=== PATIENT | female | born 1945 | race Caucasian/White ===

== ENCOUNTER 2019-10-19 09:08 | Outpatient (CLI) | payer MEDICARE, OTHER, SELFPAY ==
--- NOTE | 2019-10-19 | XR_ITS ---
WS: [id number] CHEST 2 VIEWS HISTORY: COUGH, CHRONIC COMPARISON: 09/05/2019 Lungs: Clear with no abnormality. No pleural effusion or pneumothorax. Cardiac size: Mildly enlarged cardiac silhouette. Mediastinum/Aorta: Mild atherosclerosis aorta. Bones: Normal. XR/XR chest 2V* [id number] IMPRESSION: Partially calcified thoracic aorta. No acute cardiopulmonary disease.
== END 2019-10-19 09:09 | disposition home or self-care (01) ==
LOC: WPI 09:17
PROVIDERS: Family Provider Electrodiagnostic Medicine; PCP Electrodiagnostic Medicine; Referring Provider Electrodiagnostic Medicine; Visit Provider Electrodiagnostic Medicine
DX: I70.0 Atherosclerosis of aorta (principal); R05 Cough
CPT/HCPCS: 71046

== ENCOUNTER 2020-03-13 06:41 | Emergency (ER) | payer MEDICARE, OTHER, SELFPAY ==
[2020-03-13 06:47] VITALS: BP 207/107; PULSE 96; RESP 20; TEMP 37.2; O2SAT 97; BMI 27.0
--- NOTE | 2020-03-13 06:52 | USCV_ITS ---
Olena Carmella Age: 74 Gender: F : 1945 Exam Date: 03/13/2020 07:20 Ordering Phys: Osei Victoria DO Technologist: KARON GREENE Exam Location: [facility] [place] Indication: PAIN AND SWELLING PROCEDURES: Venous duplex imaging was performed in only the right lower extremity. The following venous structures were evaluated: common femoral vein, profunda vein, proximal portion of the greater saphenous vein, superficial femoral vein, and the popliteal vein. In addition, the posterior tibial and peroneal trunk were evaluated. Serial compression, augmentation maneuvers, and spectral Doppler flow evaluation were performed. FINDINGS: Normal 2-D Doppler and augmentation and compressibility throughout the lower extremity venous structures. Additional imaging through the proximal calf veins also reveals no thrombus. Limited evaluation of the greater saphenous vein is patent with no thrombus. CONCLUSIONS No DVT right lower extremity. Dr. Day Lobato DO (Electronically Signed) Final Date: 13 March 2020 11:47 S
--- NOTE | 2020-03-13 07:11 | W.ED.EXTPRO ---
HPI - Extremity Problem General: Chief complaint: Extremity Problem,Nontraumatic Stated complaint: POSS CLOT IN RIGHTS LEG Time Seen by Provider: 03/13/20 06:52 History of Present Illness: HPI Narrative: She complains of pain and swelling to the posterior aspect of the right leg. No known injury. MD Complaint: extremity pain and extremity swelling Onset (ago): day(s) Pain Consistency: intermittent Location: right and lower extremity Quality: stabbing Radiation: none Relieving factors: nothing Exacerbating factors: weight bearing, walking and palpation Associated symptoms: Reports no associated symptoms Review of Systems General: Reports: 10 or more systems reviewed and unremarkable except in HPI and below PFSH ED PFSH: Medical History CAD (coronary artery disease) Diabetes Dyslipidemia HTN (hypertension) Ischemic cardiomyopathy Surgical History S/P appendectomy S/P cholecystectomy S/P hysterectomy Family History Other CAD (coronary artery disease) Cancer Diabetes Social History Smoking and tobacco status: former smoker Alcohol intake: never Physical Exam Extremity: COMMON NORMALS: full ROM, no joint enlargement and no clubbing, cyanosis or edema; negative for no calf tenderness GENERAL: Yes calf tenderness Course Vital Signs: Vital signs: Vital Signs Temperature 99.0 F 03/13/20 06:47 Pulse Rate 86 03/13/20 07:52 Respiratory Rate 18 03/13/20 07:52 Blood Pressure 100/62 03/13/20 07:52 Pulse Oximetry 98 03/13/20 07:52 MDM - Extremity (Nontraumatic) Lab Data: Labs: Lab Results 03/13/20 03/13/20 Range/Units 07:09 07:09 WBC 6.3 (4.0-10.0) 10^3/ uL RBC 4.33 (4.1-5.3) 10^6/u L Hgb 13.0 (11.5-15.3) g/dL Hct 40.7 (37.0-47.0) % MCV 94.0 (81-99) fL MCH 30.0 (28.0-34.0) pg MCHC 31.9 (30.0-36.0) g/dL RDW 12.0 L (12.1-15.1) % Plt Count 218 (130-400) 10^3/c mm MPV 11.0 H (7.4-10.4) fL Neut % (Auto) 58.8 % Lymph % (Auto) 28.2 % [place] % (Auto) 9.9 % Eos % (Auto) 1.9 % Baso % (Auto) 1.0 % Neut # (Auto) 3.7 (1.8-7.7) 10^3/u L Lymph # (Auto) 1.8 (0.8-4.8) 10^3/u L [place] # (Auto) 0.6 (0.2-0.9) 10^3/u L Eos # (Auto) 0.1 (0.0-0.8) 10^3/u L Baso # (Auto) 0.1 (0.0-0.1) 10^3/u L Nucleated RBC % (a uto) 0 % Nucleated RBCs # 0.0 /100WBC Sodium 135 L (136-145) mmol/L Potassium 4.3 (3.5-5.1) mmol/L Chloride 99 (98-107) mmol/L Carbon Dioxide 25 (22-29) mmol/L Anion Gap 15.3 (5-19) BUN 16 (8-23) mg/dL Creatinine 0.7 (0.5-0.9) mg/dL Glucose 388 H (65-115) mg/dL Calculated Osmolal ity 292 (285-295) mOsm/k g Calcium 11.0 H (8.5-10.5) mg/dL Total Bilirubin 0.3 (0.15-1.2) mg/dL AST 18 (0-32) U/L ALT 23 (0-33) U/L Alkaline Phosphata se 85 (35-105) IU/L Total Protein 7.6 (6.6-8.7) g/dL Albumin 4.3 (3.5-5.2) g/dL Globulin 3.3 (1.3-4.6) g/dL Discharge Plan Discharge Patient Disposition: Home, Self-Care Clinical Impression: Calf pain Qualifiers: Laterality: right Qualified Code(s): M79.661 - Pain in right lower leg Strain of calf muscle Qualifiers: Encounter type: initial encounter Laterality: right Qualified Code(s): S86.811A - Strain of other muscle(s) and tendon(s) at lower leg level, right leg, initial encounter Condition: Stable Prescriptions: New Tylenol-Codeine #3 300-30 mg tablet 1 tab PO Q6H PRN (Reason: pain) Qty: 10 RF: 0 No Action lisinopril 20 mg tablet 30 mg PO DAILY RF: 0 furosemide 20 mg tablet 20 mg PO DAILY RF: 0 coenzyme Q10 PO RF: 0 insulin glargine SUBCUT RF: 0 albuterol sulfate [Ventolin HFA] 90 mcg/actuation HFA aerosol inhaler 2 puff INHALATION Q6H PRNRF: 0 lysine [L-Lysine] 500 mg tablet 500 mg PO DAILY RF: 0 turmeric PO RF: 0 carvedilol 6.25 mg tablet See Rx Instructions .ROUTE .COMPLEX Qty: 270 RF: 3 Discharge Orders: Discharge Order (Routine); Ordered 03/13/20 Ordered By: Osei Victoria Referrals: Charbel Glez DO [Primary Care Provider] - Coding Level of Care Code 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
[2020-03-13 07:28] LABS: Basophils # 0.1 10^3/uL (0.0-0.1); Eosinophils # 0.1 10^3/uL (0.0-0.8); Eosinophils % 1.9 %; Hematocrit 40.7 % (37.0-47.0); Lymphocytes # 1.8 10^3/uL (0.8-4.8); Lymphocytes % 28.2 %; Mean Corpuscular HGB Conc 31.9 g/dL (30.0-36.0); Monocytes # 0.6 10^3/uL (0.2-0.9); Monocytes % 9.9 %; Neutrophils # 3.7 10^3/uL (1.8-7.7); Neutrophils % 58.8 %; Nucleated Red Blood Cells % 0 %; Platelet Count 218 10^3/cmm (130-400); Red Blood Count 4.33 10^6/uL (4.1-5.3); White Blood Count 6.3 10^3/uL (4.0-10.0)
[2020-03-13 07:45] LABS: Alanine Aminotransferase 23 U/L (0-33); Albumin Level 4.3 g/dL (3.5-5.2); Alkaline Phosphatase 85 IU/L (35-105); Anion Gap 15.3 (5-19); Aspartate Amino Transferase 18 U/L (0-32); Blood Urea Nitrogen 16 mg/dL (8-23); Carbon Dioxide 25 mmol/L (22-29); Chloride 99 mmol/L (98-107); Creatinine Clr Calc Pharmacy 56.2538; Globulin 3.3 g/dL (1.3-4.6); Glucose 388 mg/dL (65-115); Osmolality Calculated 292 mOsm/kg (285-295); Potassium 4.3 mmol/L (3.5-5.1); Sodium 135 mmol/L (136-145); Total Bilirubin 0.3 mg/dL (0.15-1.2); Total Protein 7.6 g/dL (6.6-8.7)
[2020-03-13 07:52] VITALS: BP 100/62; PULSE 86; RESP 18; O2SAT 98
[2020-03-13] MEDS: carvedilol 12.5 mg Tablet PO (08:14)
[2020-03-13] MEDS: lisinopril 20 mg Tablet PO (08:14)
[2020-03-13 08:27] VITALS: BP 190/118; PULSE 80; RESP 20; O2SAT 98
== END 2020-03-13 08:29 | disposition home or self-care (01) ==
PROVIDERS: Emergency Provider Family Medicine; PCP Electrodiagnostic Medicine
DX: S86.811A Strain of other muscle(s) and tendon(s) at lower leg level, right leg, initial encounter (principal); X58.XXXA Exposure to other specified factors, initial encounter; I25.10 Atherosclerotic heart disease of native coronary artery without angina pectoris; E11.9 Type 2 diabetes mellitus without complications; E78.5 Hyperlipidemia, unspecified; I10 Essential (primary) hypertension; Z87.891 Personal history of nicotine dependence; M79.604 Pain in right leg
CPT/HCPCS: 12345; 36415; 80053; 85025; 93971; 99281; 99283

== ENCOUNTER 2020-03-20 09:59 | Outpatient (CLI) | payer MEDICARE, OTHER, SELFPAY ==
--- NOTE | 2020-03-20 10:22 | USCV_ITS ---
Carmella Hyatt Age: 74 Gender: F : 1945 Exam Date: 03/20/2020 10:12 Ordering Phys: Charbel Glez DO Technologist: Exam Location: [facility] [place] Indication: HYPERTENSION RIGHT LEFT Brachial 183.00 mmHg Brachial 179.00 mmHg Pressure (mmHg) Waveform Pressure (mmHg) Waveform 131.00 [employer] 205.00 152.00 DPA 199.00 0.83 Ankle/Brachial Index 1.12 119.00 Pre-Exercise Toe Pressure 126.00 0.65 Pre-Exercise Toe/Brachial Index 0.69 FINDINGS Normal resting MICHAEL on the left side. Slightly diminished resting MICHAEL on the right side. Mildly diminished resting TBIs bilaterally CONCLUSIONS Features of mild peripheral artery disease bilaterally Dr Dakota Gilmore MD FAC (Electronically Signed) Final Date: 20 March 2020 18:08 S
== END 2020-03-20 10:00 | disposition home or self-care (01) ==
LOC: RAD 10:03
PROVIDERS: PCP Electrodiagnostic Medicine; Visit Provider Electrodiagnostic Medicine
DX: E11.65 Type 2 diabetes mellitus with hyperglycemia (principal); M79.661 Pain in right lower leg; I10 Essential (primary) hypertension; I73.9 Peripheral vascular disease, unspecified
CPT/HCPCS: 93922

== ENCOUNTER 2020-06-08 06:46 | Outpatient (CLI) | payer MEDICARE, OTHER, SELFPAY ==
--- NOTE | 2020-06-08 06:53 | XR_ITS ---
WS: [id number] Right knee, 3 views, 06/08/2020 Clinical Data: fall, knee pain Comparison: Right knee, 04/30/2014. Findings: No fractures or dislocations are seen. Mild narrowing of the medial joint compartment is noted.. The patella is intact. The soft tissues are unremarkable. XR/XR knee RT 3V* [id number] Impression: Negative for right knee fracture.
== END 2020-06-08 06:47 | disposition home or self-care (01) ==
PROVIDERS: PCP Electrodiagnostic Medicine; Visit Provider Electrodiagnostic Medicine
DX: M25.561 Pain in right knee (principal); W19.XXXA Unspecified fall, initial encounter
CPT/HCPCS: 73562

== ENCOUNTER 2021-02-22 02:34 | Emergency (ER) | payer MEDICARE, OTHER, SELFPAY ==
[2021-02-22] VITALS (35 sets, daily range): BP systolic 99–209; BP diastolic 70–147; PULSE 0–105; RESP 13–31; TEMP 36.9; O2SAT 82–97; BMI 26.4
--- NOTE | 2021-02-22 02:41 | ECG_ITS ---
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 Measurements Intervals Guy Rate: 80 P: 38 MO: 209 QRS: 9 QRSD: 94 T: 40 QT: 395 QTc: 458 Interpretive Statements SINUS RHYTHM MINIMAL ST DEPRESSION [0.025+ mV ST DEPRESSION] Compared to ECG 09/05/2019 23:12:10 ST (T wave) deviation now present Left ventricular hypertrophy no longer present Myocardial infarct finding no longer present Electronically Signed On 02-22-2021 21:54:40 CDT by Milton Diaz M.D. [id number]
--- NOTE | 2021-02-22 02:41 | XRR_ITS ---
PROCEDURE INFORMATION: Exam: XR Chest Exam date and time: 02/22/2021 2:46 AM Age: 75 years old Clinical indication: Shortness of breath; Patient HX: SOB. Transient bradycardia. Artifacts removed as best as possible. TECHNIQUE: Imaging protocol: XR of the chest. Views: 1 view. COMPARISON: CR XR chest 2V* [id number] 10/19/2019 9:32 AM FINDINGS: Lungs: Mild interstitial opacities in the right lung can be secondary to viral infection or asymmetric pulmonary edema. Pleural spaces: Unremarkable. No pleural effusion. No pneumothorax. Heart/Mediastinum: Mild cardiomegaly. Bones/joints: No acute fracture. XR/XR chest 1V portable [id number] IMPRESSION: Mild interstitial opacities in the right lung can be secondary to viral infection or asymmetric pulmonary edema.
--- NOTE | 2021-02-22 02:44 | ED_ITS ---
HPI - SOB/Dyspnea General: Chief Complaint: Shortness of Breath/Dyspnea Stated Complaint: SOB Time Seen by Provider: 02/22/21 02:35 Source: patient Mode of arrival: ambulatory Limitations: no limitations History of Present Illness: HPI Narrative: 75-year-old female does have a history of COPD. She states she is at work tonight roughly 30 minutes ago and had sudden onset of severe shortness of breath. Patient here is quite hypertensive and is in distress. She is able to speak in roughly 2-4 word sentences. She does have wheezing and rales. She denies any cough or fever. States her dyspnea is worse with exertion and improves somewhat with rest. She denies any chest pain. Denies any nausea vomiting. Associated symptoms: Deny abdominal pain, chest pain, fever(s), nausea or vomiting Review of Systems Const: Denies: fever(s), chills, body aches or change in appetite Eyes: Denies: blurry vision or eye discomfort ENMT: Denies: throat pain or dental pain Card: Denies: chest pain Resp: Reports: dyspnea GI: Denies: abdominal pain, nausea, vomiting or diarrhea : Denies: dysuria Musc: Denies: neck pain or back pain Skin/Breast: Denies: rash Neuro: Denies: headache(s) Psych: Denies: depression Jose/Lymph: Denies: easy bruising All/Imm: Denies: urticaria PFSH ED PFSH: Medical History (Updated 02/22/21 @ 04:45 by Chen Quezada MD) CAD (coronary artery disease) Diabetes Dyslipidemia HTN (hypertension) Ischemic cardiomyopathy Surgical History S/P appendectomy S/P cholecystectomy S/P hysterectomy Family History Other CAD (coronary artery disease) Cancer Diabetes Social History Smoking and tobacco status: former smoker Alcohol intake: never Physical Exam Const: COMMON NORMALS: patient oriented x3 and healthy appearing GENERAL APPEARANCE: in distress HENMT: COMMON NORMALS: normocephalic and atraumatic HEAD & SCALP: normocephalic and atraumatic Eye: COMMON NORMALS: Equal, round and reactive pupils present and EOMs intact bilaterally PUPIL: Yes Equal, round and reactive pupils present Neck/C-Spine: COMMON NORMALS: full ROM and supple Chest: COMMONS NORMALS: normal inspection of the chest and normal palpation of entire chest wall Resp: COMMON NORMALS: clear to auscultation bilaterally EFFORT & INSPECTION: Yes tachypneic, Yes respiratory distress and Yes labored AUSCULTATION: clear to auscultation bilaterally, rales and wheezes Cardio: COMMON NORMALS: regular rate, regular rhythm and No murmurs present (C ardio) RATE: regular rate RHYTHM: regular rhythm GI: COMMON NORMALS: Normal to inspection, nondistended, normoactive bowel sounds present, Soft to palpation, non-tender and no masses PALPATION: Yes Soft to palpation Extremity: COMMON NORMALS: normal to inspection and full ROM Neuro: COMMON NORMALS: patient oriented x3, moves all extremities and no focal motor deficits Psych: COMMON NORMALS: mental status grossly normal, Normal thought process present and cooperative THOUGHT PROCESS: Normal thought process present Skin: COMMON NORMALS: no rashes or lesions noted and no wounds GENERAL SKIN EXAM: no rashes or lesions noted Course Reevaluation(s): Reevaluation #1: Patient was placed on BiPAP and given labetalol for her high blood pressure as is concerned she had flash pulmonary edema. Patient believes had a vagal episode along with the fact labetalol and became bradycardic. Her heart rate went down into the 30s but only lasted 1 to 2 minutes. It increased back into the 70s after that. Her blood pressure now is 110/80. Patient had improved on the BiPAP and will stop BiPAP and place her on oxygen as she states the BiPAP makes her feel too anxious and suffocating Time: 03:24 Reevaluation #2: Patient is much improved here and is no longer requiring any oxygen. Her pulse ox in the room is 96% on room air. She able to speak in full senses and states she feels back to her baseline. Patient likely had a sudden asthma attack. Her blood pressure here is improved as well and is now 150/80. We will check a 2-hour troponin at this time. Time: 04:43 Vital Signs: Vital signs: Vital Signs Temperature 98.4 F 02/22/21 02:39 Pulse Rate 93 02/22/21 05:35 Respiratory Rate 18 02/22/21 05:35 Blood Pressure 162/93 02/22/21 05:35 Pulse Oximetry 94 02/22/21 05:35 MDM - SOB/Dyspnea MDM Narrative: Medical decision making narrative: Patient presents here with a likely asthma exacerbation. She is much improved here and is not requiring any more oxygen. I feel she is stable for discharge. Her blood pressure is normalized as well. We will place her on doxycycline as her x-ray shows a possible pneumonia. Patient has had Covid in the Covid vaccine and I do not believe she has Covid. We will place her on steroids as well. And prescribe her albuterol nebs as she has a nebulizer at home as well. Lab Data: Labs: Lab Results 02/22/21 02/22/21 02/22/21 Range/Units 02:50 02:50 02:50 WBC 6.2 (4.0-10.0) 10^3/ uL RBC 4.60 (4.1-5.3) 10^6/u L Hgb 13.9 (11.5-15.3) g/dL Hct 42.9 (37.0-47.0) % MCV 93.3 (81-99) fL MCH 30.2 (28.0-34.0) pg MCHC 32.4 (30.0-36.0) g/dL RDW 12.3 (12.1-15.1) % Plt Count 234 (130-400) 10^3/c mm MPV 10.8 H (7.4-10.4) fL Neut % (Auto) 45.9 % Lymph % (Auto) 40.1 % [place] % (Auto) 10.7 % Eos % (Auto) 2.3 % Baso % (Auto) 0.8 % Neut # (Auto) 2.83 (1.8-7.7) 10^3/u L Lymph # (Auto) 2.5 (0.8-4.8) 10^3/u L [place] # (Auto) 0.7 (0.2-0.9) 10^3/u L Eos # (Auto) 0.1 (0.0-0.8) 10^3/u L Baso # (Auto) 0.1 (0.0-0.1) 10^3/u L Nucleated RBC % (a uto) 0 % Nucleated RBCs # 0.0 /100WBC Specimen Type Sample Site ABG pH (7.35-7.45) ABG pCO2 (35-45) mmHg ABG pO2 (80.0-100.0) mmH g ABG HCO3 (22-26) mmol/L ABG Base Excess (-2.0-2.0) mmol/ L Khris Test Hematocrit (37-47) % Hgb O2 Saturation (95-100) % Carboxyhemoglobin (0.4-20.1) %THgb Methemoglobin (0.4-1.5) % Total Hemoglobin (12-16) g/dL O2 Delivery Device FiO2 % Emergency Room Registered Nurse ID Sodium 143 (136-145) mmol/L Potassium 3.8 (3.5-5.1) mmol/L Chloride 106 (98-107) mmol/L Carbon Dioxide 29 (22-29) mmol/L Anion Gap 11.8 (5-19) BUN 23 (8-23) mg/dL Creatinine 0.8 (0.5-0.9) mg/dL GFR Calculation Not Reportable Glucose 208 H (65-115) mg/dL Calculated Osmolal ity 306 H (285-295) mOsm/k g Calcium 9.9 (8.5-10.5) mg/dL Total Bilirubin 0.3 (0.15-1.2) mg/dL AST 16 (0-32) U/L ALT 18 (0-33) U/L Alkaline Phosphata se 88 (35-105) IU/L Troponin T Baselin e 9 (0-10) ng/L Troponin T 120 Min [place] (0-10) ng/L Delta Troponin T (0-10) ABS# NT-Pro-B Natriuret Pep 255 (0-450) pg/mL Total Protein 7.5 (6.6-8.7) g/dL Albumin 4.5 (3.5-5.2) g/dL Globulin 3.0 (1.3-4.6) g/dL 02/22/21 02/22/21 Range/Units 02:55 04:42 WBC (4.0-10.0) 10^3/ uL RBC (4.1-5.3) 10^6/u L Hgb (11.5-15.3) g/dL Hct (37.0-47.0) % MCV (81-99) fL MCH (28.0-34.0) pg MCHC (30.0-36.0) g/dL RDW (12.1-15.1) % Plt Count (130-400) 10^3/c mm MPV (7.4-10.4) fL Neut % (Auto) % Lymph % (Auto) % [place] % (Auto) % Eos % (Auto) % Baso % (Auto) % Neut # (Auto) (1.8-7.7) 10^3/u L Lymph # (Auto) (0.8-4.8) 10^3/u L [place] # (Auto) (0.2-0.9) 10^3/u L Eos # (Auto) (0.0-0.8) 10^3/u L Baso # (Auto) (0.0-0.1) 10^3/u L Nucleated RBC % (a uto) % Nucleated RBCs # /100WBC Specimen Type Arterial Sample Site Brachial, right ABG pH 7.39 (7.35-7.45) ABG pCO2 43.3 (35-45) mmHg ABG pO2 72.7 L (80.0-100.0) mmH g ABG HCO3 26.2 H (22-26) mmol/L ABG Base Excess 0.9 (-2.0-2.0) mmol/ L Khris Test N/a Hematocrit 41.9 (37-47) % Hgb O2 Saturation 93.5 L (95-100) % Carboxyhemoglobin 0.8 (0.4-20.1) %THgb Methemoglobin 0.9 (0.4-1.5) % Total Hemoglobin 13.7 (12-16) g/dL O2 Delivery Device Bipap FiO2 35.0 % Emergency Room Registered Nurse ID Harkr Sodium (136-145) mmol/L Potassium (3.5-5.1) mmol/L Chloride (98-107) mmol/L Carbon Dioxide (22-29) mmol/L Anion Gap (5-19) BUN (8-23) mg/dL Creatinine (0.5-0.9) mg/dL GFR Calculation Glucose (65-115) mg/dL Calculated Osmolal ity (285-295) mOsm/k g Calcium (8.5-10.5) mg/dL Total Bilirubin (0.15-1.2) mg/dL AST (0-32) U/L ALT (0-33) U/L Alkaline Phosphata se (35-105) IU/L Troponin T Baselin e (0-10) ng/L Troponin T 120 Min [place] 12.23 H (0-10) ng/L Delta Troponin T 3.23 (0-10) ABS# NT-Pro-B Natriuret Pep (0-450) pg/mL Total Protein (6.6-8.7) g/dL Albumin (3.5-5.2) g/dL Globulin (1.3-4.6) g/dL Imaging Data^: CXR: Attestation: I personally reviewed and interpreted this imaging study as follows: Radiologist's impression: [address] [address] XRay Report Signed Patient: Carmlela Hyatt Unit #: [id number] : 1945 Age/Sex: 75 / F ADM Date: 02/22/21 Loc: ER Room/Bed: Attending Dr: Ordering Provider/Ordering MD: Chen Quezada MD Date of Service: 02/22/21 Procedure(s): XR chest 1V portable [id number] Accession Number(s): [id number] Report Number: [id number] PROCEDURE INFORMATION: Exam: XR Chest Exam date and time: 02/22/2021 2:46 AM Age: 75 years old Clinical indication: Shortness of breath; Patient HX: SOB. Transient bradycardia. Artifacts removed as best as possible. TECHNIQUE: Imaging protocol: XR of the chest. Views: 1 view. COMPARISON: CR XR chest 2V* [id number] 10/19/2019 9:32 AM FINDINGS: Lungs: Mild interstitial opacities in the right lung can be secondary to viral infection or asymmetric pulmonary edema. Pleural spaces: Unremarkable. No pleural effusion. No pneumothorax. Heart/Mediastinum: Mild cardiomegaly. Bones/joints: No acute fracture. XR/XR chest 1V portable [id number] IMPRESSION: Mild interstitial opacities in the right lung can be secondary to viral infection or asymmetric pulmonary edema. EKG Data^: EKG 1: Attestation: I personally reviewed and interpreted this EKG as follows: EKG Interpretation Date: 02/22/21 EKG interpretation time: 03:12 Interpretation: nsr hr [address] elevation qrs 94 qtc 431 EKG 2: Attestation: I personally reviewed and interpreted this EKG as follows: EKG Interpretation Date: 02/22/21 EKG interpretation time: 03:20 Interpretation: sinus tasha hr [address] elevation qrs 84 qtc 415 Discharge Plan Discharge Patient Disposition: Home Clinical Impression: Asthma with exacerbation Qualifiers: Asthma severity: unspecified severity Asthma persistence: unspecified Qualified Code(s): J45.901 - Unspecified asthma with (acute) exacerbation Condition: Stable Prescriptions: New albuterol sulfate 2.5 mg /3 mL (0.083 %) solution for nebulization 2.5 mg INHALATION Q4H PRN (Reason: shortness of breath or wheezing) Qty: 90 RF: 0 prednisone 50 mg tablet 50 mg PO DAILY Qty: 5 RF: 0 doxycycline hyclate 100 mg capsule 100 mg PO BID 7 Days Qty: 14 RF: 0 No Action vitamin B complex [B Complex-Vitamin B12] PO RF: 0 Cardio-plus PO RF: 0 amlodipine 5 mg tablet 5 mg PO DAILY Qty: 90 RF: 2 coenzyme Q10 PO RF: 0 albuterol sulfate [Ventolin HFA] 90 mcg/actuation HFA aerosol inhaler 2 puff INHALATION Q6H PRNRF: 0 lysine [L-Lysine] 500 mg tablet 500 mg PO DAILY RF: 0 turmeric PO RF: 0 Levemir FlexTouch U-100 Insuln 100 unit/mL (3 mL) insulin pen 28 unit SUBCUT DAILY RF: 0 carvedilol 6.25 mg tablet See Rx Instructions .ROUTE .COMPLEX Qty: 270 RF: 3 lisinopril 40 mg tablet 40 mg PO DAILY Qty: 90 RF: 2 Tylenol-Codeine #3 300-30 mg tablet 1 tab PO Q6H PRN (Reason: pain) Qty: 10 RF: 0 Discharge Orders: Discharge ED (Routine); Ordered 02/22/21 Ordered By: Chen Quezada Referrals: Charbel Glez, [Primary Care Provider] - 1-3 days Discharge Diet: Advance as tolerated Discharge Activity: Resume usual activity Patient Instructions: Asthma (ED) Coding Level of Care Code ED Production Consultant for Chg Fwd Exam Comprehensive
[2021-02-22] MEDS: ipratropium-albuterol 3 mL Neb INHALATION (03:00)
[2021-02-22 03:01] LABS: Basophils # 0.1 10^3/uL (0.0-0.1); Basophils % 0.8 %; Eosinophils # 0.1 10^3/uL (0.0-0.8); Eosinophils % 2.3 %; Hematocrit 42.9 % (37.0-47.0); Hemoglobin 13.9 g/dL (11.5-15.3); Lymphocytes # 2.5 10^3/uL (0.8-4.8); Lymphocytes % 40.1 %; Mean Corpuscular HGB Conc 32.4 g/dL (30.0-36.0); Mean Corpuscular Hemoglobin 30.2 pg (28.0-34.0); Mean Corpuscular Volume 93.3 fL (81-99); Mean Platelet Volume 10.8 fL (7.4-10.4); Monocytes # 0.7 10^3/uL (0.2-0.9); Monocytes % 10.7 %; Neutrophils # 2.83 10^3/uL (1.8-7.7); Neutrophils % 45.9 %; Nucleated Red Blood Cells % 0 %; Platelet Count 234 10^3/cmm (130-400); Red Cell Distribution Width 12.3 % (12.1-15.1); White Blood Count 6.2 10^3/uL (4.0-10.0)
[2021-02-22] MEDS: labetalol 5 mg/mL SDV 20mL 20 MG IVP (03:01)
[2021-02-22] MEDS: nitroglycerin 0.4 mg sublingual Tablet SUBLINGUAL (03:05)
[2021-02-22 03:06] LABS: ABG PCO2 43.3 mmHg (35-45); ABG PH Result 7.39 (7.35-7.45); Arterial Blood Gas Hematocrit 41.9 % (37-47); Base Excess ABG 0.9 mmol/L (-2.0-2.0); Blood Gas Operator Identificat HARKR; Blood Gas Sample Site Brachial, right; Blood Gas Sample Type Arterial; Carboxyhemoglobin 0.8 %THgb (0.4-20.1); HCO3 ABG 26.2 mmol/L (22-26); HGB O2 Sat 93.5 % (95-100); Methemoglobin 0.9 % (0.4-1.5); Oxygen Device BIPAP; PO2 ABG 72.7 mmHg (80.0-100.0); Total Hemoglobin 13.7 g/dL (12-16)
[2021-02-22 03:23] LABS: Troponin(5th) Baseline 9 ng/L (0-10)
[2021-02-22 03:32] LABS: Alanine Aminotransferase 18 U/L (0-33); Albumin Level 4.5 g/dL (3.5-5.2); Alkaline Phosphatase 88 IU/L (35-105); Anion Gap 11.8 (5-19); Aspartate Amino Transferase 16 U/L (0-32); Blood Urea Nitrogen 23 mg/dL (8-23); Calcium 9.9 mg/dL (8.5-10.5); Carbon Dioxide 29 mmol/L (22-29); Chloride 106 mmol/L (98-107); Creatinine Clr Calc Pharmacy 54.8687; Glucose 208 mg/dL (65-115); NT Pro B Type Natriuretic Pept 255 pg/mL (0-450); Osmolality Calculated 306 mOsm/kg (285-295); Potassium 3.8 mmol/L (3.5-5.1); Sodium 143 mmol/L (136-145); Total Bilirubin 0.3 mg/dL (0.15-1.2); Total Protein 7.5 g/dL (6.6-8.7)
--- NOTE | 2021-02-22 04:41 | ECG_ITS ---
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 Measurements Intervals [place] Rate: 49 P: 69 OR: 179 QRS: 40 QRSD: 84 T: 69 QT: 444 QTc: 404 Interpretive Statements SINUS BRADYCARDIA MODERATE ST DEPRESSION [0.05+ mV ST DEPRESSION] Compared to ECG 02/22/2021 03:12:46 Sinus rhythm no longer present ST (T wave) deviation still present Electronically Signed On 02-22-2021 22:01:07 CDT by Milton Diaz M.D. [id number] f
[2021-02-22 05:15] LABS: Troponin 5 2HR 12.23 ng/L (0-10); Troponin 5 2HR Delta 3.23 ABS# (0-10)
== END 2021-02-22 05:36 | disposition home or self-care (01) ==
PROVIDERS: Emergency Provider Emergency Medicine; PCP Electrodiagnostic Medicine
DX: J45.901 Unspecified asthma with (acute) exacerbation (principal); I25.10 Atherosclerotic heart disease of native coronary artery without angina pectoris; E11.9 Type 2 diabetes mellitus without complications; E78.5 Hyperlipidemia, unspecified; I10 Essential (primary) hypertension; Z87.891 Personal history of nicotine dependence; Z79.4 Long term (current) use of insulin
CPT/HCPCS: 36600; 71045; 80053; 82805; 83880; 84484; 85025; 93005; 94640; 94660; 96374; 96375; 99284; J2930; J3490; J7611

== ENCOUNTER 2021-02-23 09:58 | Emergency (ER) | payer MEDICARE, OTHER, SELFPAY ==
--- NOTE | 2021-02-23 10:01 | XRR_ITS ---
PROCEDURE INFORMATION: Exam: XR Chest Exam date and time: 02/23/2021 10:02 AM Age: 75 years old Clinical indication: Cough and dyspnea; Prior surgery; Surgery date: 6+ months; Surgery type: Stents x3; Additional info: Dyspnea/cough TECHNIQUE: Imaging protocol: XR of the chest. Views: 1 view. COMPARISON: CR (CHEST, ) 02/22/2021 3:02 AM FINDINGS: Lungs: Bilateral hilar to lower lobe atelectasis versus minimal infiltrate. Emphysematous changes suspected. Pleural spaces: Unremarkable. No pleural effusion. No pneumothorax. Heart/Mediastinum: Cardiomegaly. Bones/joints: Unremarkable. XR/XR chest 1V portable [id number] IMPRESSION: 1. Cardiomegaly. 2. Bilateral hilar to lower lobe atelectasis versus minimal infiltrate. 3. Emphysematous changes suspected.
--- NOTE | 2021-02-23 10:01 | ECG_ITS ---
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 Measurements Intervals [place] Rate: 79 P: 24 SD: 195 QRS: 3 QRSD: 85 T: 21 QT: 377 QTc: 435 Interpretive Statements SINUS RHYTHM MODERATE VOLTAGE CRITERIA FOR LVH, CONSIDER NORMAL VARIANT [MEETS CRITERIA IN ONE OF: R(aVL), S(V1), R(V5), R(V5/V6)+S(V1)] Compared to ECG 02/22/2021 03:20:32 Sinus bradycardia no longer present ST (T wave) deviation no longer present Electronically Signed On 02-23-2021 14:47:57 CDT by Dakota Gilmore M.D. [id number]
--- NOTE | 2021-02-23 10:02 | ED_ITS ---
HPI - SOB/Dyspnea General: Chief Complaint: Shortness of Breath/Dyspnea Stated Complaint: SOB Time Seen by Provider: 02/23/21 10:01 History of Present Illness: HPI Narrative: 75-year-old female complaining of shortness of breath. Mildly productive cough pain with deep breath on inspiration. Patient was seen yesterday and started on antibiotic and steroids. She noticed tachycardia with the albuterol nebulizer. She had a single episode of hemoptysis has not had any recurrence. She states she just felt funny when she used the albuterol and did not dare to use it anymore. She has a known history of coronary disease she was supposed to have a stress test but did not because she was concerned about having a stress test because of her previous cardiac stenting. MD elicited complaint: shortness of breath and cough Pertinent past history: asthma, diabetes and other (CAD) Onset (ago): day(s) Context: recent illness Timing: intermittent Severity: moderate Exacerbating factors: coughing and inspiration Relieving factors: rest and bronchodilators Known history of: asthma, diabetes and other (CAD) Associated symptoms: Reports chest congestion, chest pain and hemoptysis; Deny abdominal pain, cough, diaphoresis, dizziness, extremity pain, fever(s), lightheadedness, myalgias, nausea, orthopnea, palpitations, paresthesias, polydipsia, polyuria, rash, sense of impending doom, syncope or vomiting Treatment prior to arrival: bronchodilator Review of Systems Const: Denies: fever(s) or diaphoresis ENMT: Denies: throat pain, ear or mastoid pain, nasal discharge or nasal congestion Card: Reports: chest pain; Denies: palpitations, lightheadedness, syncope or orthopnea Resp: Reports: dyspnea, productive cough, pain on inspiration, hemoptysis and chest congestion GI: Denies: abdominal pain, nausea or vomiting : Denies: flank pain, difficulty voiding, dysuria, urinary frequency or urinary urgency Musc: Denies: extremity pain Skin/Breast: Denies: rash or pruritus Neuro: Denies: dizziness Endo: Denies: polyuria or polydipsia [facility] ED PFSH: Medical History (Updated 02/23/21 @ 13:24 by Kevin Paz DO) CAD (coronary artery disease) Diabetes Dyslipidemia HTN (hypertension) Ischemic cardiomyopathy Surgical History S/P appendectomy S/P cholecystectomy S/P hysterectomy Family History Other CAD (coronary artery disease) Cancer Diabetes Social History Smoking and tobacco status: former smoker Alcohol intake: never Physical Exam Const: COMMON NORMALS: no acute distress GENERAL APPEARANCE: cooperative and comfortable ORIENTATION/CONSCIOUSNESS: Yes awake, Yes oriented to person, Yes oriented to place and Yes oriented to time HENMT: COMMON NORMALS: normocephalic, atraumatic and hearing grossly normal bilaterally HEAD & SCALP: normocephalic and atraumatic Eye: COMMON NORMALS: Equal, round and reactive pupils present, EOMs intact bilaterally, conjunctivae normal and no scleral icterus CONJUNCTIVA: Yes conjunctivae normal PUPIL: Yes Equal, round and reactive pupils present Neck/C-Spine: COMMON NORMALS: full ROM, no lymphadenopathy, supple and no JVD Resp: COMMON NORMALS: normal respiratory effort, No retractions, No use of accessory muscles and clear to auscultation bilaterally AUSCULTATION: clear to auscultation bilaterally Cardio: COMMON NORMALS: no JVD, regular rate, regular rhythm and No murmurs present (Cardio) RATE: regular rate RHYTHM: regular rhythm GI: COMMON NORMALS: Soft to palpation and No hepatosplenomegaly present AUSCULTATION: Yes normoactive bowel sounds PALPATION: Yes Soft to palpation, No Tenderness to palpation present (GI), No Guarding due to palpation present (GI) and Yes No hepatosplenomegaly present Extremity: COMMON NORMALS: normal to inspection, capillary refill normal, no clubbing, cyanosis or edema, no calf tenderness and no pedal edema Neuro: SENSORIUM/ORIENTATION: Yes oriented to person, Yes oriented to place and Yes oriented to time Skin: COMMON NORMALS: no rashes or lesions noted GENERAL SKIN EXAM: no rashes or lesions noted Course Vital Signs: Vital signs: Vital Signs Temperature 97.8 F 02/23/21 10:05 Pulse Rate 80 02/23/21 13:41 Respiratory Rate 18 02/23/21 13:41 Blood Pressure 185/97 02/23/21 13:41 Pulse Oximetry 97 02/23/21 13:41 MDM - SOB/Dyspnea MDM Narrative: Medical decision making narrative: Reviewed findings with the patient. We will discharge her home her troponin is negative. Chest x-ray is shows questionable area of infiltrate but no clear infiltrates. EKG did not show anything acute we will discharge her home continue the antibiotics and steroids encourage her to follow-up with Dr. Talbot to get the cardiac stress test rescheduled. If has worsening or change symptoms return. Encourage her to watch her blood sugars closely while on the steroids. Lab Data: Labs: Lab Results 02/23/21 02/23/21 02/23/21 Range/Units 10:38 10:38 10:38 WBC 13.9 H (4.0-10.0) 10^3/ uL RBC 4.09 L (4.1-5.3) 10^6/u L Hgb 12.5 (11.5-15.3) g/dL Hct 38.0 (37.0-47.0) % MCV 92.9 (81-99) fL MCH 30.6 (28.0-34.0) pg MCHC 32.9 (30.0-36.0) g/dL RDW 12.2 (12.1-15.1) % Plt Count 228 (130-400) 10^3/c mm MPV 10.7 H (7.4-10.4) fL Neut % (Auto) 78.2 % Lymph % (Auto) 14.0 % [place] % (Auto) 7.4 % Eos % (Auto) 0.0 % Baso % (Auto) 0.1 % Neut # (Auto) 10.90 H (1.8-7.7) 10^3/u L Lymph # (Auto) 2.0 (0.8-4.8) 10^3/u L [place] # (Auto) 1.0 H (0.2-0.9) 10^3/u L Eos # (Auto) 0.0 (0.0-0.8) 10^3/u L Baso # (Auto) 0.0 (0.0-0.1) 10^3/u L Nucleated RBC % (a uto) 0 % Nucleated RBCs # 0.0 /100WBC Sodium 143 (136-145) mmol/L Potassium 4.3 (3.5-5.1) mmol/L Chloride 107 (98-107) mmol/L Carbon Dioxide 26 (22-29) mmol/L Anion Gap 14.3 (5-19) BUN 21 (8-23) mg/dL Creatinine 0.7 (0.5-0.9) mg/dL GFR Calculation Not Reportable Glucose 169 H (65-115) mg/dL Calculated Osmolal ity 303 H (285-295) mOsm/k g Calcium 9.9 (8.5-10.5) mg/dL Total Bilirubin 0.5 (0.15-1.2) mg/dL AST 18 (0-32) U/L ALT 16 (0-33) U/L Alkaline Phosphata se 75 (35-105) IU/L Troponin T Baselin e 20 H (0-10) ng/L Troponin T 120 Min [place] (0-10) ng/L Delta Troponin T (0-10) ABS# Total Protein 6.9 (6.6-8.7) g/dL Albumin 4.4 (3.5-5.2) g/dL Globulin 2.5 (1.3-4.6) g/dL 02/23/21 Range/Units 12:37 WBC (4.0-10.0) 10^3/ uL RBC (4.1-5.3) 10^6/u L Hgb (11.5-15.3) g/dL Hct (37.0-47.0) % MCV (81-99) fL MCH (28.0-34.0) pg MCHC (30.0-36.0) g/dL RDW (12.1-15.1) % Plt Count (130-400) 10^3/c mm MPV (7.4-10.4) fL Neut % (Auto) % Lymph % (Auto) % [place] % (Auto) % Eos % (Auto) % Baso % (Auto) % Neut # (Auto) (1.8-7.7) 10^3/u L Lymph # (Auto) (0.8-4.8) 10^3/u L [place] # (Auto) (0.2-0.9) 10^3/u L Eos # (Auto) (0.0-0.8) 10^3/u L Baso # (Auto) (0.0-0.1) 10^3/u L Nucleated RBC % (a uto) % Nucleated RBCs # /100WBC Sodium (136-145) mmol/L Potassium (3.5-5.1) mmol/L Chloride (98-107) mmol/L Carbon Dioxide (22-29) mmol/L Anion Gap (5-19) BUN (8-23) mg/dL Creatinine (0.5-0.9) mg/dL GFR Calculation Glucose (65-115) mg/dL Calculated Osmolal ity (285-295) mOsm/k g Calcium (8.5-10.5) mg/dL Total Bilirubin (0.15-1.2) mg/dL AST (0-32) U/L ALT (0-33) U/L Alkaline Phosphata se (35-105) IU/L Troponin T Baselin e (0-10) ng/L Troponin T 120 Min [place] 22.38 H (0-10) ng/L Delta Troponin T 2.38 (0-10) ABS# Total Protein (6.6-8.7) g/dL Albumin (3.5-5.2) g/dL Globulin (1.3-4.6) g/dL Discharge Plan Discharge Patient Disposition: Home Clinical Impression: Asthma with exacerbation, HTN (hypertension), Diabetes, Cough with hemoptysis Condition: Stable Prescriptions: No Action vitamin B complex [B Complex-Vitamin B12] 1 tab PO DAILY RF: 0 amlodipine 5 mg tablet 5 mg PO DAILY MDD see pharmacy comment Qty: 90 RF: 2 coenzyme Q10 1 tab PO DAILY RF: 0 albuterol sulfate [Ventolin HFA] 90 mcg/actuation HFA aerosol inhaler 2 puff INHALATION Q6H PRN (Reason: Shortness Of Breath) RF: 0 Levemir FlexTouch U-100 Insuln 100 unit/mL (3 mL) insulin pen 30 unit SUBCUT BID RF: 0 carvedilol 6.25 mg tablet See Rx Instructions .ROUTE .COMPLEX Qty: 270 RF: 3 lisinopril 40 mg tablet 40 mg PO DAILY Qty: 90 RF: 2 albuterol sulfate 2.5 mg /3 mL (0.083 %) solution for nebulization 2.5 mg INHALATION Q4H PRN (Reason: shortness of breath or wheezing) Qty: 90 RF: 0 prednisone 50 mg tablet 50 mg PO DAILY Qty: 5 RF: 0 doxycycline hyclate 100 mg capsule 100 mg PO BID 7 Days Qty: 14 RF: 0 turmeric 400 mg Capsule 400 mg PO DAILY RF: 0 Discharge Orders: Discharge ED (Routine); Ordered 02/23/21 Ordered By: Kevin Paz Referrals: Charbel Glez, [Primary Care Provider] - Discharge Diet: Usual diet Discharge Activity: Resume usual activity Patient Instructions: Opioid Safety Activity Restrictions/Additional Instructions: 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 Coding Level of Care Code ED Kit Planner for Filomena Nguyen
[2021-02-23 10:05] VITALS: BP 170/105; PULSE 80; RESP 18; TEMP 36.6; O2SAT 97; BMI 27.1
[2021-02-23 10:42] VITALS: BP 193/89; PULSE 75; RESP 18; O2SAT 97
[2021-02-23 10:49] LABS: Basophils % 0.1 %; Hemoglobin 12.5 g/dL (11.5-15.3); Mean Corpuscular HGB Conc 32.9 g/dL (30.0-36.0); Mean Corpuscular Hemoglobin 30.6 pg (28.0-34.0); Mean Corpuscular Volume 92.9 fL (81-99); Mean Platelet Volume 10.7 fL (7.4-10.4); Monocytes % 7.4 %; Neutrophils % 78.2 %; Nucleated Red Blood Cells % 0 %; Platelet Count 228 10^3/cmm (130-400); Red Blood Count 4.09 10^6/uL (4.1-5.3); Red Cell Distribution Width 12.2 % (12.1-15.1); White Blood Count 13.9 10^3/uL (4.0-10.0)
[2021-02-23 11:10] LABS: Alanine Aminotransferase 16 U/L (0-33); Albumin Level 4.4 g/dL (3.5-5.2); Alkaline Phosphatase 75 IU/L (35-105); Anion Gap 14.3 (5-19); Aspartate Amino Transferase 18 U/L (0-32); Blood Urea Nitrogen 21 mg/dL (8-23); Calcium 9.9 mg/dL (8.5-10.5); Carbon Dioxide 26 mmol/L (22-29); Chloride 107 mmol/L (98-107); Creatinine Clr Calc Pharmacy 55.0375; Globulin 2.5 g/dL (1.3-4.6); Glucose 169 mg/dL (65-115); Osmolality Calculated 303 mOsm/kg (285-295); Potassium 4.3 mmol/L (3.5-5.1); Sodium 143 mmol/L (136-145); Total Bilirubin 0.5 mg/dL (0.15-1.2); Total Protein 6.9 g/dL (6.6-8.7)
[2021-02-23 11:13] LABS: Troponin(5th) Baseline 20 ng/L (0-10)
[2021-02-23 11:18] VITALS: BP 186/102; PULSE 61; RESP 18; O2SAT 96
--- NOTE | 2021-02-23 12:01 | ECG_ITS ---
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 Measurements Intervals [place] Rate: 67 P: 82 AL: 182 QRS: 5 QRSD: 89 T: 31 QT: 409 QTc: 434 Interpretive Statements SINUS RHYTHM WITH SINUS ARRHYTHMIA LOW QRS VOLTAGE IN PRECORDIAL LEADS [QRS DEFLECTION < 1.0 mV IN CHEST LEADS] Compared to ECG 02/23/2021 10:24:18 Low QRS voltage now present Electronically Signed On 02-23-2021 15:20:02 CDT by Dakota Gilmore M.D. [email or web address]
[2021-02-23] MEDS: amlodipine 5 mg Tablet PO (13:03)
[2021-02-23 13:04] LABS: Troponin 5 2HR 22.38 ng/L (0-10); Troponin 5 2HR Delta 2.38 ABS# (0-10)
[2021-02-23 13:24] VITALS: BP 182/90; PULSE 82; RESP 21; O2SAT 98
--- NOTE | 2021-02-23 13:25 | PC.NURSE ---
Pt sts she feels like her problem is in her R-lung. Pt appears to have quite a bit of anxiety. Pt updated on plan of care, comfort measures offered, daughter at bedside, no other immediate needs identified, will continue to monitor.
[2021-02-23 13:41] VITALS: BP 185/97; PULSE 80; RESP 18; O2SAT 97
--- NOTE | 2021-02-25 10:32 | DCPLANNER ---
betting agency manager had message to schedule a follow up appointment for patient with pulmonology for hemoptysis. betting agency manager called the [facility], spoke with Tiffany, gave clinic patients information. A followup appointment was scheduled for Saturday, February 27, 2021 at 3:[address] Suazo. betting agency manager called patient and informed patient of the scheduled appointment.
--- NOTE | 2021-03-28 17:05 | DCPLANNER ---
Patient had a follow up appointment scheduled for 02.25.21 with heart care - patient did attend appointment.
== END 2021-02-23 13:41 | disposition home or self-care (01) ==
PROVIDERS: Emergency Provider Family Medicine; PCP Electrodiagnostic Medicine
DX: J45.901 Unspecified asthma with (acute) exacerbation (principal); I10 Essential (primary) hypertension; E11.9 Type 2 diabetes mellitus without complications; R04.2 Hemoptysis; Z79.4 Long term (current) use of insulin; I25.10 Atherosclerotic heart disease of native coronary artery without angina pectoris; E78.5 Hyperlipidemia, unspecified; Z87.891 Personal history of nicotine dependence
CPT/HCPCS: 71045; 80053; 84484; 85025; 93005; 99283

== ENCOUNTER 2021-02-28 06:32 | Outpatient (CLI) | payer MEDICARE, OTHER, SELFPAY ==
[2021-02-28 07:37] LABS: Basophils % 0.5 %; Eosinophils # 0.2 10^3/uL (0.0-0.8); Eosinophils % 2.8 %; Hematocrit 36.2 % (37.0-47.0); Hemoglobin 11.8 g/dL (11.5-15.3); Lymphocytes # 1.9 10^3/uL (0.8-4.8); Lymphocytes % 30.5 %; Mean Corpuscular HGB Conc 32.6 g/dL (30.0-36.0); Mean Corpuscular Hemoglobin 30.5 pg (28.0-34.0); Mean Corpuscular Volume 93.5 fL (81-99); Mean Platelet Volume 10.9 fL (7.4-10.4); Monocytes # 0.6 10^3/uL (0.2-0.9); Monocytes % 9.7 %; Neutrophils # 3.57 10^3/uL (1.8-7.7); Neutrophils % 56.2 %; Nucleated Red Blood Cells % 0 %; Platelet Count 212 10^3/cmm (130-400); Red Blood Count 3.87 10^6/uL (4.1-5.3); Red Cell Distribution Width 12.1 % (12.1-15.1); White Blood Count 6.4 10^3/uL (4.0-10.0)
[2021-02-28 08:05] LABS: C Reactive Protein 6.8 mg/L (0.0-4.9)
[2021-02-28 08:35] LABS: Erythrocyte Sedimentation Rate 13 mm/hr (0-15)
[2021-03-01 11:22] LABS: Cyclic Citrullinated Peptide <16 UNITS
[2021-03-01 12:33] LABS: Anti-Double Strand DNA AB <1 IU/mL; Centromere B Antibody <1.0 NEG AI (<1.0 NEG); JO-1 Antibody <1.0 NEG AI (<1.0 NEG); SCL 70 <1.0 NEG AI (<1.0 NEG); SS A Ro Sjogrens Antibody <1.0 NEG AI (<1.0 NEG); SS-B/LA IGG <1.0 NEG AI (<1.0 NEG); Sm/RNP Antibody <1.0 NEG AI (<1.0 NEG)
[2021-03-01 16:28] LABS: Immunoglobulin E 11 kU/L (<OR=114)
[2021-03-04 22:58] LABS: Aspergillus Fumigatus, Igg Ab, 22.1 mg/L (<=102)
[2021-03-05 16:39] LABS: Alternaria Alternata (M6) Ige <0.10 kU/L; Alternaria Class 0; Bermuda Class 0; Bermuda Grass (G2) Ige <0.10 kU/L; Cat Dander (E1) Ige <0.10 kU/L; Cat Dander Class 0; Common Ragweed (Short) (W1) Ig <0.10 kU/L; D. Farinae Class 0; Dermatophagoides Class 0; Dermatophagoides Farinae (D2) <0.10 kU/L; Dermatophagoides Pteronyssinus <0.10 kU/L; Dog Dander (E5) Ige <0.10 kU/L; Dog Dander Class 0; Elm (T8) Ige <0.10 kU/L; Elm Class 0; English Plantain (W9) Ige <0.10 kU/L; English Plantain Class 0; House Dust (Greer) (H1) Ige <0.10 kU/L; House Dust (Hollister- Stier) <0.10 kU/L; House Dust Class 0; Immunoglobulin E 12 kU/L (<OR=114); Johnson Grass (G10) Ige <0.10 kU/L; Johnson Grass Cl 0; June Grass Class 0; June Grass(Kentucky Blue) (G8) <0.10 kU/L; Lamb'S Quarters (Goose Foot) <0.10 kU/L; Lamb'S Quarters Class 0; Maple (Box Elder) (T1) Ige <0.10 kU/L; Maple Class 0; Meadow Fescue (G4) Ige <0.10 kU/L; Meadow Fescue Class 0; Mucor Racemosus Class 0; Oak (T7) Ige <0.10 kU/L; Oak Class 0; Orchard Grass (Cocksfoot) (G3) <0.10 kU/L; Penicillium Class 0; Penicillium Notatum (M1) Ige <0.10 kU/L; Perennial Rye Grass (G5) Ige <0.10 kU/L; Perennial Rye Grass Class 0; Ragweeed Class 0; Rough Marsh Elder (W16) Ige <0.10 kU/L; Rough Marsh Elder Class 0; Sweet Vernal Class 0; Sweet Vernal Grass (G1) Ige <0.10 kU/L; Timothy Grass (G6) Ige <0.10 kU/L; Timothy Grass Class 0
== END 2021-02-28 06:33 | disposition home or self-care (01) ==
PROVIDERS: PCP Electrodiagnostic Medicine; Visit Provider Internal Medicine Pulmonary Disease
DX: J45.901 Unspecified asthma with (acute) exacerbation (principal); M06.9 Rheumatoid arthritis, unspecified; R06.02 Shortness of breath
CPT/HCPCS: 36415; 82785; 85025; 85651; 86003; 86140; 86225; 86235; 86431

== ENCOUNTER → 2021-03-13 08:15 | Outpatient (BNVA) | payer MEDICARE, OTHER, SELFPAY | PROVIDERS: PCP Electrodiagnostic Medicine; Visit Provider Internal Medicine Pulmonary Disease | DX: J45.21 Mild intermittent asthma with (acute) exacerbation (principal); Z20.822 Contact with and (suspected) exposure to COVID-19 | CPT/HCPCS: 87635 ==

== ENCOUNTER 2021-03-18 14:00 | Outpatient (CLI) | payer MEDICARE, OTHER, SELFPAY ==
--- NOTE | 2021-03-18 14:23 | PFTS_ITS ---
Date of Study:03/18/21 Date of Dictation: 03/22/2021 MECHANICS: Prebronchodilator forced vital capacity (FVC) is reduced Prebronchodilator forced expiratory volume in one second (FEV1) is moderately reduced 66% - 1.29 L FEV1/FVC is normal. No postbronchodilator study performed.. FLOW VOLUME LOOP: Normal.. LUNG VOLUMES: Total lung capacity (TLC) is low normal 82% . Residual volume (RV) is normal.. DIFFUSING CAPACITY FOR CARBON MONOXIDE: Mildly reduced 67% . INTERPRETATION: The pulmonary function tests are consistent with restrictive lung disease. There is moderate restriction on spirometry and mild restriction on lung volumes. Please mild gas transfer defect. Clinical correlation recommended. MTDD
== END 2021-03-18 14:01 | disposition home or self-care (01) ==
LOC: RT 14:06
PROVIDERS: PCP Electrodiagnostic Medicine; Visit Provider Internal Medicine Pulmonary Disease
DX: J45.901 Unspecified asthma with (acute) exacerbation (principal); M06.9 Rheumatoid arthritis, unspecified
CPT/HCPCS: 94010; 94726; 94729

== ENCOUNTER 2021-03-28 08:05 | Outpatient (CLI) | payer MEDICARE, OTHER, SELFPAY ==
--- NOTE | 2021-03-28 08:00 | CT_ITS ---
WS: [id number] CT CHEST CT-HIGH RESOLUTION, NONCONTRAST. HISTORY: Restrictive lung disease Technique: High-resolution chest CT is performed in inspiration, expiration, supine and prone positio nico. All CT scans at [facility] use at least one of these dose optimization techniques: automa doug exposure control; mA and/or kV adjustment per patient size (includes targeted exams where dose is matched to clinical indication); or iterative reconstruction. DLP: 893.44 mGycm COMPARISON: 05/27/2019 Findings: Mild pulmonary hyperinflation. Micronodule measuring 2.2 mm in the RIGHT middle lobe, was also present on 05/27/2019. There is mild thickening along the LEFT major fissure. No discrete mass or nodule. No honeycombing or bronchiectasis. There is volume loss with expiratory scan. There is no ev idence for significant air trapping or mosaic attenuation. No endobronchial lesions. No areas of atel ectasis along the dependent portions of the lungs. Bilateral enlarged substernal thyroid consistent with a goiter. No discrete nodules. Thyroid lobes ar e mildly heterogeneous. Scattered calcified plaque within the aorta with no aneurysm. There is significant coronary artery at herosclerosis involving the circumflex and LAD. Mild pericardial thickening. No mediastinal or hilar adenopathy. Small hiatal hernia. Prior cholecystectomy. Splenic artery calcifications. No adrenal mass. No osteoblastic or osteolytic bone disease. CT/CT chest wo con [id number] Impression: 1. Mild chronic emphysema. 2. No pneumonia, bronchiectasis or honeycombing. 3. No significant air trapping identified. 4. Significant multivessel coronary artery atherosclerosis. Consider follow-up with cardiology. 5. Prior cholecystectomy.
== END 2021-03-28 08:06 | disposition home or self-care (01) ==
PROVIDERS: PCP Electrodiagnostic Medicine; Visit Provider Internal Medicine Pulmonary Disease
DX: R06.02 Shortness of breath (principal); J43.9 Emphysema, unspecified; I25.10 Atherosclerotic heart disease of native coronary artery without angina pectoris
CPT/HCPCS: 71250

== ENCOUNTER 2021-05-06 06:58 | Emergency (ER) | payer OTHER, MEDICARE, SELFPAY ==
[2021-05-06 07:03] VITALS: BP 176/79; PULSE 83; RESP 16; TEMP 37; O2SAT 99; BMI 26.9
--- NOTE | 2021-05-06 07:18 | ED_ITS ---
HPI - Fall General: Chief Complaint: Fall Stated Complaint: Fall, Knee pain, Pain in ABD Time Seen by Provider: 05/06/21 07:13 History of Present Illness: HPI Narrative: Mrs. Hyatt tripped on a bed last night striking her right knee and also her left upper chest area and has pain both of the areas now she has pain with weightbearing and pain with deep inspiration. Did strike the anterior aspect of her skull. She does not presently taking blood thinners. Had no loss of consciousness no nausea or vomiting. complaint: fall Onset (ago): hour(s) Fall from: standing Fall witnessed: no Place fall occurred: home Loss of consciousness: None Prolonged down time: no Symptoms prior to fall: none Context: tripped/slipped Location of injury: chest Location of injury - extremities: Right: knee Severity: severe Severity scale (1-10): 9 Quality: aching Associated symptoms-after fall: Reports difficulty walking; Denies abdominal pain or chest pain Review of Systems Const: Denies: fever(s), chills or body aches Eyes: Denies: change in vision or blurry vision ENMT: Denies: throat pain or nasal congestion Card: Denies: chest pain or dyspnea on exertion Resp: Denies: dyspnea, productive cough or non-productive cough GI: Denies: abdominal pain, nausea or vomiting Musc: Reports: joint pain and other (Upper chest wall/rib pain); Denies: extremity pain Skin/Breast: Denies: rash Neuro: Reports: difficulty walking Psych: Denies: anxiety or depression Jose/Lymph: Denies: easy bruising PFSH ED PFSH: Medical History (Updated 05/06/21 @ 07:53 by MANAN Reveles) CAD (coronary artery disease) Diabetes Dyslipidemia HTN (hypertension) Ischemic cardiomyopathy Surgical History S/P appendectomy S/P cholecystectomy S/P hysterectomy Family History Other CAD (coronary artery disease) Cancer Diabetes Social History Smoking and tobacco status: never smoked Second hand smoke exposure: Yes Smoking risk assessment/counseling performed?: Yes Alcohol intake: never Lives independently: Yes Household members: none Marital status: Single Current occupational status: employed Pets and animals: No History of recent travel: No Current gender identity: Female Physical Exam Const: COMMON NORMALS: no acute distress, average body habitus and patient oriented x3 HENMT: COMMON NORMALS: normocephalic HEAD & SCALP: normal to inspection and normocephalic FACE & SINUS: normal facial exam Eye: COMMON NORMALS: conjunctivae normal GENERAL EYE: appearance normal, both eyes and all related structures CONJUNCTIVA: Yes conjunctivae normal Neck/C-Spine: COMMON NORMALS: no JVD Chest: CHEST: Yes localized rib tenderness with anteroposterior compression Location: 3rd rib (Left side upper part) Resp: COMMON NORMALS: normal respiratory effort and clear to auscultation bilaterally AUSCULTATION: clear to auscultation bilaterally Cardio: COMMON NORMALS: no JVD, regular rate and regular rhythm RATE: regular rate RHYTHM: regular rhythm GI: COMMON NORMALS: Normal to inspection, nondistended, normoactive bowel sounds present Extremity: RIGHT LOWER EXTREMITY: Yes knee joint (Tender with range of motion, abrasion lateral aspect, no swelling noted) Right knee: Yes neurovascular exam (Intact) Neuro: COMMON NORMALS: patient oriented x3 Skin: NARRATIVE SKIN EXAM: Abrasion lateral aspect right knee no swelling Course Vital Signs: Vital signs: Vital Signs Temperature 98.6 F 05/06/21 07:03 Pulse Rate 83 05/06/21 07:03 Respiratory Rate 16 05/06/21 07:03 Blood Pressure 176/79 05/06/21 07:03 Pulse Oximetry 99 05/06/21 07:03 MDM - Fall MDM Narrative: Medical decision making narrative: Radiology studies negative. Work comp form filled out. Patient follow-up work comp doctor. Ice crutches if needed medication prescribed. Discharge Plan Discharge Patient Disposition: Home Clinical Impression: Right knee sprain Qualifiers: Encounter type: initial encounter Involved ligament of knee: unspecified cruciate ligament Qualified Code(s): S83.501A - Sprain of unspecified cruciate ligament of right knee, initial encounter Contusion of rib on left side Qualifiers: Encounter type: initial encounter Qualified Code(s): S20.212A - Contusion of left front wall of thorax, initial encounter Fall Qualifiers: Encounter type: initial encounter Qualified Code(s): W19.XXXA - Unspecified fall, initial encounter Condition: Stable Prescriptions: New Celebrex 100 mg capsule 200 mg PO BID Qty: 20 RF: 0 No Action vitamin B complex [B Complex-Vitamin B12] 1 tab PO DAILY RF: 0 biotic silver aerosol inhalation RF: 0 coenzyme Q10 1 tab PO DAILY RF: 0 Levemir FlexTouch U-100 Insuln 100 unit/mL (3 mL) insulin pen 30 unit SUBCUT BID RF: 0 lisinopril 40 mg tablet 40 mg PO DAILY Qty: 90 RF: 2 carvedilol 12.5 mg tablet 12.5 mg PO BID Qty: 180 RF: 3 turmeric 400 mg Capsule 400 mg PO DAILY RF: 0 Discharge Orders: Discharge ED (Routine); Ordered 05/06/21 Ordered By: Jeffrey Weston Referrals: Charbel Glez DO [Primary Care Provider] - Discharge Diet: Usual diet Discharge Activity: Increase activity as tolerated Patient Instructions: Knee Sprain (ED), Contusion in Adults (ED) Activity Restrictions/Additional Instructions: Follow-up work comp doc as scheduled by your workplace. Can use crutches and/or knee brace if desired. No lifting over 15 pounds for the next week or 2 until seen by company doctor. Take medication as directed. Apply ice to areas as needed. Coding Level of Care Code ED Rubber Mill Tender for Filomena Fwkusum Exam Comprehensive
--- NOTE | 2021-05-06 07:18 | XR_ITS ---
WS: [id number] XR knee RT 3V* [id number] REASON FOR EXAM: fall, pain FINDINGS: No diffuse or focal bony abnormality. Moderate narrowing of the lateral knee joint space and mild narrowing of the medial knee joint space. No soft tissue abnormality. XR/XR knee RT 3V* [id number] IMPRESSION: No acute abnormality.
--- NOTE | 2021-05-06 07:18 | XR_ITS ---
WS: [id number] XR ribs LT mn 3V w CXR1V [id number] REASON FOR EXAM: pain from fall, left upper chest anterior FINDINGS: No focal bone lesion of the left ribs. No left rib fracture identified. Calcified granulomatous disease in both hemithoraces. No active pulmonary parenchymal pleural disease. Calcified coronary artery stent. Normal heart size XR/XR ribs LT mn 3V w CXR1V [id number] IMPRESSION: No acute abnormality.
[2021-05-06] MEDS: ketorolac 60 mg/2 mL INJ IM (08:09)
[2021-05-06 08:56] VITALS: BP 174/92; PULSE 76; RESP 16; O2SAT 98
== END 2021-05-06 08:22 | disposition home or self-care (01) ==
PROVIDERS: Emergency Provider Nurse Practitioner Family; PCP Electrodiagnostic Medicine
DX: S83.501A Sprain of unspecified cruciate ligament of right knee, initial encounter (principal); S20.212A Contusion of left front wall of thorax, initial encounter; I25.10 Atherosclerotic heart disease of native coronary artery without angina pectoris; E11.9 Type 2 diabetes mellitus without complications; E78.5 Hyperlipidemia, unspecified; I10 Essential (primary) hypertension; I25.5 Ischemic cardiomyopathy; W01.0XXA Fall on same level from slipping, tripping and stumbling without subsequent striking against object, initial encounter; Y92.009 Unspecified place in unspecified non-institutional (private) residence as the place of occurrence of the external cause
CPT/HCPCS: 71101; 73562; 96372; 99283; J1885

== ENCOUNTER 2021-12-09 11:29 | Emergency (ER) | payer MEDICARE, OTHER, SELFPAY ==
[2021-12-09 11:57] VITALS: BMI 26.2
[2021-12-09 12:05] VITALS: BP 214/119; PULSE 86; RESP 16; TEMP 36.6; O2SAT 97
--- NOTE | 2021-12-09 12:46 | PC.NURSE ---
SPOKE WITH PATIENT- 'LEFT LEG NERVE PAIN, HUGE BOOGER IN NOSE AND DR TOLD ME TO GO TO THE ER FOR AND XRAY' STATES BY PATIENT
--- NOTE | 2021-12-09 12:58 | W.ED.FALL ---
HPI - Fall General: Chief Complaint: Fall Stated Complaint: Fell a couple days ago coughing up blood Time Seen by Provider: 12/09/21 12:57 Source: patient Mode of arrival: ambulatory Limitations: no limitations History of Present Illness: 68-year-old female presents emergency room complaining of back and neck pain. 2 days ago she slipped as she was getting out of a truck landed on her back. She hit the back of her head as well. She has been having some epistaxis and has been spitting up some blood. She is not on any anticoagulants. She had COVID about 3 to 4 weeks ago is still having some nonpurulent sputum. She had nosebleeds prior to falling as well. She there is no loss conscious or not any vomiting. MD complaint: fall Onset (ago): day(s) (2) Fall from: standing Fall witnessed: yes, by family Place fall occurred: home Loss of consciousness: None Prolonged down time: no Symptoms prior to fall: none Context: tripped/slipped Location of injury: head, neck and back Associated symptoms-after fall: Reports headache(s), lightheadedness, neck pain and weakness; Denies abdominal pain, chest pain, confusion, difficulty walking, hematuria, numbness, short of breath or vertigo Review of Systems Const: Denies: fever(s), chills, body aches, change in appetite, fatigue or malaise ENMT: Denies: throat pain, ear or mastoid pain, nasal discharge or nasal congestion Card: Reports: lightheadedness; Denies: chest pain Resp: Denies: dyspnea, productive cough or non-productive cough GI: Denies: abdominal pain : Denies: hematuria Musc: Reports: neck pain Skin/Breast: Denies: rash or pruritus Neuro: Reports: headache(s); Denies: difficulty walking, vertigo or confusion PFSH ED PFSH: Medical History CAD (coronary artery disease) Diabetes Dyslipidemia HTN (hypertension) Ischemic cardiomyopathy Surgical History S/P appendectomy S/P cholecystectomy S/P hysterectomy Family History Other CAD (coronary artery disease) Cancer Diabetes Social History Smoking and tobacco status: former smoker Second hand smoke exposure: Yes Smoking risk assessment/counseling performed?: Yes Alcohol intake: never Lives independently: Yes Household members: none Marital status: Single Current occupational status: employed Pets and animals: No History of recent travel: No Current gender identity: Female Physical Exam Const: COMMON NORMALS: no acute distress GENERAL APPEARANCE: cooperative and comfortable ORIENTATION/CONSCIOUSNESS: Yes awake, Yes oriented to person, Yes oriented to place and Yes oriented to time HENMT: COMMON NORMALS: normocephalic, atraumatic and hearing grossly normal bilaterally HEAD & SCALP: normocephalic and atraumatic Neck/C-Spine: COMMON NORMALS: no JVD Resp: COMMON NORMALS: normal respiratory effort, No retractions, No use of accessory muscles and clear to auscultation bilaterally AUSCULTATION: clear to auscultation bilaterally Cardio: COMMON NORMALS: no JVD, regular rate, regular rhythm and No murmurs present (Cardio) RATE: regular rate RHYTHM: regular rhythm GI: COMMON NORMALS: Soft to palpation and No hepatosplenomegaly present AUSCULTATION: Yes normoactive bowel sounds PALPATION: Yes Soft to palpation, No Tenderness to palpation present (GI), No Guarding due to palpation present (GI) and Yes No hepatosplenomegaly present Extremity: COMMON NORMALS: normal to inspection, capillary refill normal, no clubbing, cyanosis or edema, no calf tenderness and no pedal edema Neuro: SENSORIUM/ORIENTATION: Yes oriented to person, Yes oriented to place and Yes oriented to time Skin: COMMON NORMALS: no rashes or lesions noted GENERAL SKIN EXAM: no rashes or lesions noted Course Vital Signs: Vital signs: Vital Signs Temperature 97.9 F 12/09/21 12:05 Pulse Rate 86 12/09/21 12:05 Respiratory Rate 16 12/09/21 12:05 Blood Pressure 214/119 12/09/21 12:05 Pulse Oximetry 95 12/09/21 15:05 MDM - Fall Medical Decision Making Labs and imaging reviewed. Admittedly patient prior has a concussion reviewed concussion with her as well as expected recovery imaging is unremarkable discharge patient home. At the time of signing off of the note,noted last blood pressure documented was markedly elevated we will have staff call patient and have her recheck her blood pressure primary care doctor. Medical Records I reviewed the patient's medical records. Lab Data I reviewed the patient's lab results. : 12/09/21 14:25 12/09/21 14:25 Radiology Impressions Cervical Spine X-Ray 12/09/21 13:07 IMPRESSION: No acute findings. Head CT 12/09/21 13:07 IMPRESSION: 1. No evidence of intracranial hemorrhage or mass effect. 2. Mild small vessel changes with moderate parenchymal volume loss. 3. No acute intracranial findings. Hip/Pelvis X-Ray 12/09/21 13:07 IMPRESSION: No acute findings. Chest X-Ray 12/09/21 13:08 IMPRESSION: No acute findings. Laboratory Results WBC 7.6 10^3/uL (4.0-10.0) 12/09/21 14:25 RBC 4.82 10^6/uL (4.1-5.3) 12/09/21 14:25 Hgb 14.2 g/dL (11.5-15.3) 12/09/21 14:25 Hct 43.3 % (37.0-47.0) 12/09/21 14:25 MCV 89.8 fl (81-99) 12/09/21 14:25 MCH 29.5 pg (28.0-34.0) 12/09/21 14:25 MCHC 32.8 g/dL (30.0-36.0) 12/09/21 14:25 RDW 11.9 % (12.1-15.1) L 12/09/21 14:25 Plt Count 200 10^3/cmm (130-400) 12/09/21 14:25 MPV 11.7 fL (7.4-10.4) H 12/09/21 14:25 Neut % (Auto) 62.4 % 12/09/21 14:25 Lymph % (Auto) 25.7 % 12/09/21 14:25 [place] % (Auto) 8.9 % 12/09/21 14:25 Eos % (Auto) 2.2 % 12/09/21 14:25 Baso % (Auto) 0.7 % 12/09/21 14:25 Neut # (Auto) 4.77 10^3/uL (1.8-7.7) 12/09/21 14:25 Lymph # (Auto) 2.0 10^3/uL (0.8-4.8) 12/09/21 14:25 [place] # (Auto) 0.7 10^3/uL (0.2-0.9) 12/09/21 14:25 Eos # (Auto) 0.2 10^3/uL (0.0-0.8) 12/09/21 14:25 Baso # (Auto) 0.1 10^3/uL (0.0-0.1) 12/09/21 14:25 Nucleated RBC % (auto) 0 % 12/09/21 14:25 Nucleated RBCs # 0.0 /100WBC 12/09/21 14:25 Sodium 137 mmol/L (136-145) 12/09/21 14:25 Potassium 3.7 mmol/L (3.5-5.1) 12/09/21 14:25 Chloride 98 mmol/L (98-107) 12/09/21 14:25 Carbon Dioxide 25 mmol/L (22-29) 12/09/21 14:25 Anion Gap 17.7 (5-19) 12/09/21 14:25 BUN 11 mg/dL (8-23) 12/09/21 14:25 Creatinine 0.7 mg/dL (0.5-0.9) 12/09/21 14:25 GFR Calculation Not Reportable 12/09/21 14:25 Glucose 377 mg/dL (65-115) H 12/09/21 14:25 Calculated Osmolality 299 mOsm/kg (285-295) H 12/09/21 14:25 Calcium 10.6 mg/dL (8.5-10.5) H 12/09/21 14:25 Total Bilirubin 0.4 mg/dL (0.15-1.2) 12/09/21 14:25 AST 20 U/L (0-32) 12/09/21 14:25 ALT 25 U/L (0-33) 12/09/21 14:25 Alkaline Phosphatase 121 IU/L (35-105) H 12/09/21 14:25 Total Protein 7.9 g/dL (6.6-8.7) 12/09/21 14:25 Albumin 4.6 g/dL (3.5-5.2) 12/09/21 14:25 Globulin 3.3 g/dL (1.3-4.6) 12/09/21 14:25 Discharge Plan Discharge Patient Disposition: Home Clinical Impression: Fall from stationary vehicle Condition: Stable Prescriptions: New diclofenac sodium 75 mg tablet,delayed release (DR/EC) 75 mg PO Q12H PRN (Reason: pain) Qty: 20 0RF No Action vitamin B complex [B Complex-Vitamin B12] 1 tab PO DAILY 0RF biotic silver aerosol inhalation 0RF coenzyme Q10 1 tab PO DAILY 0RF Levemir FlexTouch U-100 Insuln 100 unit/mL (3 mL) insulin pen 30 unit SUBCUT BID 0RF carvedilol 12.5 mg tablet 12.5 mg PO BID Qty: 180 3RF lisinopril 40 mg tablet 40 mg PO DAILY Qty: 90 2RF turmeric 400 mg Capsule 400 mg PO DAILY 0RF Discharge Orders: Discharge ED (Routine); Ordered 12/09/21 Ordered By: Kevin Paz Referrals: Charbel Glez DO [Primary Care Provider] - Discharge Diet: Usual diet Discharge Activity: Limit activity as instructed Patient Instructions: Opioid Safety Activity Restrictions/Additional Instructions: Follow-up with your primary care doctor as needed. Recommend swabbing nares with [id number] antibiotic ointment twice daily. 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
--- NOTE | 2021-12-09 13:07 | XRR_ITS ---
PROCEDURE INFORMATION: Exam: XR Left Hip Exam date and time: 12/09/2021 1:07 PM Age: 76 years old Clinical indication: Injury or trauma; Fall; Blunt trauma (contusions or hematomas); Left; Hip; Injury date: 12/07/21; Additional info: Pain after fall TECHNIQUE: Imaging protocol: XR Left hip. Views: 2 or 3 views hip with pelvis when performed. COMPARISON: CT abdomen pelvis w con* [id number] 05/17/2019 10:26 AM FINDINGS: Bones/joints: Unremarkable. No acute fracture. Soft tissues: Unremarkable. XR/XR hip LT 2-3V wo/w pel* [id number] IMPRESSION: No acute findings.
--- NOTE | 2021-12-09 13:07 | XRR_ITS ---
PROCEDURE INFORMATION: Exam: XR Cervical Spine Exam date and time: 12/09/2021 1:07 PM Age: 76 years old Clinical indication: Neck pain TECHNIQUE: Imaging protocol: XR of the cervical spine. Views: 2 or 3 views. COMPARISON: CR XR chest 1V portable [id number] 12/09/2021 1:18 PM FINDINGS: Bones/joints: Normal. No acute fracture. Normal alignment. Soft tissues: Unremarkable. XR/XR cervical spine 3V* [id number] IMPRESSION: No acute findings.
--- NOTE | 2021-12-09 13:07 | ECG_ITS ---
[facility] Test Date: 2021-12-09 Pat Name: Carmella Hyatt Department: Room: Gender: Female Photograph Enlarger: : 1945 Requested By: Kevin Hale Order Number: [id number] Aleisha MD: Dakota Gilmore M.D. Measurements Intervals [place] Rate: 81 P: 25 TX: 191 QRS: -4 QRSD: 83 T: 28 QT: 392 QTc: 457 Interpretive Statements SINUS RHYTHM VOLTAGE CRITERIA FOR LVH [MEETS CRITERIA IN ONE OF: R(aVL), S(V1), R(V5), R(V5/V6)+S(V1)] POSSIBLE SEPTAL MYOCARDIAL INFARCTION , PROBABLY OLD [30 ms Q WAVE IN V1/V2] Compared to ECG 02/23/2021 12:24:16 Left ventricular hypertrophy now present Myocardial infarct finding now present Sinus arrhythmia no longer present Electronically Signed On 12-09-2021 17:06:12 TECH WRITER by Dakota Gilmore M.D. [id number]
--- NOTE | 2021-12-09 13:07 | CT_ITS ---
WS: [id number] CT HEAD TECHNIQUE: Noncontrast CT of the head obtained from the skullbase to the vertex. CLINICAL INFORMATION: fall COMPARISON: CT 2017 DLP: 813.[address] scans at [facility] use at least one of these dose optimization techniques: automated e xposure control; mA and/or kV adjustment per patient size (includes targeted exams where dose is matc hed to clinical indication); or iterative reconstruction. FINDINGS: No evidence of intracranial hemorrhage or mass effect. Ventricular system and basal cisterns are chaves nt. Mild small vessel changes with moderate parenchymal volume loss. Chronic lacunar infarct RIGHT th alamus. No extra-axial fluid collections. No evidence of mass or mass effect. Paranasal sinuses and mastoid air cells are well aerated. .Normal visualized soft tissues. CT/CT head wo con* [id number] IMPRESSION: 1. No evidence of intracranial hemorrhage or mass effect. 2. Mild small vessel changes with moderate parenchymal volume loss. 3. No acute intracranial findings.
--- NOTE | 2021-12-09 13:08 | XRR_ITS ---
PROCEDURE INFORMATION: Exam: XR Chest Exam date and time: 12/09/2021 1:08 PM Age: 76 years old Clinical indication: Cough and dyspnea; Additional info: Dyspnea/cough TECHNIQUE: Imaging protocol: XR of the chest. Views: 1 view. COMPARISON: CR XR ribs LT mn 3V w CXR1V [id number] 05/06/2021 7:28 AM FINDINGS: Lungs: Unremarkable. No consolidation. Pleural spaces: Unremarkable. No pleural effusion. No pneumothorax. Heart/Mediastinum: Unremarkable. No cardiomegaly. Bones/joints: Unremarkable. XR/XR chest 1V portable [id number] IMPRESSION: No acute findings.
[2021-12-09 14:45] LABS: Basophils # 0.1 10^3/uL (0.0-0.1); Basophils % 0.7 %; Eosinophils # 0.2 10^3/uL (0.0-0.8); Eosinophils % 2.2 %; Hematocrit 43.3 % (37.0-47.0); Hemoglobin 14.2 g/dL (11.5-15.3); Lymphocytes % 25.7 %; Mean Corpuscular HGB Conc 32.8 g/dL (30.0-36.0); Mean Corpuscular Hemoglobin 29.5 pg (28.0-34.0); Mean Corpuscular Volume 89.8 fl (81-99); Mean Platelet Volume 11.7 fL (7.4-10.4); Monocytes # 0.7 10^3/uL (0.2-0.9); Monocytes % 8.9 %; Neutrophils # 4.77 10^3/uL (1.8-7.7); Neutrophils % 62.4 %; Nucleated Red Blood Cells % 0 %; Platelet Count 200 10^3/cmm (130-400); Red Blood Count 4.82 10^6/uL (4.1-5.3); Red Cell Distribution Width 11.9 % (12.1-15.1); White Blood Count 7.6 10^3/uL (4.0-10.0)
[2021-12-09 15:04] LABS: Alanine Aminotransferase 25 U/L (0-33); Albumin Level 4.6 g/dL (3.5-5.2); Alkaline Phosphatase 121 IU/L (35-105); Anion Gap 17.7 (5-19); Aspartate Amino Transferase 20 U/L (0-32); Blood Urea Nitrogen 11 mg/dL (8-23); Calcium 10.6 mg/dL (8.5-10.5); Carbon Dioxide 25 mmol/L (22-29); Chloride 98 mmol/L (98-107); Creatinine Clr Calc Pharmacy 53.3339; Globulin 3.3 g/dL (1.3-4.6); Glucose 377 mg/dL (65-115); Osmolality Calculated 299 mOsm/kg (285-295); Potassium 3.7 mmol/L (3.5-5.1); Sodium 137 mmol/L (136-145); Total Bilirubin 0.4 mg/dL (0.15-1.2); Total Protein 7.9 g/dL (6.6-8.7)
[2021-12-09 15:05] VITALS: O2SAT 95
--- NOTE | 2021-12-12 16:11 | PC.NURSE ---
notified to follow up with pcp for blood pressure
== END 2021-12-09 15:19 | disposition home or self-care (01) ==
PROVIDERS: Emergency Provider Family Medicine; PCP Electrodiagnostic Medicine
DX: M54.9 Dorsalgia, unspecified (principal); M54.2 Cervicalgia; W17.89XA Other fall from one level to another, initial encounter; I25.10 Atherosclerotic heart disease of native coronary artery without angina pectoris; E11.9 Type 2 diabetes mellitus without complications; E78.5 Hyperlipidemia, unspecified; I10 Essential (primary) hypertension; Z87.891 Personal history of nicotine dependence
CPT/HCPCS: 70450; 71045; 72040; 73502; 80053; 85025; 93005; 99283

== ENCOUNTER → 2022-03-27 08:24 | Outpatient (BNVA) | payer MEDICARE, OTHER, SELFPAY | PROVIDERS: PCP Electrodiagnostic Medicine; Visit Provider Family Medicine | DX: N39.0 Urinary tract infection, site not specified (principal) | CPT/HCPCS: 81003; 87077; 87086; 87184 ==

== ENCOUNTER → 2023-05-02 13:46 | Outpatient (BNVA) | payer MEDICARE, OTHER, SELFPAY | PROVIDERS: Visit Provider Nurse Practitioner Family | DX: R30.0 Dysuria (principal) | CPT/HCPCS: 81000 ==

== ENCOUNTER → 2023-05-12 14:54 | Outpatient (BNVA) | payer MEDICARE, OTHER, SELFPAY | PROVIDERS: Visit Provider Internal Medicine Cardiovascular Disease | DX: R06.09 Other forms of dyspnea (principal); I25.5 Ischemic cardiomyopathy; I25.10 Atherosclerotic heart disease of native coronary artery without angina pectoris; I10 Essential (primary) hypertension; E78.5 Hyperlipidemia, unspecified; R07.9 Chest pain, unspecified; E11.9 Type 2 diabetes mellitus without complications; Z79.4 Long term (current) use of insulin | CPT/HCPCS: 93005; 99214 ==

== ENCOUNTER → 2023-05-12 15:03 | Outpatient (BNVA) | payer MEDICARE, OTHER, SELFPAY | PROVIDERS: Visit Provider Internal Medicine Cardiovascular Disease | DX: R07.9 Chest pain, unspecified (principal) | CPT/HCPCS: 93005 ==

== ENCOUNTER 2023-05-15 19:50 | Emergency (ER) | payer MEDICARE, OTHER, SELFPAY ==
[2023-05-15 20:13] VITALS: BP 214/122; PULSE 81; RESP 18; TEMP 36.9; O2SAT 95; BMI 23.0
--- NOTE | 2023-05-15 20:14 | XRR_ITS ---
PROCEDURE INFORMATION: Exam: XR Chest Exam date and time: 05/15/2023 8:31 PM Age: 77 years old Clinical indication: Pain; Chest pressure; Additional info: Elevated BP, chf TECHNIQUE: Imaging protocol: Radiologic exam of the chest. Views: 1 view. COMPARISON: CR XR chest 2V* [id number] 03/31/2022 8:03 AM FINDINGS: Lungs: Visualized portions of the lungs are clear. Pleural spaces: Unremarkable. No pleural effusion. No pneumothorax. Heart/Mediastinum: Heart is mildly enlarged. Vasculature: There is atherosclerotic calcification of the aortic arch. Bones/joints: Unremarkable. XR/XR chest 1V portable [id number] IMPRESSION: Mild cardiomegaly. No acute infiltrate.
--- NOTE | 2023-05-15 20:35 | ED_ITS ---
HPI - Recheck/Abnormal Lab/Rx General: Chief Complaint: Recheck/Abnormal Lab/Rx Stated Complaint: high bp Time Seen by Provider: 05/15/23 20:14 History of Present Illness: 77-year-old female comes in today for complaints of elevated blood pressure. Patient been without her blood pressure medication for about 1 week while taking Bactrim DS. Patient came in tonight due to her blood pressure being high and concerns that she is having kidney dysfunction from the medication she was put on and also being without her blood pressure medicine. Patient appears nontoxic. Patient reports no chest pain or difficulty breathing. Patient does have a history of coronary artery disease and diabetes mellitus type 2. Review of Systems Const: Denies: fever(s) Card: Denies: chest pain Resp: Denies: dyspnea GI: Denies: nausea or vomiting : Reports: urinary frequency Musc: Denies: neck pain or back pain PFS ED PFSH: Medical History (Updated 05/15/23 @ 21:40 by MANAN Randall) CAD (coronary artery disease) Diabetes Dyslipidemia HTN (hypertension) Ischemic cardiomyopathy Surgical History S/P appendectomy S/P cholecystectomy S/P hysterectomy Family History Other CAD (coronary artery disease) Cancer Diabetes Social History Smoking and tobacco status: never smoked Second hand smoke exposure: Yes Smoking risk assessment/counseling performed?: Yes Alcohol intake: never Substance/Drug Use: never Lives independently: Yes Household members: none Marital status: Single Current occupational status: employed Pets and animals: No Do you think of yourself as: Straight/Heterosexual Current gender identity: Female Physical Exam Const: COMMON NORMALS: alert HENMT: COMMON NORMALS: normocephalic HEAD & SCALP: normocephalic MOUTH: Normal oral and palatal mucosa present Neck/C-Spine: COMMON NORMALS: full ROM Resp: COMMON NORMALS: normal respiratory effort and clear to auscultation bilaterally AUSCULTATION: clear to auscultation bilaterally Cardio: COMMON NORMALS: regular rate and regular rhythm RATE: regular rate RHYTHM: regular rhythm GI: COMMON NORMALS: Soft to palpation and non-tender PALPATION: Yes Soft to palpation Back/Pelvis: COMMON NORMALS: thoracic and lumbar spine normal to inspection Extremity: COMMON NORMALS: full ROM Neuro: SENSORIUM/ORIENTATION: Yes alert Skin: COMMON NORMALS: turgor normal GENERAL SKIN EXAM: turgor normal Course Vital Signs: Vital signs: Vital Signs Temperature 98.4 F 05/15/23 20:13 Pulse Rate 81 05/15/23 20:13 Respiratory Rate 18 05/15/23 20:44 Blood Pressure 214/122 05/15/23 20:13 Pulse Oximetry 95 05/15/23 20:13 Oxygen Delivery Me thod Room Air 05/15/23 20:13 MDM - Recheck/Abnormal Lab/Rx Medical Decision Making 77-year-old female comes in today for complaints of elevated blood pressure. On exam lungs were clear to auscultation. Heart rate was regular in the 80s. No focal neural deficits were noted. Abdomen soft nontender. Mild pedal edema was noted. Differential diagnosis includes but not limited to out of medication, renal dysfunction, CHF, ACS. CBC CMP was unremarkable. Patient did have some increased white blood cells and red blood cells in the urine with positive leukocytes esterase. We will go ahead and start patient on doxycycline 100 mg twice a day for 7 days for urinary tract infection. No cardiac stress was noted on labs. Chest x-ray was normal. Reviewed exam with patient with recommendations for treatment and follow-up. Patient reported understanding. Patient knows to return to the ER for worsening symptoms. Lab Data 05/15/23 20:30 05/15/23 20:30 Radiology Impressions Chest X-Ray 05/15/23 20:14 IMPRESSION: Mild cardiomegaly. No acute infiltrate. Laboratory Results WBC 6.9 10^3/uL (4.0-10.0) 05/15/23 20:30 RBC 4.61 10^6/uL (4.1-5.3) 05/15/23 20:30 Hgb 13.9 g/dL (11.5-15.3) 05/15/23 20:30 Hct 41.7 % (37.0-47.0) 05/15/23 20:30 MCV 90.5 fl (81-99) 05/15/23 20:30 MCH 30.2 pg (28.0-34.0) 05/15/23 20:30 MCHC 33.3 g/dL (30.0-36.0) 05/15/23 20: RDW 12.4 % (12.1-15.1) 05/15/23 20: Plt Count 258 10^3/cmm (130-400) 05/15/23 20:30 MPV 10.4 fL (7.4-10.4) 05/15/23 20: Neut % (Auto) 56.7 % 05/15/23 20: Lymph % (Auto) 31.8 % 05/15/23 20:30 [place] % (Auto) 6.8 % 05/15/23 20: Eos % (Auto) 3.7 % 05/15/23 20: Baso % (Auto) 0.9 % 05/15/23 20: Neut # (Auto) 3.93 10^3/uL (1.8-7.7) 05/15/23 20: Lymph # (Auto) 2.2 10^3/uL (0.8-4.8) 05/15/23 20: [place] # (Auto) 0.5 10^3/uL (0.2-0.9) 05/15/23 20: Eos # (Auto) 0.3 10^3/uL (0.0-0.8) 05/15/23 20: Baso # (Auto) 0.1 10^3/uL (0.0-0.1) 05/15/23 20: Nucleated RBC % (auto) 0 % 05/15/23 20: Nucleated RBCs # 0.0 /100WBC 05/15/23 20: Sodium 141 mmol/L (136-145) 05/15/23 20:30 Potassium 4.0 mmol/L (3.5-5.1) 05/15/23 20: Chloride 104 mmol/L (98-107) 05/15/23 20: Carbon Dioxide 28 mmol/L (22-29) 05/15/23 20:30 Anion Gap 13.0 (5-19) 05/15/23 20:30 BUN 17 mg/dL (8-23) 05/15/23 20:30 Creatinine 0.8 mg/dL (0.5-0.9) 05/15/23 20:30 GFR Calculation Not Reportable 05/15/23 20:30 Glucose 298 mg/dL (65-115) H 05/15/23 20:30 Calculated Osmolality 305 mOsm/kg (285-295) H 05/15/23 20:30 Calcium 10.1 mg/dL (8.5-10.5) 05/15/23 20:30 Total Bilirubin 0.4 mg/dL (0.15-1.2) 05/15/23 20:30 AST 19 U/L (0-32) 05/15/23 20:30 ALT 16 U/L (0-33) 05/15/23 20:30 Alkaline Phosphatase 78 U/L (35-105) 05/15/23 20:30 NT-Pro-B Natriuret Pep 393 pg/mL (0-450) 05/15/23 20:30 Total Protein 7.3 g/dL (6.6-8.7) 05/15/23 20:30 Albumin 4.4 g/dL (3.5-5.2) 05/15/23 20:30 Globulin 2.9 g/dL (1.3-4.6) 05/15/23 20:30 Urine Color Yellow (Yellow) 05/15/23 20:42 Urine Appearance Clear (CLEAR) 05/15/23 20:42 Urine pH 6.5 (5-7) 05/15/23 20:42 Ur Specific [place] 1.010 (1.005-1.030) 05/15/23 20:42 Urine Protein Neg (Negative) 05/15/23 20:42 Urine Glucose (UA) 4+ (Normal) H 05/15/23 20:42 Urine Ketones Negative (Negative) 05/15/23 20:42 Urine Blood 2+ (Negative) H 05/15/23 20:42 Urine Nitrate Negative (Negative) 05/15/23 20:42 Urine Bilirubin Neg (Negative) 05/15/23 20:42 Urine Urobilinogen Norm mg/dL (Negative) 05/15/23 20:42 Ur Leukocyte Esterase 2+ (Negative) H 05/15/23 20:42 Urine RBC 10-15 /hpf (0-2) H 05/15/23 20:42 Urine WBC 10-15 /hpf (0-5) H 05/15/23 20:42 Ur Squamous Epith Cells 0-4 /hpf (0-5) H 05/15/23 20:42 Amorphous Sediment Not Reportable 05/15/23 20:42 Urine Bacteria Trace /hpf (NONE) 05/15/23 20:42 Hyaline Casts 0-4 /lpf H 05/15/23 20:42 Urine Mucus Trace /hpf 05/15/23 20:42 Discharge Plan Discharge Patient Disposition: Home Clinical Impression: Urinary tract infection with hematuria Qualifiers: Urinary tract infection type: acute cystitis Qualified Code(s): N30.01 - Acute cystitis with hematuria HTN (hypertension) Qualifiers: Hypertension type: unspecified Qualified Code(s): I10 - Essential (primary) hypertension Condition: Stable Prescriptions: New doxycycline monohydrate 100 mg capsule 100 mg PO BID 7 Days Qty: 14 0RF No Action vitamin B complex [B Complex-Vitamin B12] 1 tab PO DAILY biotic silver aerosol inhalation PRN coenzyme Q10 1 tab PO DAILY Levemir FlexTouch U-100 Insuln 100 unit/mL (3 mL) insulin pen 40 unit SUBCUT BID lisinopril 40 mg tablet 40 mg PO DAILY Qty: 90 0RF turmeric 400 mg Capsule 400 mg PO DAILY Discharge Orders: Discharge ED (Routine); Ordered 05/15/23 Ordered By: Jose Romano Referrals: Charbel Glez DO [Primary Care Provider] - Discharge Diet: Usual diet Discharge Activity: Increase activity as tolerated Patient Instructions: Urinary Tract Infection in Women (ED) Activity Restrictions/Additional Instructions: Home and rest. Continue with routine medications as directed. Take doxycycline 100 mg twice a day for 7 days for urinary tract infection. Monitor blood pressure. Follow-up with primary care for continued complaints of elevated blood pressures or new concerns. Coding Level of Care Code ED County Director for Filomena Nguyen
[2023-05-15 20:44] VITALS: RESP 18
[2023-05-15 20:49] LABS: Basophils # 0.1 10^3/uL (0.0-0.1); Basophils % 0.9 %; Eosinophils # 0.3 10^3/uL (0.0-0.8); Eosinophils % 3.7 %; Hematocrit 41.7 % (37.0-47.0); Hemoglobin 13.9 g/dL (11.5-15.3); Lymphocytes # 2.2 10^3/uL (0.8-4.8); Lymphocytes % 31.8 %; Mean Corpuscular HGB Conc 33.3 g/dL (30.0-36.0); Mean Corpuscular Hemoglobin 30.2 pg (28.0-34.0); Mean Corpuscular Volume 90.5 fl (81-99); Mean Platelet Volume 10.4 fL (7.4-10.4); Monocytes # 0.5 10^3/uL (0.2-0.9); Monocytes % 6.8 %; Neutrophils # 3.93 10^3/uL (1.8-7.7); Neutrophils % 56.7 %; Nucleated Red Blood Cells % 0 %; Platelet Count 258 10^3/cmm (130-400); Red Blood Count 4.61 10^6/uL (4.1-5.3); Red Cell Distribution Width 12.4 % (12.1-15.1); White Blood Count 6.9 10^3/uL (4.0-10.0)
[2023-05-15 21:18] LABS: Protein Urine Neg (Negative); Urine Appearance Clear (CLEAR); Urine Color Yellow (Yellow); pH Urine 6.5 (5-7)
[2023-05-15 21:19] LABS: Add Urine Microscopic? YES; Bilirubin Urine Neg (Negative); Blood Urine 2+ (Negative); Glucose Urine UA 4+ (Normal); Ketones Urine Negative (Negative); Leukocyte Esterase Urine 2+ (Negative); Nitrate Urine Negative (Negative); Urobilinogen Urine Norm (Negative)
[2023-05-15 21:19] LABS: Alanine Aminotransferase 16 U/L (0-33); Albumin Level 4.4 g/dL (3.5-5.2); Alkaline Phosphatase 78 U/L (35-105); Aspartate Amino Transferase 19 U/L (0-32); Blood Urea Nitrogen 17 mg/dL (8-23); Calcium 10.1 mg/dL (8.5-10.5); Carbon Dioxide 28 mmol/L (22-29); Chloride 104 mmol/L (98-107); Creatinine Clr Calc Pharmacy 49.5337; Globulin 2.9 g/dL (1.3-4.6); Glucose 298 mg/dL (65-115); NT Pro B Type Natriuretic Pept 393 pg/mL (0-450); Osmolality Calculated 305 mOsm/kg (285-295); Sodium 141 mmol/L (136-145); Total Bilirubin 0.4 mg/dL (0.15-1.2); Total Protein 7.3 g/dL (6.6-8.7)
[2023-05-15 21:20] LABS: Bacteria Urine TRACE /hpf; Hyaline Casts Urine 0-4 /lpf; Mucus Urine TRACE /hpf; Squamous Epithelial Cell Urine 0-4 /hpf (0-5)
[2023-05-15 21:21] LABS: Add Urine Culture? Yes
[2023-05-15 21:40] LABS: Troponin(5th) Baseline 17 ng/L (0-10)
[2023-05-15] MEDS: doxycycline 100 mg Tablet PO (21:54)
[2023-05-15 21:57] VITALS: PULSE 81; RESP 16; O2SAT 98
== END 2023-05-15 21:56 | disposition home or self-care (01) ==
PROVIDERS: Emergency Provider Nurse Practitioner Family; PCP Electrodiagnostic Medicine
DX: I10 Essential (primary) hypertension (principal); N30.01 Acute cystitis with hematuria; Z79.4 Long term (current) use of insulin; Z77.22 Contact with and (suspected) exposure to environmental tobacco smoke (acute) (chronic); I25.10 Atherosclerotic heart disease of native coronary artery without angina pectoris; E11.9 Type 2 diabetes mellitus without complications; E78.5 Hyperlipidemia, unspecified
CPT/HCPCS: 36415; 71045; 80053; 81001; 83880; 84484; 85025; 87086; 99285

== ENCOUNTER 2023-05-20 05:41 | Outpatient (CLI) | payer MEDICARE, OTHER, SELFPAY ==
--- NOTE | 2023-05-20 06:15 | USCV_ITS ---
Olena Carmella Age: 77 Gender: F : 1945 Exam Date: 05/20/2023 06:02 Ordering Phys: Maite Stein MD ([email or web address]) Technologist: LEONELA Exam Location: [facility] [place] Indication: EVAL FOR CAROTID STENOSIS Risk Factors: Previous Vascular Surgery: Right Brachial BP: / Left Brachial BP: / Right Left Velocity (cm/s) Spectral Plaque Velocity (cm/s) Spectral Plaque Syst/Diast Broadening Syst/Diast Broadening 67.30/ 15.40 Prox CCA 83.30 / 17.00 73.90/ 18.70 Mid CCA 59.00 / 11.70 57.50/ 15.50 Distal CCA 55.90 / 16.30 55.20/ 21.00 Prox ICA 52.80 / 14.00 56.70/ 17.90 Mid ICA 59.00 / 19.40 66.70/ 23.80 Distal ICA 60.60 / 21.00 65.30 ECA 81.60 0.90 ICA/CCA 0.73 Antegrade Vertebral Antegrade 44.30/ 14.80 cm/s 33.40/ 10.10 cm/s Tri Subclavian Tri 101.4 84.90 0 CONCLUSIONS Right ICA stenosis <50%. Mild calcified atheromatous plaque right carotid bulb/ICA. Left ICA stenosis <50%. Mild calcified atheromatous plaque left carotid bulb/ICA. Intimal thickening in the common carotid arteries and internal carotid arteries bilaterally. Normal antegrade Doppler flow noted in the right vertebral artery. Normal antegrade Doppler flow noted in the left vertebral artery. Taj Henderson MD (Electronically Signed) Final Date: 20 May 2023 12:56 S
--- NOTE | 2023-05-20 06:45 | USCV_ITS ---
Carmella Hyatt Age: 77 Gender: F : 1945 Exam Date: 05/20/2023 06:18 Ordering Phys: Maite Stein MD ([email or web address]) Technologist: LEONELA Exam Location: [facility] [place] Indication: MAYES BP: 160 / 88 HR: 82 Rhythm: Sinus Technical Quality: Adequate MEASUREMENTS (Male / Female) Normal Values 2D ECHO LVOT Diameter 2.0 cm LV Ejection Fraction MOD 2C 56.3 % LV Ejection Fraction 2C AL 57.3 % LA Diameter 3.5 cm LA Width 3.5 cm LA Height 5.1 cm RA Width 2.5 cm RA Height 4.5 cm Aorta at Sinotubular Diameter 1.9 cm M-MODE Aortic Annulus Diameter 2.8 cm LA Ao Ratio MM 1.2 MV E Point Septal Separation 0.8 cm DOPPLER AV Peak Velocity 149.0 cm/s LVOT Peak Velocity 81.0 cm/s AV Area Cont Eq vti 1.8 cm squared AV Area Cont Eq pk 1.7 cm squared MV Peak Velocity 117.0 cm/s MV Area PHT 4.8 cm squared Mitral E to A Ratio 1.2 MV E' Velocity 65.0 cm/s Mitral E to MV E' Ratio 17.4 Mitral E to LV E' Lateral Ratio 14.5 Mitral E to LV E' Septal Ratio 21.7 TR Peak Velocity 167.1 cm/s TR Peak Gradient 11.2 mmHg TR Mean Velocity 135.9 cm/s TR Mean Gradient 7.8 mmHg TR Velocity Time Integral 51.0 cm TV Peak E Velocity 36.0 cm/s Right Atrial Pressure 8.0 mmHg Pulmonary Artery Systolic Pressu 19.2 mmHg PV Peak Velocity 78.0 cm/s RV Acceleration Time 0.2 s RV Ejection Time 0.3 s RV AcT/ET 0.5 FINDINGS Left Ventricle Normal left ventricular size, systolic function and wall thickness, with no regional wall motion abnormalities. Left ventricular ejection fraction is estimated at 60-65 %. Grade II diastolic dysfunction, moderately elevated filling pressures. Right Ventricle Normal right ventricular size and systolic function. Right ventricular systolic pressure 19.2 mmHg. Right Atrium Normal right atrial size. Left Atrium Moderately increased left atrial size. Mitral Valve Moderate mitral annular calcification. Thickened mitral valve. No mitral valve stenosis. Moderate mitral valve regurgitation. Aortic Valve Probably trileaflet aortic valve. No aortic valve stenosis. No aortic valve regurgitation. Tricuspid Valve Structurally normal tricuspid valve. No tricuspid valve stenosis. Mild tricuspid valve regurgitation. Pulmonic Valve Pulmonic valve not well visualized. No pulmonary valve stenosis. Trace pulmonary valve regurgitation. Pericardium Trivial pericardial effusion. Aorta Normal size aortic root and proximal ascending aorta. IVC Normal IVC dimension with >50% respiratory change of the inferior vena cava. CONCLUSIONS 1. Normal left ventricular size, systolic function and wall thickness, with no regional wall motion abnormalities. Left ventricular ejection fraction is estimated at 60-65 %. Grade II diastolic dysfunction, moderately elevated filling pressures. 2. Moderate mitral valve regurgitation. 3. Compared to study dated 12/12/2015, left ventricular systolic function has improved and mitral regurgitation is moderate now. Maite Stein MD (Electronically Signed) Final Date: 25 May 2023 12:47 S
== END 2023-05-20 05:42 | disposition home or self-care (01) ==
PROVIDERS: PCP Electrodiagnostic Medicine; Visit Provider Internal Medicine Cardiovascular Disease
DX: I65.23 Occlusion and stenosis of bilateral carotid arteries (principal); I25.5 Ischemic cardiomyopathy; R01.1 Cardiac murmur, unspecified; R06.09 Other forms of dyspnea; I34.0 Nonrheumatic mitral (valve) insufficiency; I51.89 Other ill-defined heart diseases
CPT/HCPCS: 93306; 93880

== ENCOUNTER → 2023-06-09 12:36 | Outpatient (BNVA) | payer MEDICARE, OTHER, SELFPAY | PROVIDERS: PCP Electrodiagnostic Medicine; Visit Provider Nurse Practitioner Family | DX: I25.10 Atherosclerotic heart disease of native coronary artery without angina pectoris (principal); I10 Essential (primary) hypertension | CPT/HCPCS: 99214 ==

== ENCOUNTER → 2023-12-28 09:35 | Outpatient (BNVA) | payer MEDICARE, OTHER, SELFPAY | PROVIDERS: PCP Electrodiagnostic Medicine; Visit Provider Nurse Practitioner Family | DX: I10 Essential (primary) hypertension (principal); I25.10 Atherosclerotic heart disease of native coronary artery without angina pectoris; I25.5 Ischemic cardiomyopathy | CPT/HCPCS: 99214 ==

== ENCOUNTER 2024-01-16 11:07 | Emergency (ER) | payer MEDICARE, OTHER, SELFPAY ==
[2024-01-16 11:19] VITALS: BP 201/112; PULSE 86; RESP 16; TEMP 36.3; O2SAT 100; BMI 25.0
--- NOTE | 2024-01-16 11:20 | XRR_ITS ---
PROCEDURE INFORMATION: Exam: XR Chest Exam date and time: 01/16/2024 11:31 AM Age: 78 years old Clinical indication: Cough and dyspnea; Additional info: Dyspnea/cough TECHNIQUE: Imaging protocol: Radiologic exam of the chest. Views: 1 view. COMPARISON: CR XR chest 1V portable [id number] 05/15/2023 8:31 PM FINDINGS: Lungs: Unremarkable. No consolidation or mass. Pleural spaces: Unremarkable. No pleural effusion. No pneumothorax. Heart/Mediastinum: Unremarkable. No cardiomegaly. Bones/joints: Unremarkable. XR/XR chest 1V portable [id number] IMPRESSION: No acute findings.
--- NOTE | 2024-01-16 11:42 | ECG_ITS ---
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 Measurements Intervals [place] Rate: 77 P: 69 MD: 203 QRS: -2 QRSD: 94 T: 43 QT: 388 QTc: 440 Interpretive Statements SINUS RHYTHM MODERATE VOLTAGE CRITERIA FOR LVH, CONSIDER NORMAL VARIANT [MEETS CRITERIA IN ONE OF: R(aVL), S(V1), R(V5), R(V5/V6)+S(V1)] POSSIBLE ANTERIOR MYOCARDIAL INFARCTION , PROBABLY OLD [30 ms Q WAVE IN V3/V4, OR R < 0.2 mV IN V4] Compared to ECG 05/12/2023 15:06:54 Myocardial infarct finding now present Sinus arrhythmia no longer present Electronically Signed On 01-17-2024 11:10:24 CDT by Milton Diaz M.D. [email or web address]
--- NOTE | 2024-01-16 11:50 | ED_ITS ---
HPI - General Adult 2 General: Chief complaint: General Medical Stated complaint: high bp, leg pains, headache Time Seen by Provider: 01/16/24 11:18 History of Present Illness: 78-year-old female presents emergency de partment complaints of elevated blood pressure. She states she was recently been seen by her primary care provider on 12/28/2023. Patient is a diabetic and has a history of hypertension, hypercholesterolemia and peripheral neuropathy. She presents today with complaints of a mild 4 out of 10 throbbing headache and elevated uncontrolled blood pressure over 200. She has been keeping a blood pressure log and her systolic blood pressure on average since 12/28/23 has been in the low to mid 170s. She denies chest pain dizziness lightheaded feeling. She states she does have intermittent muscle cramps to her bilateral lower extremities. She states that she feels that she is able to ambulate without much difficulty but after an extended period of time ambulating she feels that her muscles cramp. She states she also has taken herself off of her prescribed lisinopril because she received a pamphlet in the mail from Sami Coello listing the potential side effects. Associated symptoms: Reports headache(s) Review of Systems 2 General: Reports: 10 or more systems reviewed and unremarkable except in HPI and below Musc: Reports: muscle cramps Neuro: Reports: headache(s) PFSH ED 2 PFSH: Medical History Ischemic cardiomyopathy 05/20/2023: LVEF 60 to 65%, grade 2 diastolic dysfunction CAD (coronary artery disease) Diabetes Dyslipidemia HTN (hypertension) Surgical History S/P cholecystectomy S/P appendectomy S/P hysterectomy Family History Other CAD (coronary artery disease) Cancer Diabetes Social History Smoking and tobacco/nicotine status: never used tobacco/nicotine Second hand smoke exposure: Yes Alcohol intake: never Substance/Drug Use: never Lives independently: Yes Household members: none Marital status: Single Current occupational status: employed Pets and animals: No Do you think of yourself as: Straight/Heterosexual Current gender identity: Female Physical Exam 2 Narrative: EXAM NARRATIVE: Constitutional: the patient appears well nourished and with normal development. Vital signs reviewed as documented. No acute distress, HENMT: Normocephalic, atraumatic. External ears normal appearance without drainage. Nose without drainage, normal appearance. Mucus membranes moist. Neck is supple, No jugular venous distension, trachea is midline, no appreciable carotid bruits. No lymphadenopathy. No meningeal signs. Flexion, extension and lateral rotation is without pain. Eyes: Pupils are equal, round, reactive to light and accommodation. No scleral icterus. Extra-ocular movement are intact. Thorax is symmetrical and with equal rise and fall with respirations. Resp: Lungs are clear to auscultation. No wheezes, rales, crackles or ronchi at present. Cardio: Regular rate and rhythm. Positive S1, S2. No appreciable murmurs, rubs or gallops. GI: Abdominal exam reveals normal bowel sounds to all quadrants. No organomegaly. No obvious palpable masses noted. No hepatomegally appreciated. Soft, non-tender to palpation. Extremity: Extremities are non-edematous and both femoral and pedal pulses are 2+ and equal bilaterally. Moves all extremities well, sensation in all extremities. Neuro: Alert and oriented x4, person, place, time and situation. Cranial nerves II through XII are grossly intact, there is no focal neurological deficits that I can appreciate at present. Sensation intact to all extremities. 2-point discrimination intact. Light touch intact to all extremities. Motor strength in the upper and lower extremities are equal and bilateral 5/5. Psych: Cooperative, calm, normal thought process, appropriate judgment. Skin: No lesions, rashes. No gross abnormalities noted. Back: Symmetrical, no obvious deformity, No CVA tenderness Course 2 Vital Signs: Vital signs: Vital Signs Temperature 97.4 F L 01/16/24 11:19 Pulse Rate 90 01/16/24 13:12 Respiratory Rate 16 01/16/24 13:12 Blood Pressure 162/76 01/16/24 13:12 Pulse Oximetry 100 01/16/24 13:12 Oxygen Delivery Me thod Room Air 01/16/24 13:12 MDM - General Adult Medical Decision Making Physical exam completed and documented I did obtain a CBC and a CMP as well as a proBNP and urinalysis as well as a chest x-ray and EKG which were essentially normal. I did have an extensive discussion with the patient and her family member at the patient's request and answered multiple questions regarding the patient's medication and the importance of continuing to take her lisinopril and maintain her blood glucose control. Patient also had several questions about gross hematuria and microscopic hematuria as she states she has had multiple urinary tract infections in the past and she also has several family members with bladder cancer and states that she did smoke cigarettes in the past but does not currently and is concerned that she may be at increased risk for bladder cancer given her recurrent hematuria. I did provide the patient the contact information for both [facility] as well as [facility] so she could follow-up with them and discuss that with her primary care provider. Patient also received hydralazine intravenously and had significant improvement of control her blood pressure to 162/76. I also advised the patient regarding taking supplemental magnesium to help her muscle cramps as well as the importance of follow-up and discussion with her primary care provider and potential referral for cardiology for intermittent claudication given the patient's intermittent cramping. Differential Diagnosis Medication noncompliance, polypharmacy, acute renal insufficiency, uncontrolled hypertension, tension/stress headache, hypomagnesemia, intermittent claudication, transitional cell carcinoma of the bladder, urinary tract infection Medical Records I reviewed the patient's medical records. Lab Data I reviewed the patient's lab results. 01/16/24 12:08 01/16/24 12:08 Radiology Impressions Chest X-Ray 01/16/24 11:20 IMPRESSION: No acute findings. Laboratory Results WBC 5.19 10^3/uL (3.29-11.43) 01/16/24 12:08 RBC 4.69 10^6/uL (3.85-5.65) 01/16/24 12:08 Hgb 14.10 g/dL (11.27-16.99) 01/16/24 12:08 Hct 42.9 % (36-47) 01/16/24 12:08 MCV 91.5 fl (85-98) 01/16/24 12:08 MCH 30.1 pg (27-33) 01/16/24 12:08 MCHC 32.9 g/dL (30-55) 01/16/24 12:08 RDW 12.1 % (12.1-15.1) 01/16/24 12:08 Plt Count 240 10^3/cmm (157-399) 01/16/24 12:08 MPV 10.6 fL (7.4-10.4) H 01/16/24 12:08 Neut % (Auto) 53.8 % 01/16/24 12:08 Lymph % (Auto) 36.2 % 01/16/24 12:08 Stone % (Auto) 7.5 % 01/16/24 12:08 Eos % (Auto) 1.5 % 01/16/24 12:08 Baso % (Auto) 0.8 % 01/16/24 12:08 Neut # (Auto) 2.79 10^3/uL (1.8-7.7) 01/16/24 12:08 Lymph # (Auto) 1.9 10^3/uL (0.8-4.8) 01/16/24 12:08 Stone # (Auto) 0.4 10^3/uL (0.2-0.9) 01/16/24 12:08 Eos # (Auto) 0.1 10^3/uL (0.0-0.8) 01/16/24 12:08 Baso # (Auto) 0.0 10^3/uL (0.0-0.1) 01/16/24 12:08 Nucleated RBC % (auto) 0 % 01/16/24 12:08 Nucleated RBCs # 0.0 /100WBC 01/16/24 12:08 Sodium 139 mmol/L (136-145) 01/16/24 12:08 Potassium 3.9 mmol/L (3.5-5.1) 01/16/24 12:08 Chloride 103 mmol/L (98-107) 01/16/24 12:08 Carbon Dioxide 26 mmol/L (22-29) 01/16/24 12:08 Anion Gap 13.9 (5-19) 01/16/24 12:08 BUN 12 mg/dL (8-23) 01/16/24 12:08 Creatinine 0.7 mg/dL (0.5-0.9) 01/16/24 12:08 GFR Calculation Not Reportable 01/16/24 12:08 Glucose 135 mg/dL (65-115) H 01/16/24 12:08 Calculated Osmolality 290 mOsm/kg (285-295) 01/16/24 12:08 Calcium 10.5 mg/dL (8.5-10.5) 01/16/24 12:08 Magnesium 2.0 mg/dL (1.7-2.3) 01/16/24 12:08 Total Bilirubin 0.6 mg/dL (0.15-1.2) 01/16/24 12:08 AST 20 U/L (0-32) 01/16/24 12:08 ALT 22 U/L (0-33) 01/16/24 12:08 Alkaline Phosphatase 86 U/L (35-105) 01/16/24 12:08 NT-Pro-B Natriuret Pep 268 pg/mL (0-450) 01/16/24 12:08 Total Protein 7.9 g/dL (6.6-8.7) 01/16/24 12:08 Albumin 4.4 g/dL (3.5-5.2) 01/16/24 12:08 Globulin 3.5 g/dL (1.3-4.6) 01/16/24 12:08 Urine Color Straw (Yellow) 01/16/24 11:49 Urine Appearance Clear (CLEAR) 01/16/24 11:49 Urine pH 5 (5-7) 01/16/24 11:49 Ur Specific [place] 1.015 (1.005-1.030) 01/16/24 11:49 Urine Protein Neg (Negative) 01/16/24 11:49 Urine Glucose (UA) 4+ (Normal) H 01/16/24 11:49 Urine Ketones Negative (Negative) 01/16/24 11:49 Urine Blood Neg (Negative) 01/16/24 11:49 Urine Nitrate Negative (Negative) 01/16/24 11:49 Urine Bilirubin Neg (Negative) 01/16/24 11:49 Urine Urobilinogen Norm mg/dL (Negative) 01/16/24 11:49 Ur Leukocyte Esterase Negative (Negative) 01/16/24 11:49 All radiology interpretation(s) finalized by discharge EKG Data EKG 1: Interpretation: 12-lead EKG obtained at 1142 and reviewed at 1145 demonstrates underlying sinus rhythm with a first-degree AV block, ventricular rate of 77 bpm, CO interval 203, QRS duration 94, QT 388, QTc [address] elevation or depression at present to demonstrate acute ischemia or infarction. Computer generated interpretation: Chest X-Ray 01/16/24 11:20 IMPRESSION: No acute findings. Discharge Plan Discharge Patient Disposition: Home Clinical Impression: Hypertension, uncontrolled, Noncompliance with medication regimen Condition: Stable Prescriptions: No Action biotic silver aerosol See Rx Instructions .ROUTE .COMPLEX PRN (Reason: Shortness Of Breath Or Wheezing) Rx Instructions: as directed inhaled as needed Levemir FlexTouch U100 Insulin 100 unit/mL (3 mL) insulin pen 40 unit SUBCUT BID carvedilol [Coreg] 12.5 mg tablet 12.5 mg PO BID Rx Instructions: must administer with a meal/food lisinopril 40 mg tablet 40 mg PO DAILY Qty: 90 3RF turmeric 400 mg Capsule 400 mg PO DAILY vitamin B complex Tablet 1 tab PO DAILY CoQ-10 100 mg Capsule 100 mg PO DAILY Discharge Orders: Discharge ED (Routine); Ordered 01/16/24 Ordered By: Andrea Pedroza Referrals: Charbel Glez DO [Primary Care Provider] - Discharge Diet: Diabetic and Low Salt Discharge Activity: Resume usual activity Patient Instructions: Opioid Safety, Pain Management Activity Restrictions/Additional Instructions: Activity Restrictions/Additional Instructions: Thank you for choosing [facility] for your healthcare needs today. Please realize that you were seen in the Emergency Department and that we are providing you with an emergency medical screening exam and this may not be a complete and all inclusive of all the testing and or medical work-up that you may need to determine your ailment or severity of your illness. It is very important that you follow-up as instructed with your Primary care provider or Specialist for additional evaluation and to discuss your medical treatment plan. You may return to the Emergency Department should you have concerns or if your condition changes or worsens in any way. Call to make a Follow-up appointment: 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
[2024-01-16 12:15] LABS: Basophils % 0.8 %; Eosinophils # 0.1 10^3/uL (0.0-0.8); Eosinophils % 1.5 %; Hematocrit 42.9 % (36-47); Lymphocytes # 1.9 10^3/uL (0.8-4.8); Lymphocytes % 36.2 %; Mean Corpuscular HGB Conc 32.9 g/dL (30-55); Mean Corpuscular Hemoglobin 30.1 pg (27-33); Mean Corpuscular Volume 91.5 fl (85-98); Mean Platelet Volume 10.6 fL (7.4-10.4); Monocytes # 0.4 10^3/uL (0.2-0.9); Monocytes % 7.5 %; Neutrophils # 2.79 10^3/uL (1.8-7.7); Neutrophils % 53.8 %; Nucleated Red Blood Cells % 0 %; Platelet Count 240 10^3/cmm (157-399); Red Blood Count 4.69 10^6/uL (3.85-5.65); Red Cell Distribution Width 12.1 % (12.1-15.1); White Blood Count 5.19 10^3/uL (3.29-11.43)
[2024-01-16 12:33] VITALS: BP 194/92
[2024-01-16] MEDS: hyDRALAzine 20 mg/mL INJ 1 mL IVP (12:33)
[2024-01-16 12:42] LABS: Alanine Aminotransferase 22 U/L (0-33); Albumin Level 4.4 g/dL (3.5-5.2); Alkaline Phosphatase 86 U/L (35-105); Anion Gap 13.9 (5-19); Aspartate Amino Transferase 20 U/L (0-32); Blood Urea Nitrogen 12 mg/dL (8-23); Calcium 10.5 mg/dL (8.5-10.5); Carbon Dioxide 26 mmol/L (22-29); Chloride 103 mmol/L (98-107); Creatinine Clr Calc Pharmacy 50.4889; Globulin 3.5 g/dL (1.3-4.6); Glucose 135 mg/dL (65-115); NT Pro B Type Natriuretic Pept 268 pg/mL (0-450); Osmolality Calculated 290 mOsm/kg (285-295); Potassium 3.9 mmol/L (3.5-5.1); Sodium 139 mmol/L (136-145); Total Bilirubin 0.6 mg/dL (0.15-1.2); Total Protein 7.9 g/dL (6.6-8.7)
[2024-01-16 13:00] LABS: Add Urine Microscopic? NO; Charge for UA Resulting for Rev
[2024-01-16 13:12] VITALS: BP 162/76; PULSE 90; RESP 16; O2SAT 100
[2024-01-16 13:28] LABS: Glucose Urine UA 4+ (Normal); Protein Urine Neg (Negative); Specific Gravity, Urine 1.015 (1.005-1.030); Urine Appearance Clear (CLEAR); Urine Color Straw (Yellow); pH Urine 5 (5-7)
[2024-01-16 13:29] LABS: Bilirubin Urine Neg (Negative); Blood Urine Neg (Negative); Ketones Urine Negative (Negative); Leukocyte Esterase Urine Negative (Negative); Nitrate Urine Negative (Negative); Urobilinogen Urine Norm (Negative)
[2024-01-16 14:05] VITALS: BP 175/77; PULSE 86; RESP 18; TEMP 36.3; O2SAT 99
== END 2024-01-16 14:06 | disposition home or self-care (01) ==
PROVIDERS: Family Medicine; Emergency Provider Internal Medicine; PCP Electrodiagnostic Medicine
DX: I10 Essential (primary) hypertension (principal); I25.5 Ischemic cardiomyopathy; Z91.148 Patient's other noncompliance with medication regimen for other reason; Z79.4 Long term (current) use of insulin; Z77.22 Contact with and (suspected) exposure to environmental tobacco smoke (acute) (chronic); I25.10 Atherosclerotic heart disease of native coronary artery without angina pectoris; E11.9 Type 2 diabetes mellitus without complications; E78.5 Hyperlipidemia, unspecified
CPT/HCPCS: 71045; 80053; 81003; 83735; 83880; 85025; 93005; 96374; 99285; J0360

== ENCOUNTER 2024-03-02 09:11 | Outpatient (CLI) | payer MEDICARE, OTHER, SELFPAY ==
--- NOTE | 2024-03-02 09:15 | USCV_ITS ---
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 Normal resting ABIs bilaterally, suggesting no significant arterial obstruction in the major vessels of the lower extremities 2. 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 Abnormal resting TBIs bilaterally, suggesting mild disease in these vessels. Compared to the study from 03/20/2020, the occlusion of the posterior tibial arteries appear to be new Dr Dakota Gilmore MD [facility] (Electronically Signed) Final Date: 02 Mar 2024 23:58 S
== END 2024-03-02 09:12 | disposition home or self-care (01) ==
LOC: RAD 09:11
PROVIDERS: PCP Electrodiagnostic Medicine; Visit Provider Electrodiagnostic Medicine
DX: I73.9 Peripheral vascular disease, unspecified (principal)
CPT/HCPCS: 93922

== ENCOUNTER → 2024-03-04 08:29 | Outpatient (BNVA) | payer MEDICARE, OTHER, SELFPAY | PROVIDERS: PCP Electrodiagnostic Medicine; Visit Provider Nurse Practitioner Family | DX: I10 Essential (primary) hypertension (principal); I25.10 Atherosclerotic heart disease of native coronary artery without angina pectoris; I25.5 Ischemic cardiomyopathy; E11.51 Type 2 diabetes mellitus with diabetic peripheral angiopathy without gangrene | CPT/HCPCS: 99214 ==

== ENCOUNTER → 2024-04-06 11:15 | Outpatient (BNVA) | payer MEDICARE, OTHER, SELFPAY | PROVIDERS: PCP Electrodiagnostic Medicine; Visit Provider Nurse Practitioner Family | DX: I10 Essential (primary) hypertension (principal); I25.10 Atherosclerotic heart disease of native coronary artery without angina pectoris | CPT/HCPCS: 99214 ==

== ENCOUNTER 2024-06-30 07:53 | Emergency (ER) | payer MEDICARE, OTHER, SELFPAY ==
[2024-06-30] VITALS (39 sets, daily range): BP systolic 144–190; BP diastolic 72–112; PULSE 58–85; RESP 15–31; TEMP 36.7; O2SAT 90–99; BMI 26.9
--- NOTE | 2024-06-30 08:36 | CT_ITS ---
WS: [id number] CT ABDOMEN AND PELVIS NONCONTRAST HISTORY: flank pain TECHNIQUE: Imaging performed through the abdomen and pelvis. Coronal and sagittal reformats are submi tted. All CT scans at [facility] use at least one of these dose optimization techniques: auto mated exposure control; mA and/or kV adjustment per patient size (includes targeted exams where dose is matched to clinical indication); or iterative reconstruction. DLP: 512.03 mGy.cm COMPARISON: 05/17/2019 Lower thorax: Small hiatal hernia. Otherwise negative. Liver: Normal size liver. No mass or bile duct dilatation. Gallbladder: Prior cholecystectomy. Pancreatic atrophy and fatty replacement. Pancreas: Normal size and attenuation. Normal pancreatic duct. No pancreatitis or mass. Spleen: Normal. Adrenal glands: Normal. No mass. Right kidney: Normal size RIGHT kidney. No significant perinephric stranding. The RIGHT ureter is not dilated. There is a 2 mm calcification in the very distal RIGHT ureter. Left kidney: Lobulated cystic mass upper pole RIGHT renal pelvis measuring 1.9 x 2.5 cm. Parapelvic c yst has been previously described in this location and it has slightly increased in size. Normal LEFT ureter. Aorta: Mild atherosclerosis abdominal aorta with no aneurysm. No free fluid, intraperitoneal air or significant lymphadenopathy. GI tract: Nondistended stomach. No small bowel obstruction. Moderate fecal retention and constipation . Moderate diverticular burden without acute diverticulitis. No appendicitis. Abdominal wall: Negative. No hernia. Pelvis: Prior hysterectomy. Negative urinary bladder. Osseous structures: Unremarkable. CT/CT abdomen pelvis wo con [id number] IMPRESSION: 1. Distal RIGHT ureteral 2 mm calcification without obstruction. 2. Stable parapelvic cyst LEFT kidney. 3. No ascites or adenopathy. 4. Prior cholecystectomy and hysterectomy. 5. Moderate diffuse constipation. 6. Distal colonic diverticulosis.
--- NOTE | 2024-06-30 08:38 | ECG_ITS ---
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 Measurements Intervals [place] Rate: 56 P: 84 DC: 189 QRS: 6 QRSD: 81 T: 44 QT: 441 QTc: 427 Interpretive Statements SINUS BRADYCARDIA WITH OCCASIONAL SUPRAVENTRICULAR PREMATURE COMPLEXES LOW QRS VOLTAGE IN PRECORDIAL LEADS [QRS DEFLECTION < 1.0 mV IN CHEST LEADS] POSSIBLE ANTERIOR MYOCARDIAL INFARCTION , PROBABLY OLD [30 ms Q WAVE IN V3/V4, OR R < 0.2 mV IN V4] Compared to ECG 01/16/2024 11:42:52 Low QRS voltage now present Sinus rhythm no longer present Myocardial infarct finding still present Electronically Signed On 06-30-2024 14:00:19 CDT by Dakota Gilmore M.D. [id number]
--- NOTE | 2024-06-30 09:06 | ED_ITS ---
HPI - Back Pain/Injury 2 General: Chief Complaint: Back Pain/Injury Stated Complaint: Back pain, stomach pain, low blood pressure Time Seen by Provider: 06/30/24 08:29 History of Present Illness: 78-year-old female with a history of per ipheral vascular disease ischemic cardiomyopathy, coronary artery disease and hypertension who presents to the emergency room with left flank pain and occasional abdominal pain.She has had some bladder symptoms. Some incontinence. Some nausea but no vomiting. No fevers. No altered mental status. No chest pain. No shortness of breath. Related Data Home Medications Medication Instructions Recorded Confirmed turmeric 400 mg capsule 400 mg PO DAILY 02/23/21 06/30/24 biotic silver See Rx Instructions .Route 05/12/23 06/30/24 .COMPLEX PRN Shortness Of Breath Or Wheezing coenzyme Q10 100 mg capsule 100 mg PO DAILY 01/16/24 06/30/24 (CoQ-10) vitamin B complex 1 tab PO DAILY 01/16/24 06/30/24 cilostazol 100 mg tablet See Rx Instructions .Route .COMPLEX 06/30/24 06/30/24 insulin glargine 100 unit/mL (3 45 unit SUBCUT BEDTIME 06/30/24 06/30/24 mL) subcutaneous pen (Lantus Solostar U-100 Insulin) Previous Rx's Medication Instructions Recorded lisinopril 40 mg tablet 40 mg PO DAILY #90 tabs 09/28/23 carvedilol 25 mg tablet 25 mg PO BID #180 tabs 03/04/24 hydrocodone 5 mg-acetaminophen 325 1 tab PO Q6H PRN pain #20 tabs 06/30/24 mg tablet ondansetron 8 mg disintegrating 8 mg PO Q6H #14 tabs 06/30/24 tablet polyethylene glycol 3350 17 17 g PO DAILY #510 grams 06/30/24 gram/dose oral powder (Miralax) tamsulosin 0.4 mg capsule (Flomax) 0.4 mg PO DAILY #30 caps 06/30/24 Allergies Allergy/AdvReac Type Severity Reaction Status Date / Time ciprofloxacin [From Cipro] Allergy Unknown Verified 04/06/24 11:29 nitrofurantoin Allergy Unknown Verified 04/06/24 11:29 [From Macrobid] Penicillins Allergy Unknown Verified 04/06/24 11:29 Review of Systems 2 Narrative: Constitutional symptoms: Negative except as documented in HPI. Skin symptoms: Negative except as documented in HPI. Eye symptoms: Negative except as documented in HPI. ENMT symptoms: Negative except as documented in HPI. Respiratory symptoms: Negative except as documented in HPI. Cardiovascular symptoms: Negative except as documented in HPI. Gastrointestinal symptoms: Negative except as documented in HPI. Genitourinary symptoms: Negative except as documented in HPI. Musculoskeletal symptoms: Negative except as documented in HPI. Neurologic symptoms: Negative except as documented in HPI. Psychiatric symptoms: Negative except as documented in HPI. Endocrine symptoms: Negative except as documented in HPI. PFSH ED 2 PFSH: Medical History PAD (peripheral artery disease) Ischemic cardiomyopathy 05/20/2023: LVEF 60 to 65%, grade 2 diastolic dysfunction CAD (coronary artery disease) Diabetes Dyslipidemia HTN (hypertension) Surgical History S/P cholecystectomy S/P appendectomy S/P hysterectomy Family History Other CAD (coronary artery disease) Cancer Diabetes Social History Smoking and tobacco/nicotine status: never used tobacco/nicotine Second hand smoke exposure: Yes Alcohol intake: never Substance/Drug Use: never Lives independently: Yes Household members: none Marital status: Single Current occupational status: employed Pets and animals: No Do you think of yourself as: Straight/Heterosexual Current gender identity: Female Physical Exam 2 Narrative: EXAM NARRATIVE: General: Alert, no acute distress. Skin: Warm, dry. Head: Normocephalic, atraumatic. Neck: Supple, trachea midline. Eye: Extraocular movements are intact. Ears, nose, mouth and throat: mucosa moist. Cardiovascular: Regular, Normal peripheral perfusion. Respiratory: Lungs are clear to auscultation, respirations are non-labored, breath sounds are equal, Symmetrical chest wall expansion. Gastrointestinal: Soft, Nontender, Non distended Musculoskeletal: Normal ROM, no deformity. Neurological: Alert and oriented, No focal neurological deficit observed. Psychiatric: Cooperative, appropriate mood & affect. Course 2 Vital Signs: Vital signs: Vital Signs Temperature 98.1 F 06/30/24 08:19 Pulse Rate 85 06/30/24 11:20 Respiratory Rate 25 H 06/30/24 11:20 Blood Pressure 184/87 06/30/24 11:20 Pulse Oximetry 97 06/30/24 11:15 Oxygen Delivery Me thod Room Air 06/30/24 08:19 MDM - Back Pain/Injury Medical Decision Making Medical decision making: Differential diagnosis including but not limited to and based on the above HPI, review of systems and physical exam: Ureterolithiasis. Urinary tract infection. Appendicitis. Cholecystis. Musculoskeletal / back pain. Pyelonephritis Orders placed to evaluate differential diagnosis based on the above differential, HPI and physical exam EKG: Time 838. Rate 56. PVCs. Sinus bradycardia, No ST-T changes, normal [place] & QRS intervals, This was reviewed and interpreted by myself the ER physician at 842. Lab Review: Laboratory results were reviewed and interpreted by myself the emergency room physician. CT of the abdomen pelvis: Distal right ureteral 2 mm calcification with no obstruction. Kidney cyst. No ascites. Prior cholecystectomy and hysterectomy. Diffuse constipation. This was reviewed and interpreted by myself the emergency room physician. I also reviewed the radiology report. I reviewed the patient's medical record. Reexamination: Patient remained stable. No increased work of breathing. No altered mental status. No focal motor deficits. Assessment and plan: Ureterolithiasis Constipation ?Normal saline bolus, morphine, Zofran and a bottle of mag citrate. - Discharged home - Discussed findings and plan with patient. Answered any questions. - All laboratory values were reviewed and interpreted personally by myself, the ER physician - All imaging was reviewed and interpreted personally by myself, the ER physician. - Evaluation and treatment of this problem were appropriate in the emergency setting Labs 06/30/24 10:04 06/30/24 10:04 Radiology Impressions Abdomen/Pelvis CT 06/30/24 08:36 IMPRESSION: 1. Distal RIGHT ureteral 2 mm calcification without obstruction. 2. Stable parapelvic cyst LEFT kidney. 3. No ascites or adenopathy. 4. Prior cholecystectomy and hysterectomy. 5. Moderate diffuse constipation. 6. Distal colonic diverticulosis. Laboratory Results WBC 5.35 10^3/uL (3.29-11.43) 06/30/24 10:04 RBC 4.02 10^6/uL (3.85-5.65) 06/30/24 10:04 Hgb 12.20 g/dL (11.27-16.99) 06/30/24 10:04 Hct 37.3 % (36-47) 06/30/24 10:04 MCV 92.8 fl (85-98) 06/30/24 10:04 MCH 30.3 pg (27-33) 06/30/24 10:04 MCHC 32.7 g/dL (30-55) 06/30/24 10:04 RDW 12.5 % (12.1-15.1) 06/30/24 10:04 Plt Count 246 10^3/cmm (157-399) 06/30/24 10:04 MPV 10.0 fL (7.4-10.4) 06/30/24 10:04 Neut % (Auto) 57.0 % 06/30/24 10:04 Lymph % (Auto) 31.0 % 06/30/24 10:04 [place] % (Auto) 8.4 % 06/30/24 10:04 Eos % (Auto) 2.6 % 06/30/24 10:04 Baso % (Auto) 0.6 % 06/30/24 10:04 Neut # (Auto) 3.05 10^3/uL (1.8-7.7) 06/30/24 10:04 Lymph # (Auto) 1.7 10^3/uL (0.8-4.8) 06/30/24 10:04 [place] # (Auto) 0.5 10^3/uL (0.2-0.9) 06/30/24 10:04 Eos # (Auto) 0.1 10^3/uL (0.0-0.8) 06/30/24 10:04 Baso # (Auto) 0.0 10^3/uL (0.0-0.1) 06/30/24 10:04 Nucleated RBC % (auto) 0 % 06/30/24 10:04 Nucleated RBCs # 0.0 /100WBC 06/30/24 10:04 Sodium 141 mmol/L (136-145) 06/30/24 10:04 Potassium 4.2 mmol/L (3.5-5.1) 06/30/24 10:04 Chloride 106 mmol/L (98-107) 06/30/24 10:04 Carbon Dioxide 26 mmol/L (22-29) 06/30/24 10:04 Anion Gap 13.2 (5-19) 06/30/24 10:04 BUN 13 mg/dL (8-23) 06/30/24 10:04 Creatinine 0.7 mg/dL (0.5-0.9) 06/30/24 10:04 GFR Calculation Not Reportable 06/30/24 10:04 Glucose 124 mg/dL (65-115) H 06/30/24 10:04 Calculated Osmolality 294 mOsm/kg (285-295) 06/30/24 10:04 Lactic Acid 0.8 mmol/L (0.5-2.2) 06/30/24 10:04 Calcium 9.9 mg/dL (8.5-10.5) 06/30/24 10:04 Total Bilirubin 0.4 mg/dL (0.15-1.2) 06/30/24 10:04 AST 17 U/L (0-32) 06/30/24 10:04 ALT 16 U/L (0-33) 06/30/24 10:04 Alkaline Phosphatase 77 U/L (35-105) 06/30/24 10:04 C-Reactive Protein 6.7 mg/L (0.0-4.9) H 06/30/24 10:04 Total Protein 7.1 g/dL (6.6-8.7) 06/30/24 10:04 Albumin 4.1 g/dL (3.5-5.2) 06/30/24 10:04 Globulin 3.0 g/dL (1.3-4.6) 06/30/24 10:04 Procalcitonin 0.06 ng/mL (0-0.5) 06/30/24 10:04 Coronavirus (PCR) Negative (Negative) 06/30/24 08:42 Influenza A (PCR) Negative (Negative) 06/30/24 08:42 Influenza Type B (PCR) Negative (Negative) 06/30/24 08:42 RSV (PCR) Negative (Negative) 06/30/24 08:42 All radiology interpretation(s) finalized by discharge Discharge Plan Discharge Patient Disposition: Home Clinical Impression: Ureterolithiasis Condition: Stable Prescriptions: New hydrocodone-acetaminophen 5-325 mg tablet 1 tab PO Q6H PRN (Reason: pain) Qty: 20 0RF Flomax 0.4 mg capsule 0.4 mg PO DAILY Qty: 30 0RF Miralax 17 gram/dose powder 17 g PO DAILY Qty: 510 0RF Rx Instructions: Take 1 scoop daily while taking pain medications. ondansetron 8 mg tablet,disintegrating 8 mg PO Q6H Qty: 14 0RF Rx Instructions: Take 1/2-1 tab every 6 hours as needed for nausea and vomiting No Action biotic silver aerosol See Rx Instructions .ROUTE .COMPLEX PRN (Reason: Shortness Of Breath Or Wheezing) Rx Instructions: Use as directed inhaled intranasal as needed. carvedilol 25 mg tablet 25 mg PO BID Qty: 180 1RF Rx Instructions: must administer with a meal/food lisinopril 40 mg tablet 40 mg PO DAILY Qty: 90 3RF turmeric 400 mg Capsule 400 mg PO DAILY cilostazol 100 mg tablet See Rx Instructions .ROUTE .COMPLEX Rx Instructions: TAKE 1 TABLET BY MOUTH 30 MINUTES BEFORE OR TWO HOURS AFTER BREAKFAST AND DINNER TWICE DAILY. Lantus Solostar U-100 Insulin 100 unit/mL (3 mL) insulin pen 45 unit SUBCUT BEDTIME vitamin B complex Tablet 1 tab PO DAILY coenzyme Q10 [CoQ-10] 100 mg Capsule 100 mg PO DAILY Discharge Orders: Discharge ED (Routine); Ordered 06/30/24 Ordered By: Letty Schmid Referrals: Flo Zamora [Referring] - (Please call for an appoint with Dr. Zamora or with the urologist of your choosing.) Charbel Glez DO [Primary Care Provider] - Discharge Diet: Usual diet Discharge Activity: Increase activity as tolerated Patient Instructions: Kidney Stones (ED), Opioid Safety Activity Restrictions/Additional Instructions: Call for appointment with urology. If fever (temp >100.4) develops return to the emergency room immediately, as this is an emergency. Take nausea medication prior to taking pain medications. Thank you for choosing [facility] for your healthcare needs today. Please realize this is an emergency room and that we are providing you with a medical screening exam and this may not be complete and all inclusive of all the testing and or work up that you may need to determine your ailment or severity of your illness. You have been screened and evaluated and felt safe for discharge. Health conditions do change or evolve sometimes and as such it is important that you follow up with your Primary Doctor to be re checked, 3-5 days is a general good time frame for follow up. You are always welcome to return to the ED for re assessment if your symptoms are worsening or you have new concerns Coding Level of Care Code ED Teacher Of The Emotionally Disturbed for Filomena Nguyen
[2024-06-30 09:31] LABS: Covid PCR NEGATIVE (Negative); Influenza A NEGATIVE (Negative); Influenza B NEGATIVE (Negative); Respiratory Syncytial Virus Ce NEGATIVE (Negative)
[2024-06-30 10:20] LABS: Basophils % 0.6 %; Eosinophils # 0.1 10^3/uL (0.0-0.8); Eosinophils % 2.6 %; Hematocrit 37.3 % (36-47); Lymphocytes # 1.7 10^3/uL (0.8-4.8); Mean Corpuscular HGB Conc 32.7 g/dL (30-55); Mean Corpuscular Hemoglobin 30.3 pg (27-33); Mean Corpuscular Volume 92.8 fl (85-98); Monocytes # 0.5 10^3/uL (0.2-0.9); Monocytes % 8.4 %; Neutrophils # 3.05 10^3/uL (1.8-7.7); Nucleated Red Blood Cells % 0 %; Platelet Count 246 10^3/cmm (157-399); Red Blood Count 4.02 10^6/uL (3.85-5.65); Red Cell Distribution Width 12.5 % (12.1-15.1); White Blood Count 5.35 10^3/uL (3.29-11.43)
[2024-06-30 10:40] LABS: Alanine Aminotransferase 16 U/L (0-33); Albumin Level 4.1 g/dL (3.5-5.2); Alkaline Phosphatase 77 U/L (35-105); Anion Gap 13.2 (5-19); Aspartate Amino Transferase 17 U/L (0-32); Blood Urea Nitrogen 13 mg/dL (8-23); C Reactive Protein 6.7 mg/L (0.0-4.9); Calcium 9.9 mg/dL (8.5-10.5); Carbon Dioxide 26 mmol/L (22-29); Chloride 106 mmol/L (98-107); Creatinine Clr Calc Pharmacy 52.2559; Glucose 124 mg/dL (65-115); Osmolality Calculated 294 mOsm/kg (285-295); Potassium 4.2 mmol/L (3.5-5.1); Sodium 141 mmol/L (136-145); Total Bilirubin 0.4 mg/dL (0.15-1.2); Total Protein 7.1 g/dL (6.6-8.7)
[2024-06-30 10:41] LABS: Lactic Sepsis W/Reflex 0.8 mmol/L (0.5-2.2)
[2024-06-30 10:45] LABS: Procalcitonin 0.06 ng/mL (0-0.5)
[2024-06-30] MEDS: sodium chloride 0.9% 1,000 ML 999 ML IV (10:48)
== END 2024-06-30 12:04 | disposition home or self-care (01) ==
PROVIDERS: Emergency Provider Emergency Medicine; PCP Electrodiagnostic Medicine
DX: N20.1 Calculus of ureter (principal); Z79.4 Long term (current) use of insulin; R00.1 Bradycardia, unspecified; Z77.22 Contact with and (suspected) exposure to environmental tobacco smoke (acute) (chronic); I25.5 Ischemic cardiomyopathy; I10 Essential (primary) hypertension; I25.10 Atherosclerotic heart disease of native coronary artery without angina pectoris; E78.5 Hyperlipidemia, unspecified
CPT/HCPCS: 0241U; 36415; 74176; 80053; 83605; 84145; 85025; 86140; 87040; 93005; 99284; J7030

== ENCOUNTER → 2024-07-05 14:39 | Outpatient (BNVA) | payer MEDICARE, OTHER, SELFPAY | PROVIDERS: PCP Electrodiagnostic Medicine; Visit Provider Internal Medicine | DX: R06.09 Other forms of dyspnea (principal); I25.5 Ischemic cardiomyopathy; I25.10 Atherosclerotic heart disease of native coronary artery without angina pectoris; I10 Essential (primary) hypertension; E78.5 Hyperlipidemia, unspecified; E11.9 Type 2 diabetes mellitus without complications | CPT/HCPCS: 99214 ==

== ENCOUNTER → 2024-07-05 15:41 | Outpatient (BNVA) | payer MEDICARE, OTHER, SELFPAY | PROVIDERS: PCP Electrodiagnostic Medicine; Visit Provider Internal Medicine | DX: R00.2 Palpitations (principal); I49.3 Ventricular premature depolarization; I47.20 Ventricular tachycardia, unspecified; I49.1 Atrial premature depolarization | CPT/HCPCS: 93244 ==

== ENCOUNTER 2024-08-09 17:00 | Observation (INO) | payer MEDICARE, OTHER, SELFPAY ==
[2024-08-09 17:02] VITALS: BP 183/98; PULSE 71; RESP 16; TEMP 36.8; O2SAT 95
--- NOTE | 2024-08-09 17:06 | ECG_ITS ---
[facility] Test Date: 2024-08-09 Pat Name: Carmella Hyatt Department: Room: Gender: Female Criminal Analyst: : 1945 Requested By: Chen Quezada Order Number: [id number] Aleisha MD: Yadira Mack M.D. Measurements Intervals [place] Rate: 80 P: 77 ME: 198 QRS: 12 QRSD: 83 T: 52 QT: 376 QTc: 435 Interpretive Statements SINUS RHYTHM MINIMAL ST DEPRESSION [0.025+ mV ST DEPRESSION] Compared to ECG 06/30/2024 08:38:05 ST (T wave) deviation now present Sinus bradycardia no longer present Myocardial infarct finding no longer present Electronically Signed On 08-10-2024 16:57:00 CDT by Yadira Mack M.D. [id number]
--- NOTE | 2024-08-09 17:06 | XRR_ITS ---
PROCEDURE INFORMATION: Exam: XR Chest Exam date and time: 08/09/2024 5:18 PM Age: 78 years old Clinical indication: Shortness of breath; Additional info: Cp TECHNIQUE: Imaging protocol: Radiologic exam of the chest. Views: 1 view. COMPARISON: CR XR chest 1V portable [id number] 01/16/2024 11:31 AM FINDINGS: Lungs: Unremarkable. No consolidation or mass. Pleural spaces: Unremarkable. No pleural effusion. No pneumothorax. Heart/Mediastinum: Unremarkable. No cardiomegaly. Bones/joints: Unremarkable. XR/XR chest 1V portable [id number] IMPRESSION: No acute findings.
[2024-08-09 17:27] LABS: Basophils # 0.1 10^3/uL (0.0-0.1); Basophils % 0.8 %; Eosinophils # 0.2 10^3/uL (0.0-0.8); Eosinophils % 3.8 %; Lymphocytes # 2.7 10^3/uL (0.8-4.8); Lymphocytes % 43.2 %; Mean Corpuscular HGB Conc 33.4 g/dL (30-55); Mean Corpuscular Volume 92.7 fl (85-98); Mean Platelet Volume 10.4 fL (7.4-10.4); Monocytes # 0.6 10^3/uL (0.2-0.9); Monocytes % 9.4 %; Neutrophils # 2.67 10^3/uL (1.8-7.7); Neutrophils % 42.6 %; Nucleated Red Blood Cells % 0 %; Platelet Count 205 10^3/cmm (157-399); Red Cell Distribution Width 12.7 % (12.1-15.1); White Blood Count 6.27 10^3/uL (3.29-11.43)
[2024-08-09 17:43] LABS: INR 0.96 (0.8-1.2)
[2024-08-09 18:09] LABS: Troponin(5th) Baseline 13 ng/L (0-10)
[2024-08-09 18:13] LABS: Alanine Aminotransferase 18 U/L (0-33); Albumin Level 4.3 g/dL (3.5-5.2); Alkaline Phosphatase 74 U/L (35-105); Anion Gap 15.6 (5-19); Aspartate Amino Transferase 18 U/L (0-32); Blood Urea Nitrogen 16 mg/dL (8-23); Calcium 9.3 mg/dL (8.5-10.5); Carbon Dioxide 24 mmol/L (22-29); Chloride 106 mmol/L (98-107); Creatinine Clr Calc Pharmacy 52.5771; Globulin 2.4 g/dL (1.3-4.6); Glucose 199 mg/dL (65-115); Lipase 16 U/L (13-60); Osmolality Calculated 301 mOsm/kg (285-295); Potassium 3.6 mmol/L (3.5-5.1); Sodium 142 mmol/L (136-145); Total Bilirubin 0.3 mg/dL (0.15-1.2); Total Protein 6.7 g/dL (6.6-8.7)
--- NOTE | 2024-08-09 19:06 | ECG_ITS ---
[facility] Date: 2024-08-09 Pat Name: Carmella Hyatt Department: Room: Gender: Female Family Specialist: : 1945 Requested By: Chen Quezada Order Number: [id number] Moraes MD: Yadira Mack M.D. Measurements Intervals [place] Rate: 76 P: 0 [place]: 0 QRS: 20 QRSD: 84 T: 47 QT: 380 QTc: 429 Interpretive Statements ATRIAL FIBRILLATION MINIMAL ST DEPRESSION [0.025+ mV ST DEPRESSION] ABNORMAL RHYTHM ECG Compared to ECG 08/09/2024 17:03:27 Sinus rhythm no longer present ST (T wave) deviation still present Electronically Signed On 08-10-2024 18:05:36 CDT by Yadira Mack M.D. [email or web address]
[2024-08-09 19:52] LABS: Troponin 5 2HR 11.52 ng/L (0-10)
[2024-08-09 19:54] LABS: Troponin 5 2HR Delta -1.48 ABS# (0-10)
--- NOTE | 2024-08-09 20:43 | ED_ITS ---
HPI - SOB/Dyspnea 2 General: Chief Complaint: Shortness of Breath/Dyspnea Stated Complaint: pain in back, sob, (heart attack in past) Time Seen by Provider: 08/09/24 20:41 History of Present Illness: HPI Narrative: This is an 78-year-old female with history of coronary artery disease and hypertension. She had stents couple of years ago. Recently she has been having some trouble with her blood pressure being elevated. Over the last day or so she has been having some pain in her upper back. She then developed some pain into her left arm. Her family said she needs to come in to get this checked out. No cough. No altered mental status. No abdominal pain. No nausea or vomiting. Related Data Home Medications Medication Instructions Recorded Confirmed turmeric 400 mg capsule 400 mg PO DAILY 02/23/21 07/05/24 biotic silver See Rx Instructions .Route 05/12/23 06/30/24 .COMPLEX PRN Shortness Of Breath Or Wheezing coenzyme Q10 100 mg capsule 100 mg PO DAILY 01/16/24 07/05/24 (CoQ-10) vitamin B complex 1 tab PO DAILY 01/16/24 07/05/24 cilostazol 100 mg tablet See Rx Instructions .Route .COMPLEX 06/30/24 07/05/24 insulin glargine 100 unit/mL (3 45 unit SUBCUT BEDTIME 06/30/24 07/05/24 mL) subcutaneous pen (Lantus Solostar U-100 Insulin) Previous Rx's Medication Instructions Recorded lisinopril 40 mg tablet 40 mg PO DAILY #90 tabs 09/28/23 carvedilol 25 mg tablet 25 mg PO BID #180 tabs 03/04/24 hydrocodone 5 mg-acetaminophen 325 1 tab PO Q6H PRN pain #20 tabs 06/30/24 mg tablet ondansetron 8 mg disintegrating 8 mg PO Q6H #14 tabs 06/30/24 tablet polyethylene glycol 3350 17 17 g PO DAILY #510 grams 06/30/24 gram/dose oral powder (Miralax) tamsulosin 0.4 mg capsule (Flomax) 0.4 mg PO DAILY #30 caps 06/30/24 amlodipine 10 mg tablet 10 mg PO DAILY #90 tabs 07/18/24 Allergies Allergy/AdvReac Type Severity Reaction Status Date / Time ciprofloxacin [From Cipro] Allergy Unknown Verified 07/05/24 14:54 nitrofurantoin Allergy Unknown Verified 07/05/24 14:54 [From Macrobid] Penicillins Allergy Unknown Verified 07/05/24 14:54 Review of Systems 2 Narrative: Constitutional symptoms: Negative except as documented in HPI. Skin symptoms: Negative except as documented in HPI. Eye symptoms: Negative except as documented in HPI. ENMT symptoms: Negative except as documented in HPI. Respiratory symptoms: Negative except as documented in HPI. Cardiovascular symptoms: Negative except as documented in HPI. Gastrointestinal symptoms: Negative except as documented in HPI. Genitourinary symptoms: Negative except as documented in HPI. Musculoskeletal symptoms: Negative except as documented in HPI. Neurologic symptoms: Negative except as documented in HPI. Psychiatric symptoms: Negative except as documented in HPI. Endocrine symptoms: Negative except as documented in HPI. PFSH ED 2 PFSH: Medical History PAD (peripheral artery disease) Ischemic cardiomyopathy 05/20/2023: LVEF 60 to 65%, grade 2 diastolic dysfunction CAD (coronary artery disease) Diabetes Dyslipidemia HTN (hypertension) Surgical History S/P cholecystectomy S/P appendectomy S/P hysterectomy Family History Other CAD (coronary artery disease) Cancer Diabetes Social History Smoking and tobacco/nicotine status: never used tobacco/nicotine Second hand smoke exposure: Yes Alcohol intake: never Substance/Drug Use: never Lives independently: Yes Household members: none Marital status: Single Current occupational status: employed Pets and animals: No Do you think of yourself as: Straight/Heterosexual Current gender identity: Female Physical Exam 2 Narrative: EXAM NARRATIVE: General: Alert, no acute distress. Skin: Warm, dry. Head: Normocephalic, atraumatic. Neck: Supple, trachea midline. Eye: Extraocular movements are intact. Ears, nose, mouth and throat: mucosa moist. Cardiovascular: Regular, Normal peripheral perfusion. Respiratory: Lungs are clear to auscultation, respirations are non-labored, breath sounds are equal, Symmetrical chest wall expansion. Gastrointestinal: Soft, Nontender, Non distended Musculoskeletal: Normal ROM, no deformity. Neurological: Alert and oriented, No focal neurological deficit observed. Psychiatric: Cooperative, appropriate mood & affect. Course 2 Vital Signs: Vital signs: Vital Signs Temperature 98.2 F 08/09/24 17:02 Pulse Rate 68 08/09/24 21:05 Respiratory Rate 18 08/09/24 21:05 Blood Pressure 216/119 08/09/24 21:05 Pulse Oximetry 97 08/09/24 21:05 Oxygen Delivery Me thod Room Air 08/09/24 21:05 Clincial Decision Support The following clinical decision support tools were used to aid in care of the patient HEART Score -> History: Moderately Suspicious, EKG: Normal, Age: 65 or more yrs, Risk Factors: >/=3 Risk Factors, Troponin: Baseline Trop <16 ng/L. Resulting HEART Score: 5. MDM - SOB/Dyspnea Medical Decision Making Differential diagnosis for patient with chest pain includes but is not limited to and based on the above HPI, review of systems and physical exam: Pneumonia. unstable angina. angina. Acute coronary syndrome / [place]. Pulmonary embolism. Costochondritis / musculoskeletal. Pleurisy. Pericarditis. Esophageal spasm. Pancreatis. Cholecystitis. Orders placed to evaluate differential diagnosis based on the above differential, HPI and physical exam EKG: Time 1702. Rate 80. Normal sinus rhythm, possible minimal ST depression., no ectopy, normal [place] & QRS intervals, This was reviewed and interpreted by myself the ER physician Repeat EKG: Time 2037. Rate 76. Normal sinus rhythm, similar ST depression as previous, no ectopy, normal [place] & QRS intervals, This was reviewed and interpreted by myself the ER physician at 2041. Chest x-ray: No acute process. No infiltrate. No pneumothorax. This was reviewed and interpreted by myself the ER physician. Lab Review: Laboratory results were reviewed and interpreted by myself the emergency room physician. Lab work is unremarkable. No leukocytosis. No anemia. No renal failure. Serial cardiac markers are negative. I reviewed the patient's medical record. Heart score is 5. Patient is not okay for discharge. She warrants observation. Reexamination: Patient remained stable. No increased work of breathing. No altered mental status. No focal motor deficits. Consultation: I spoke with Dr. Encinas who is on-call for the hospitalist service and agrees to observation. Assessment and plan: Accelerated hypertension Chest pain Coronary artery disease -I discussed the patient with the hospitalist on-call who is admitting the patient. - Discussed findings and plan with patient. Answered any questions. - All laboratory values were reviewed and interpreted personally by myself, the ER physician - All imaging was reviewed and interpreted personally by myself, the ER physician. - Evaluation and treatment of this problem were appropriate in the emergency setting Lab Data 08/09/24 17:19 08/09/24 17:19 Labs/Radiology: Radiology Impressions Chest X-Ray 08/09/24 17:06 IMPRESSION: No acute findings. Laboratory Results WBC 6.27 10^3/uL (3.29-11.43) 08/09/24 17:19 RBC 4.10 10^6/uL (3.85-5.65) 08/09/24 17:19 Hgb 12.70 g/dL (11.27-16.99) 08/09/24 17:19 Hct 38.0 % (36-47) 08/09/24 17:19 MCV 92.7 fl (85-98) 08/09/24 17:19 MCH 31.0 pg (27-33) 08/09/24 17:19 MCHC 33.4 g/dL (30-55) 08/09/24 17:19 RDW 12.7 % (12.1-15.1) 08/09/24 17:19 Plt Count 205 10^3/cmm (157-399) 08/09/24 17:19 MPV 10.4 fL (7.4-10.4) 08/09/24 17:19 Neut % (Auto) 42.6 % 08/09/24 17:19 Lymph % (Auto) 43.2 % 08/09/24 17:19 [place] % (Auto) 9.4 % 08/09/24 17:19 Eos % (Auto) 3.8 % 08/09/24 17:19 Baso % (Auto) 0.8 % 08/09/24 17:19 Neut # (Auto) 2.67 10^3/uL (1.8-7.7) 08/09/24 17:19 Lymph # (Auto) 2.7 10^3/uL (0.8-4.8) 08/09/24 17:19 [place] # (Auto) 0.6 10^3/uL (0.2-0.9) 08/09/24 17:19 Eos # (Auto) 0.2 10^3/uL (0.0-0.8) 08/09/24 17:19 Baso # (Auto) 0.1 10^3/uL (0.0-0.1) 08/09/24 17:19 Nucleated RBC % (auto) 0 % 08/09/24 17:19 Nucleated RBCs # 0.0 /100WBC 08/09/24 17:19 PT 13.10 SECONDS (12.1-14.9) 08/09/24 17:19 INR 0.96 (0.8-1.2) 08/09/24 17:19 Sodium 142 mmol/L (136-145) 08/09/24 17:19 Potassium 3.6 mmol/L (3.5-5.1) 08/09/24 17:19 Chloride 106 mmol/L (98-107) 08/09/24 17:19 Carbon Dioxide 24 mmol/L (22-29) 08/09/24 17:19 Anion Gap 15.6 (5-19) 08/09/24 17:19 BUN 16 mg/dL (8-23) 08/09/24 17:19 Creatinine 0.8 mg/dL (0.5-0.9) 08/09/24 17:19 GFR Calculation Not Reportable 08/09/24 17:19 Glucose 199 mg/dL (65-115) H 08/09/24 17:19 Calculated Osmolality 301 mOsm/kg (285-295) H 08/09/24 17:19 Calcium 9.3 mg/dL (8.5-10.5) 08/09/24 17:19 Total Bilirubin 0.3 mg/dL (0.15-1.2) 08/09/24 17:19 AST 18 U/L (0-32) 08/09/24 17:19 ALT 18 U/L (0-33) 08/09/24 17:19 Alkaline Phosphatase 74 U/L (35-105) 08/09/24 17:19 Troponin T Baseline 13 ng/L (0-10) H 08/09/24 17:19 Troponin T 120 Minute 11.52 ng/L (0-10) H 08/09/24 19:21 Delta Troponin T -1.48 ABS# (0-10) L 08/09/24 19:21 Total Protein 6.7 g/dL (6.6-8.7) 08/09/24 17:19 Albumin 4.3 g/dL (3.5-5.2) 08/09/24 17:19 Globulin 2.4 g/dL (1.3-4.6) 08/09/24 17:19 Lipase 16 U/L (13-60) 08/09/24 17:19 All radiology interpretation(s) finalized by discharge Discharge Plan Discharge Patient Disposition: Placed in Observation Clinical Impression: Chest pain, Accelerated hypertension CAD (coronary artery disease) Qualifiers: Coronary Disease-Associated Artery/Lesion type: [place] artery [place] vs. transplanted heart: [place] heart Associated angina: without angina Qualified Code(s): I25.10 - Atherosclerotic heart disease of [place] coronary artery without angina pectoris Coding Level of Care Code ED Carton Forming Machine Helper for Filomena Nguyen
[2024-08-09 21:05] VITALS: BP 216/119; PULSE 68; RESP 18; O2SAT 97
[2024-08-09] MEDS: hyDRALAzine 20 mg/mL INJ 1 mL 10 MG IVP (21:25)
[2024-08-09 21:29] VITALS: BP 197/115; PULSE 73; RESP 18; O2SAT 96
[2024-08-09 22:08] VITALS: BP 201/107; PULSE 85; O2SAT 99
[2024-08-09 22:25] VITALS: BMI 27.3
[2024-08-09 22:58] LABS: Glucose Point of Care 135 mg/dL (70-110)
--- NOTE | 2024-08-09 23:06 | ECG_ITS ---
[facility] Test Date: 2024-08-10 Pat Name: Carmella Hyatt Department: Room: 112 Gender: Female Mechanotherapist: : 1945 Requested By: Chen Quezada Order Number: [id number] Aleisha MD: Yadira Mack M.D. Measurements Intervals [place] Rate: 98 P: 92 [place]: 223 QRS: 27 QRSD: 81 T: 54 QT: 371 QTc: 474 Interpretive Statements SINUS RHYTHM WITH FIRST DEGREE AV BLOCK NONSPECIFIC ST & T-WAVE ABNORMALITY Compared to ECG 08/09/2024 20:38:01 First degree AV block now present T-wave abnormality now present Electronically Signed On 08-10-2024 18:03:30 CDT by Yadira Mack M.D. [email or web address]
[2024-08-09 23:36] VITALS: BP 225/144
[2024-08-09] MEDS: hyDRALAzine 20 mg/mL INJ 1 mL IVP (23:36)
[2024-08-09] MEDS: cloNIDine 0.1 mg Tablet PO (23:36)
[2024-08-09] MEDS: cilostazol 100 mg Tablet PO (23:36)
[2024-08-09 23:37] VITALS: PULSE 94
[2024-08-09] MEDS: insulin glargine 100 units/1 mL 45 UNIT SUBCUT (23:37)
--- NOTE | 2024-08-09 23:52 | P.HP_ITS ---
Providers/Chief Complaint 2 Admitting Physician: Taj Encinas MD Primary Care Provider: Charbel Glez DO Chief Complaint: pain in back, sob, (heart attack in past) History of Present Illness Carmella Hyatt is a 78 year old female with coronary artery disease and 3 stents 2016has chronically elevated blood pressure. She is says her systolic runs 200 typically and diastolic 105. She was referred to Dr. Diaz and after seeing him got a message from the nurse to start amlodipine 10 mg daily. Patient states she read the side effects of leg swelling and has trouble with leg swelling and diabetes already so did not take it. Patient was having back pain the last couple of days and her daughter who is a psychometrician had a patient who with on evaluated back pain so the patient came into the emergency department. Patient states she is not stressed out seeing the monitor but she is somewhat anxious and a little bit tearful in discussing this. Patient denies ever taking nifedipine. She is initially adamant that she will take amlodipine. She tells me that clonidine caused her rhythm to go flatline about 10 years ago. She states that her vision darkened with the clonidine but had taken 2 mg at the time. Medications/Allergies Home Medications Medication Instructions Recorded Confirmed Last Taken Type turmeric 400 mg capsule 400 mg PO DAILY 02/23/21 07/05/24 06/29/24 History biotic silver See Rx Instructions .Route 05/12/23 06/30/24 Unknown History .COMPLEX PRN Shortness Of Breath Or Wheezing lisinopril 40 mg tablet 40 mg PO DAILY #90 tabs 09/28/23 07/05/24 06/29/24 Rx coenzyme Q10 100 mg capsule 100 mg PO DAILY 01/16/24 07/05/24 06/29/24 History (CoQ-10) vitamin B complex 1 tab PO DAILY 01/16/24 07/05/24 06/29/24 History carvedilol 25 mg tablet 25 mg PO BID #180 tabs 03/04/24 07/05/24 06/30/24 Rx cilostazol 100 mg tablet See Rx Instructions .Route .COMPLEX 06/30/24 07/05/24 Unknown History hydrocodone 5 mg-acetaminophen 325 1 tab PO Q6H PRN pain #20 tabs 06/30/24 07/05/24 Unknown Rx mg tablet insulin glargine 100 unit/mL (3 45 unit SUBCUT BEDTIME 06/30/24 07/05/24 06/29/24 History mL) subcutaneous pen (Lantus Solostar U-100 Insulin) ondansetron 8 mg disintegrating 8 mg PO Q6H #14 tabs 06/30/24 07/05/24 Unknown Rx tablet polyethylene glycol 3350 17 17 g PO DAILY #510 grams 06/30/24 07/05/24 Unknown Rx gram/dose oral powder (Miralax) tamsulosin 0.4 mg capsule (Flomax) 0.4 mg PO DAILY #30 caps 06/30/24 07/05/24 Unknown Rx amlodipine 10 mg tablet 10 mg PO DAILY #90 tabs 07/18/24 Unknown Rx Allergies Allergy/AdvReac Type Severity Reaction Status Date / Time ciprofloxacin [From Cipro] Allergy Unknown Verified 07/05/24 14:54 nitrofurantoin Allergy Unknown Verified 07/05/24 14:54 [From Macrobid] Penicillins Allergy Unknown Verified 07/05/24 14:54 PFSH Acute 2 PFSH: Medical History PAD (peripheral artery disease) Ischemic cardiomyopathy 05/20/2023: LVEF 60 to 65%, grade 2 diastolic dysfunction CAD (coronary artery disease) Diabetes Dyslipidemia HTN (hypertension) Surgical History S/P cholecystectomy S/P appendectomy S/P hysterectomy Family History Other CAD (coronary artery disease) Cancer Diabetes Social History Smoking and tobacco/nicotine status: never used tobacco/nicotine Second hand smoke exposure: Yes Alcohol intake: never Substance/Drug Use: never Lives independently: Yes Household members: none Marital status: Single Current occupational status: employed Pets and animals: No Do you think of yourself as: Straight/Heterosexual Current gender identity: Female Vitals/I&O/Wt Last Vital Signs Temp 98.2 F 08/09/24 17:02 Pulse 85 08/09/24 22:08 Resp 18 08/09/24 21:29 BP 225/144 08/09/24 23:36 Pulse Ox 99 08/09/24 22:08 O2 Del Method Room Air 08/09/24 22:25 Weight last 48 hrs Weight 69.853 kg Weight 69.853 kg Physical Exam 2 Narrative: General well-developed well-nourished General Well-developed well-nourished female in no acute cardiopulmonary distress she is anxious and particular about her medications. CV regular rate and rhythm Lungs trace left basilar crackles cleared with deep breaths Abdomen positive bowel sounds soft nontender Calves no tenderness cords or pretibial edema Mentation alert and oriented x 3 Skin warm and dry Data 08/09/24 17:19 08/09/24 17:19 A&P Assessment and plan (1) CAD (coronary artery disease): Cardiac enzymes thus far negative. Patient will have additional troponin in the morning. She is not on cholesterol treatment and is vague about why that is the case we will order's hs-CRP and lipoprotein a. She has not been compliant with taking amlodipine due to fear of leg swelling. She was given hydralazine in the emergency department 10 mg with limited efficacy. Additional hydralazine 20 mg, clonidine 0.1 mg and amlodipine 5 mg ordered. She did take her Coreg 25 mg twice a day and lisinopril 40 mg this morning. Qualifiers: Coronary Disease-Associated Artery/Lesion type: [place] artery [place] vs. transplanted heart: [place] heart Associated angina: without angina Qualified Code(s): I25.10 - Atherosclerotic heart disease of [place] coronary artery without angina pectoris (2) Accelerated hypertension: Additional blood pressure medication ordered see above. Will also add lorazepam 0.5 mg for anxiety. Repeat troponin in the morning. Attestations 2 Medical Necessity Statement*: Patient is admitted to observation. Anticipate less than 2 midnights Coding Level of Care Code 20454 Diagnoses Coronary artery disease involving [place] coronary artery of [place] heart without angina pectoris I25.10 Coronary Disease-Associated Artery/Lesion type: [place] artery [place] vs. transplanted heart: [place] heart Associated angina: without angina Accelerated hypertension I10 Time Spent (min) 70
[2024-08-10] VITALS (11 sets, daily range): BP systolic 101–165; BP diastolic 47–86; PULSE 80–108; RESP 16–24; TEMP 36.6–37.1; O2SAT 93–96
[2024-08-10] MEDS: amlodipine 5 mg Tablet PO ×2 (00:05→09:09)
[2024-08-10] MEDS: LORazepam 0.5 mg Tablet PO (00:05)
[2024-08-10] MEDS: enoxaparin 40 mg/0.4 mL Syringe SUBCUT ×2 (00:06→23:56)
[2024-08-10 00:16] LABS: Troponin 5 6HR 8.74 ng/L (0-10); Troponin 5 6HR Delta -4.26 ng/L (0-12)
[2024-08-10 04:02] LABS: Troponin T (5th) Once 16 ng/L (0-10)
[2024-08-10 04:04] LABS: Cholesterol 180 mg/dL (0-200); HDL Cholesterol 40 mg/dL (60-100); LDL Cholesterol Calculated 107 mg/dL (50-129); LDL HDL Ratio 2.68 RATIO (0.00-3.22); Triglycerides 166 mg/dL (0-150)
[2024-08-10 04:09] LABS: Anion Gap 13.5 (5-19); Blood Urea Nitrogen 18 mg/dL (8-23); Calcium 9.6 mg/dL (8.5-10.5); Carbon Dioxide 23 mmol/L (22-29); Chloride 108 mmol/L (98-107); Creatinine Clr Calc Pharmacy 52.5771; Glucose 210 mg/dL (65-115); Osmolality Calculated 300 mOsm/kg (285-295); Potassium 3.5 mmol/L (3.5-5.1); Sodium 141 mmol/L (136-145)
[2024-08-10] MEDS: cilostazol 100 mg Tablet PO ×2 (06:12→18:01)
[2024-08-10 06:39] LABS: Glucose Point of Care 171 mg/dL (70-110)
[2024-08-10] MEDS: insulin lispro 100 unit/1 mL SUBCUT ×4 (08:42→21:20)
[2024-08-10] MEDS: carvedilol 25 mg Tablet PO ×2 (09:09→18:01)
[2024-08-10] MEDS: cloNIDine 0.1 mg Tablet PO (09:10)
[2024-08-10] MEDS: lisinopril 20 mg Tablet 40 MG PO (09:11)
--- NOTE | 2024-08-10 09:59 | PC.CHAP ---
Pastoral Care Encounter/Spiritual Assessment Type of Contact [] Declined highballer visit [] Patient/Family/Request visit [] Outpatient visit [] Follow-up visit [] Physician referral [] Code/Alert [x] Routine visit [] Staff referral [] Actively dying [] Patient sleeping [] Family support [] [] Out of room [] Palliative care [] [] Receiving care in room [] Pre-surgical visit [] Trauma [] Long length of stay [] ICU visit [] Other: Relational/Emotional Strength [x] Patient feels connected with others/family/visitors/staff [] Distress [] Loneliness/isolation [] Abandonment Spirituality of Patient [x] Person of [place]ovita [] Attends Mosque of their [place] [x] Believes in Prayer [] Reads Bible or Buddhism materials [] There are Spiritual issues to be addressed Parachute Folder Interventions [x] Prayer [x] Active listening [] Non-anxious presence [x] Spiritual/emotional support [] Crisis/trauma care [] Spiritual counseling [] Bereavement support [] Provided bereavement packet [] Provided Bible/devotional materials [] Provided toy/stuffed animal, coloring book to patient or family member [] Provided Communion [] Anointing/[place] [] Salvation [x] Completed spiritual assessment [] Other: Impact on Illness or Injury [] Angry [] Fearful [] Anxious [] Often cries [] Exhaustion [] Unable to work [] Unable to attend congregation [] Unable to walk/stand [] Unable to read [] Unable to drive [] Unable to eat/drink [] Unable to sleep [] Unable to be with family [] Patient intubated [] Other: Summary 5 min Time spent with patient
[2024-08-10 11:26] LABS: Glucose Point of Care 215 mg/dL (70-110)
[2024-08-10 17:07] LABS: Glucose Point of Care 205 mg/dL (70-110)
--- NOTE | 2024-08-10 18:19 | ECG_ITS ---
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
--- NOTE | 2024-08-10 18:28 | P.PN_ITS ---
Subjective 2 Subjective: Troponin series without significant delta at 2 or 6 hours. EKG did not show any other changes. Her blood pressure is much better controlled now. Patient continues to complain of back discomfort radiating into her left arm. She also complains of feeling unsteady on her feet. She was evaluated for dizziness at the cardiology clinic about a month ago where a Holter monitor was placed. Results from June 2024 show the maximum recorded heart rate was at 184 bpm, minimum heart rate was 43 bpm. Average heart rate was 78 bpm. There were 72 VE beats less than 1% burden. There was 1 occurrence of V. tach at 184 bpm lasting 3 beats. There were 212 occurrences of SVT with fastest episode heart rate of 181. All patient triggered events on the Holter monitor when feeling dizziness shortness of breath and chest pain showed sinus rhythm. Patient was made to walk in the hallway today. She reported dizziness, however no arrhythmia was encountered on telemetry. Unlikely that her symptoms are related to underlying arrhythmia. Patient has been experiencing some anxiety as it is the 1 year anniversary of her son's . This was brought up by patient's daughter. Medications: Reviewed: Yes Vitals/I&O/Wt Last Vital Signs Temp 97.9 F 08/10/24 16:00 Pulse 85 08/10/24 16:00 Resp 16 08/10/24 16:00 BP 101/52 08/10/24 18:03 Pulse Ox 93 08/10/24 16:00 O2 Del Method Room Air 08/10/24 16:00 08/10/24 08/10/24 08/10/24 06:59 14:59 22:59 Intake Total 600 / 600 240 / 240 Balance 600 / 600 240 / 240 Weight last 48 hrs Weight 71.5 kg Weight 69.853 kg Weight 69.853 kg Physical Exam 2 Narrative: General: No acute distress, AO x3 HEENT: PERRLA, pupils bilaterally equal and reactive, pallors not present Chest: Normal vesicular breath sounds, no added sounds, equal good air entry bilaterally CVS: S1-S2 regular, no murmurs, no tachycardia, no gallops, no rubs Abdomen: Soft, nontender, no organomegaly, bowel sounds present Neuro: No focal deficits, no facial deformity, AO x3, power 5/5 in all limbs Data 08/09/24 17:19 08/10/24 03:34 A&P Assessment and plan (1) CAD (coronary artery disease): Cardiac enzymes thus far negative. Patient will have additional troponin in the morning. She is not on cholesterol treatment and is vague about why that is the case we will order's hs-CRP and lipoprotein a. She has not been compliant with taking amlodipine due to fear of leg swelling. She was given hydralazine in the emergency department 10 mg with limited efficacy. Additional hydralazine 20 mg, clonidine 0.1 mg and amlodipine 5 mg ordered. She did take her Coreg 25 mg twice a day and lisinopril 40 mg this morning. Qualifiers: Coronary Disease-Associated Artery/Lesion type: [place] artery [place] vs. transplanted heart: [place] heart Associated angina: without angina Qualified Code(s): I25.10 - Atherosclerotic heart disease of [place] coronary artery without angina pectoris (2) Accelerated hypertension: Additional blood pressure medication ordered see above. Will also add lorazepam 0.5 mg for anxiety. Repeat troponin in the morning. Plan August 10, 2024. Blood pressure is better controlled today. Discontinuing clonidine as systolic blood pressure close to 100 systolic now. Will continue with amlodipine 10 mg daily and losartan 40 mg daily. Additionally continuing carvedilol 25 mg p.o. twice daily. No arrhythmias encountered on telemetry though patient does report intermittent dizziness. Physical therapy assessment was sought, home exercise program is recommended. Patient recommended to use a cane to ambulate. Since patient continues to have intermittent back and left sided discomfort, we will go ahead and obtain a stress test to evaluate for angina as the cause of her symptoms. Her daughter reports that patient has been recommended outpatient stress test in the past, however she has been anxious to undergo these. It appears her son a year ago this month for CHF and she has been worried about cardiac symptoms ever since. Will trial Ativan 0.5 mg every 8 hours as needed and if patient agreeable proceed with stress test tomorrow morning. Additionally check orthostatics. Attestations 2 Medical Necessity Statement*: Plan stress test tomorrow Coding Level of Care Code Acute Code for [facility] Fwd Diagnoses Coronary artery disease involving [place] coronary artery of [place] heart without angina pectoris I25.10 Coronary Disease-Associated Artery/Lesion type: [place] artery [place] vs. transplanted heart: [place] heart Associated angina: without angina Accelerated hypertension I10
[2024-08-10 20:25] LABS: Glucose Point of Care 272 mg/dL (70-110)
[2024-08-10] MEDS: insulin glargine 100 units/1 mL 45 UNIT SUBCUT (21:20)
[2024-08-11] VITALS (11 sets, daily range): BP systolic 109–172; BP diastolic 40–90; PULSE 80–118; RESP 17–24; TEMP 36.9–37.2; O2SAT 92–97
[2024-08-11 00:14] LABS: Bilirubin Urine Negative (Negative); Blood Urine Negative (Negative); Glucose Urine UA Negative (Normal); Ketones Urine 1+ (Negative); Leukocyte Esterase Urine 2+ (Negative); Nitrate Urine Negative (Negative); Protein Urine 1+ (Negative); Urine Appearance Cloudy (CLEAR); Urine Color Dark Yellow (Yellow)
[2024-08-11 00:27] LABS: Add Urine Culture? Yes; Add Urine Microscopic? YES; Bacteria Urine 3+ /hpf; Hyaline Casts Urine 0-4 /lpf; Mucus Urine 1+ /hpf; WBC Urine 15-25 /hpf (0-5)
[2024-08-11 03:52] LABS: Basophils % 0.3 %; Eosinophils # 0.1 10^3/uL (0.0-0.8); Eosinophils % 0.9 %; Hematocrit 31.9 % (36-47); Lymphocytes % 21.5 %; Mean Corpuscular HGB Conc 32.9 g/dL (30-55); Mean Corpuscular Hemoglobin 29.8 pg (27-33); Mean Corpuscular Volume 90.6 fl (85-98); Mean Platelet Volume 10.5 fL (7.4-10.4); Monocytes # 0.7 10^3/uL (0.2-0.9); Monocytes % 7.4 %; Neutrophils # 6.48 10^3/uL (1.8-7.7); Neutrophils % 69.6 %; Nucleated Red Blood Cells % 0 %; Platelet Count 189 10^3/cmm (157-399); Red Blood Count 3.52 10^6/uL (3.85-5.65); White Blood Count 9.31 10^3/uL (3.29-11.43)
[2024-08-11 04:37] LABS: Alanine Aminotransferase 11 U/L (0-33); Albumin Level 3.6 g/dL (3.5-5.2); Alkaline Phosphatase 57 U/L (35-105); Anion Gap 12.7 (5-19); Aspartate Amino Transferase 14 U/L (0-32); Blood Urea Nitrogen 31 mg/dL (8-23); Calcium 9.1 mg/dL (8.5-10.5); Carbon Dioxide 22 mmol/L (22-29); Chloride 109 mmol/L (98-107); Creatinine Clr Calc Pharmacy 30.3774; Globulin 2.2 g/dL (1.3-4.6); Glucose 141 mg/dL (65-115); Osmolality Calculated 299 mOsm/kg (285-295); Potassium 3.7 mmol/L (3.5-5.1); Sodium 140 mmol/L (136-145); Total Bilirubin 0.4 mg/dL (0.15-1.2); Total Protein 5.8 g/dL (6.6-8.7)
[2024-08-11 06:18] LABS: Glucose Point of Care 151 mg/dL (70-110)
[2024-08-11] MEDS: regadenoson 0.4 Mg/5 ml Syringe IVP (07:18)
--- NOTE | 2024-08-11 07:49 | PC.NURSE ---
off unit at the [facility] dept for cardiac stress test.
[2024-08-11] MEDS: cilostazol 100 mg Tablet PO (08:43)
[2024-08-11] MEDS: carvedilol 25 mg Tablet PO (08:43)
[2024-08-11] MEDS: insulin lispro 100 unit/1 mL SUBCUT (08:44)
[2024-08-11] MEDS: amlodipine 5 mg Tablet PO (08:44)
--- NOTE | 2024-08-11 10:30 | PC.NURSE ---
pt is adamant to take her bp meds all at the same time. 0844AM- pt wants to take her amlodipine and wait for her other bp meds. recheck bp after an hour. [id number], pt agreed to take her pletal and coreg and would like to wait on lisinopril again at lunch.
--- NOTE | 2024-08-11 12:42 | PC.NURSE ---
Pt refused her Lisinopril 40 mg. she agreed to take amlodipine, coreg and cilostazol this morning,spacing the meds an hour apart. pt and dgtr is afraid that her bp will bottom down taking all these BP meds at same time. her current BP is 129/72. educated pt on rebound hypertension but pt still refused to take the lisinopril at this time. Hospitalist notified.
--- NOTE | 2024-08-11 13:58 | PM.DCS ---
Discharge Providers Date of Admission: 08/09/24 21:01 Date of Discharge: August 11, 2024 Attending Provider at Admission: Taj Encinas MD Attending Provider at Discharge: Ron Lynch DO Primary Care Provider: Charbel Glez DO Diagnoses at Discharge Discharge Diagnosis (1) CAD (coronary artery disease): Status: Acute Qualifiers: Coronary Disease-Associated Artery/Lesion type: [place] artery [place] vs. transplanted heart: [place] heart Associated angina: without angina Qualified Code(s): I25.10 - Atherosclerotic heart disease of [place] coronary artery without angina pectoris (2) Accelerated hypertension: Status: Acute (3) Anxiety: Status: Acute Reason for Visit Reason for Visit: pain in back, sob, (heart attack in past) Brief History: Carmella Hyatt is a 78 year old female with coronary artery disease and 3 stents 2016has chronically elevated blood pressure. She is says her systolic runs 200 typically and diastolic 105. She was referred to Dr. Diaz and after seeing him got a message from the nurse to start amlodipine 10 mg daily. Patient states she read the side effects of leg swelling and has trouble with leg swelling and diabetes already so did not take it. Patient was having back pain the last couple of days and her daughter who is a home appliance washing machine mechanic had a patient who with on evaluated back pain so the patient came into the emergency department. Patient states she is not stressed out seeing the monitor but she is somewhat anxious and a little bit tearful in discussing this. Patient denies ever taking nifedipine. She is initially adamant that she will take amlodipine. She tells me that clonidine caused her rhythm to go flatline about 10 years ago. She states that her vision darkened with the clonidine but had taken 2 mg at the time. Hospital Course Hospital Course Patient was admitted for accelerated hypertension. Cardiac enzymes were negative. Note patient had not started amlodipine due to fear of leg swelling. In the emergency room she was given hydralazine and clonidine and amlodipine. This was successful lowering her heart rate to be complete stress test was performed. This showed medium sized area of old myocardial infarction versus scarring noted in the basal to mid inferior and inferior lateral wall without thom-infarct ischemia. She did show a 3 times daily ratio elevated which is likely secondary to left ventricular hypertrophy. Long talk with the patient who is fearful of a various side effects is now willing to take the amlodipine. There also seems to be a component of anxiety. There is a anniversary of her son's as well as admitting that she is worried about her daughter and grandchildren. Suggested to start an SSRI. She is somewhat reluctant but willing to address the anxiety component to her hypertension. She will be started on low-dose Paxil. Physical Exam Narrative: No acute distress Heart is regular soft systolic murmur heard best at the left upper sternal border lungs are clear to auscultation abdomen is flat soft nontender nondistended positive bowel sounds extremities no clubbing cyanosis or edema Discharge Data Studies Completed and Pending Completed Studies During Hospitalization Category Date Time Status Cardiac Stress Test MIBI [Sestamibi Stress Test Request Exams 08/10/24 18:19 Draft ] Routine XR chest 1V portable [id number] Stat Exams 08/09/24 17:06 Completed NM [place] perf SPECT r/s* [id number] Routine Nuc Med 08/11/24 18:27 Completed Pending at discharge Category Date Time Status Lipoprotein (a) Routine Lab 08/10/24 03:34 Received Urine Culture Routine Lab 08/10/24 23:50 Received Radiology Impressions Chest X-Ray 08/09/24 17:06 IMPRESSION: No acute findings. Laboratory Results WBC 9.31 10^3/uL (3.29-11.43) 08/11/24 03:33 RBC 3.52 10^6/uL (3.85-5.65) L 08/11/24 03:33 Hgb 10.50 g/dL (11.27-16.99) L 08/11/24 03:33 Hct 31.9 % (36-47) L 08/11/24 03:33 MCV 90.6 fl (85-98) 08/11/24 03:33 MCH 29.8 pg (27-33) 08/11/24 03:33 MCHC 32.9 g/dL (30-55) 08/11/24 03:33 RDW 13.0 % (12.1-15.1) 08/11/24 03:33 Plt Count 189 10^3/cmm (157-399) 08/11/24 03:33 MPV 10.5 fL (7.4-10.4) H 08/11/24 03:33 Neut % (Auto) 69.6 % 08/11/24 03:33 Lymph % (Auto) 21.5 % 08/11/24 03:33 [place] % (Auto) 7.4 % 08/11/24 03:33 Eos % (Auto) 0.9 % 08/11/24 03:33 Baso % (Auto) 0.3 % 08/11/24 03:33 Neut # (Auto) 6.48 10^3/uL (1.8-7.7) 08/11/24 03:33 Lymph # (Auto) 2.0 10^3/uL (0.8-4.8) 08/11/24 03:33 [place] # (Auto) 0.7 10^3/uL (0.2-0.9) 08/11/24 03:33 Eos # (Auto) 0.1 10^3/uL (0.0-0.8) 08/11/24 03:33 Baso # (Auto) 0.0 10^3/uL (0.0-0.1) 08/11/24 03:33 Nucleated RBC % (auto) 0 % 08/11/24 03:33 Nucleated RBCs # 0.0 /100WBC 08/11/24 03:33 PT 13.10 SECONDS (12.1-14.9) 08/09/24 17:19 INR 0.96 (0.8-1.2) 08/09/24 17:19 Sodium 140 mmol/L (136-145) 08/11/24 03:33 Potassium 3.7 mmol/L (3.5-5.1) 08/11/24 03:33 Chloride 109 mmol/L (98-107) H 08/11/24 03:33 Carbon Dioxide 22 mmol/L (22-29) 08/11/24 03:33 Anion Gap 12.7 (5-19) 08/11/24 03:33 BUN 31 mg/dL (8-23) H 08/11/24 03:33 Creatinine 1.4 mg/dL (0.5-0.9) H 08/11/24 03:33 GFR Calculation Not Reportable 08/11/24 03:33 Glucose 141 mg/dL (65-115) H 08/11/24 03:33 POC Glucose 151 mg/dL (70-110) H 08/11/24 06:12 Calculated Osmolality 299 mOsm/kg (285-295) H 08/11/24 03:33 Calcium 9.1 mg/dL (8.5-10.5) 08/11/24 03:33 Total Bilirubin 0.4 mg/dL (0.15-1.2) 08/11/24 03:33 AST 14 U/L (0-32) 08/11/24 03:33 ALT 11 U/L (0-33) 08/11/24 03:33 Alkaline Phosphatase 57 U/L (35-105) 08/11/24 03:33 Troponin T 5th Gen ng/L 16 ng/L (0-10) H 08/10/24 03:34 Troponin T Baseline 13 ng/L (0-10) H 08/09/24 17:19 Troponin T 120 Minute 11.52 ng/L (0-10) H 08/09/24 19:21 Delta Troponin T -1.48 ABS# (0-10) L 08/09/24 19:21 Troponin T Hi Sens 6Hr 8.74 ng/L (0-10) 08/09/24 23:43 Troponin T Hi Sens 6Hr Delta -4.26 ng/L (0-12) L 08/09/24 23:43 C-React Prot High Sens 0.360 mg/dL (0.0-0.3) H 08/10/24 03:34 Total Protein 5.8 g/dL (6.6-8.7) L 08/11/24 03:33 Albumin 3.6 g/dL (3.5-5.2) 08/11/24 03:33 Globulin 2.2 g/dL (1.3-4.6) 08/11/24 03:33 Triglycerides 166 mg/dL (0-150) H 08/10/24 03:34 Cholesterol 180 mg/dL (0-200) 08/10/24 03:34 LDL Cholesterol, Calc 107 mg/dL (50-129) 08/10/24 03:34 HDL Cholesterol 40 mg/dL (60-100) L 08/10/24 03:34 LDL/HDL Ratio 2.68 RATIO (0.00-3.22) 08/10/24 03:34 Cholesterol/HDL Ratio 4.50 mg/dL (0.0-4.40) H 08/10/24 03:34 Lipase 16 U/L (13-60) 08/09/24 17:19 Urine Color Dark yellow (Yellow) A 08/10/24 23:50 Urine Appearance Cloudy (CLEAR) A 08/10/24 23:50 Urine pH 5.0 (5-7) 08/10/24 23:50 Ur Specific [place] 1.020 (1.005-1.030) 08/10/24 23:50 Urine Protein 1+ (Negative) A 08/10/24 23:50 Urine Glucose (UA) Negative (Normal) 08/10/24 23:50 Urine Ketones 1+ (Negative) H 08/10/24 23:50 Urine Blood Negative (Negative) 08/10/24 23:50 Urine Nitrate Negative (Negative) 08/10/24 23:50 Urine Bilirubin Negative (Negative) 08/10/24 23:50 Urine Urobilinogen 1.0 mg/dL (Negative) 08/10/24 23:50 Ur Leukocyte Esterase 2+ (Negative) A 08/10/24 23:50 Urine RBC None /hpf (0-2) 08/10/24 23:50 Urine WBC 15-25 /hpf (0-5) H 08/10/24 23:50 Ur Squamous Epith Cells 5-10 /hpf (0-5) H 08/10/24 23:50 Amorphous Sediment Not Reportable 08/10/24 23:50 Urine Bacteria 3+ /hpf (NONE) H 08/10/24 23:50 Hyaline Casts 0-4 /lpf H 08/10/24 23:50 Urine Mucus 1+ /hpf 08/10/24 23:50 Vitals Last Vital Signs Temp 98.5 F 08/11/24 12:00 Pulse 85 08/11/24 13:35 Resp 20 H 08/11/24 13:35 BP 130/66 08/11/24 13:35 Pulse Ox 93 08/11/24 12:00 O2 Del Method Room Air 08/11/24 12:00 Discharge Plan Discharge Patient Disposition: Home Condition: Stable Prescriptions: New paroxetine HCl [Paxil] 10 mg tablet 10 mg PO .qhs Qty: 30 0RF Continued biotic silver aerosol See Rx Instructions .ROUTE .COMPLEX PRN (Reason: Shortness Of Breath Or Wheezing) Rx Instructions: Use as directed inhaled intranasal as needed. carvedilol 25 mg tablet 25 mg PO BID Qty: 180 1RF Rx Instructions: must administer with a meal/food amlodipine 10 mg tablet 10 mg PO DAILY Qty: 90 3RF turmeric 400 mg Capsule 400 mg PO DAILY cilostazol 100 mg tablet See Rx Instructions .ROUTE .COMPLEX Rx Instructions: TAKE 1 TABLET BY MOUTH 30 MINUTES BEFORE OR TWO HOURS AFTER BREAKFAST AND DINNER TWICE DAILY. insulin glargine [Lantus Solostar U-100 Insulin] 100 unit/mL (3 mL) insulin pen 45 unit SUBCUT BEDTIME polyethylene glycol 3350 [Miralax] 17 gram/dose powder 17 g PO DAILY Qty: 510 0RF Rx Instructions: Take 1 scoop daily while taking pain medications. ondansetron 8 mg tablet,disintegrating 8 mg PO Q6H Qty: 14 0RF Rx Instructions: Take 1/2-1 tab every 6 hours as needed for nausea and vomiting vitamin B complex Tablet 1 tab PO DAILY coenzyme Q10 [CoQ-10] 100 mg Capsule 100 mg PO DAILY Changed lisinopril 40 mg tablet 20 mg PO BID Qty: 90 3RF Discharge Orders: Discharge Order (Routine); Ordered 08/11/24 Ordered By: Ron Lynch Referrals: Charbel Glez DO [Primary Care Provider] - (We have notified your physician's clinic of the need for a follow-up appointment to be scheduled. If you have not heard from them within the next 2 business days, please call them directly. ) Discharge Diet: Cardiac and Low Salt Discharge Activity: Resume usual activity Patient Instructions: Opioid Safety Discharge Attestations Time Spent in Discharge Care*: greater than 30 min Quality Metrics Clinical Quality Measures [ No reported AMI, CVA or VTE this stay] Coding Level of Care Code Acute Code for [facility] Fwd Diagnoses Coronary artery disease involving [place] coronary artery of [place] heart without angina pectoris I25.10 Coronary Disease-Associated Artery/Lesion type: [place] artery [place] vs. transplanted heart: [place] heart Associated angina: without angina Accelerated hypertension I10 Anxiety F41.9
--- NOTE | 2024-08-11 15:29 | PC.NURSE ---
Discharge Note Patient discharged to home via private vehicle accompanied by dgtr. Discharge instructions reviewed with patient and/or hr representative. Instructed pt on her new medication and change dose of her lisinopril. work release provided. 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 notified hospitalist and she advise her to be off work until seen by her pcp. Mobile pharmacy medications and/or prescriptions provided. Belongings/home medications returned.
--- NOTE | 2024-08-11 18:27 | NMCV_ITS ---
NM kalina perf SPECT r/s* [id number] Carmella Hyatt Age: 78 Gender: F : 1945 Exam Date: 08/11/2024 06:37 Ordering Phys: Rosemarie Avelar MD Technologist: MAEGAN Isabel Exam Location: [facility] Indications: CP STRESS TEST Please see separate stress test report in 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 Supine position only as patient was unable to lay prone. SPECT RESULTS Technical Quality: Good Raw Data Analysis: Normal Image Corrections: No attenuation or motion correction applied Summed Stress Score: 0 Summed Rest Score: 1 Summed Difference Score: 0 PERFUSION FINDINGS Medium sized area of persistently decreased tracer uptake noted in the basal to mid inferior and inferolateral wall on both stress and rest images suggestive of old myocardial infarction versus scarring. FUNCTIONAL RESULTS (calculated via Gated SPECT) Stress Image LV EF (%): 84 Stress EDV (mL):57 TID: 1.79 Stress ESV (mL):9 FUNCTIONAL FINDINGS: There is normal left ventricular systolic function. TID ratio is elevated which could be secondary left ventricular hypertrophy/subendocardial ischemia however cannot rule out multivessel coronary artery disease, clinical correlation advised. IMPRESSIONS Medium sized area of old myocardial infarction versus scarring noted in the basal to mid inferior and inferolateral wall without thom-infarct ischemia. EKG segment will be documented separately Everette Marks MD (Electronically Signed) Final Date: 11 August 2024 08:57 S
[2024-08-14 19:30] LABS: Lipoprotein (a) 68 nmol/L (<75)
== END 2024-08-11 15:27 | disposition home or self-care (01) ==
LOC: ER 21:08 → CSU 21:38
PROVIDERS: Emergency Medicine; Student in an Organized Health Care Education/Training Program; Admitting Provider Internal Medicine; Emergency Provider Emergency Medicine; PCP Electrodiagnostic Medicine; Visit Provider Internal Medicine
DX: I25.10 Atherosclerotic heart disease of native coronary artery without angina pectoris (principal); I10 Essential (primary) hypertension; F41.9 Anxiety disorder, unspecified; Z95.5 Presence of coronary angioplasty implant and graft; M54.9 Dorsalgia, unspecified; I25.2 Old myocardial infarction; E11.9 Type 2 diabetes mellitus without complications; E78.5 Hyperlipidemia, unspecified; Z79.4 Long term (current) use of insulin
CPT/HCPCS: 36415; 36416; 71045; 78452; 80048; 80053; 80061; 81001; 82962; 83690; 83695; 84484; 85025; 85610; 86141; 87077; 87086; 87186; 93005; 93017; 96372; 96374; 96375; 96376; 97116; 97161; 99285; A9500; G0378; J0360; J1650; J1815; J2785

== ENCOUNTER 2024-08-15 06:36 | Outpatient (CLI) | payer MEDICARE, OTHER, SELFPAY ==
--- NOTE | 2024-08-15 06:43 | US_ITS ---
WS: [id number] RENAL ULTRASOUND HISTORY: Hydronephrosis COMPARISON: 12/24/2021 TECHNIQUE: 2-D and color Doppler imaging of the kidney submitted. Right kidney: 9.6 cm x 4.3 cm x 4.7 cm. Cortex: 1.0 cm Normal echogenicity with no hydronephrosis or mass. Left kidney: 9.6 cm x 4.7 cm x 5.0 cm. Cortex: 1.0 cm LEFT kidney is poorly visualized. There is a cystic structure centrally and is thought to be a parape lvic cyst which has been previously described. Cyst measures 2.3 x 2.4 x 2.5 cm. No increased vascula rity. No solid mass. Aorta: Normal. Urinary Bladder: Nondistended. US/US renal BI* [id number] IMPRESSION: 1. No hydronephrosis or solid renal mass. 2. Central LEFT renal cyst is probably a parapelvic cyst. No increased vascula rity or solid component.
== END 2024-08-15 06:37 | disposition home or self-care (01) ==
LOC: RAD 06:37
PROVIDERS: PCP Electrodiagnostic Medicine; Visit Provider Nurse Practitioner Family
DX: N28.1 Cyst of kidney, acquired (principal)
CPT/HCPCS: 76770

== ENCOUNTER → 2025-01-12 14:18 | Outpatient (BNVA) | payer MEDICARE, OTHER, SELFPAY | PROVIDERS: PCP Electrodiagnostic Medicine; Visit Provider Internal Medicine | DX: I25.10 Atherosclerotic heart disease of native coronary artery without angina pectoris (principal); I25.5 Ischemic cardiomyopathy; I10 Essential (primary) hypertension; E78.5 Hyperlipidemia, unspecified; E11.9 Type 2 diabetes mellitus without complications; Z79.4 Long term (current) use of insulin; Z87.891 Personal history of nicotine dependence | CPT/HCPCS: 99214 ==

== ENCOUNTER 2025-02-19 16:10 | Emergency (ER) | payer MEDICARE, OTHER, SELFPAY ==
[2025-02-19 16:21] VITALS: BP 205/103; PULSE 99; TEMP 36.8; O2SAT 99; BMI 27.4
--- NOTE | 2025-02-19 16:46 | CTR_ITS ---
PROCEDURE INFORMATION: Exam: CT Cervical Spine Without Contrast Exam date and time: 02/19/2025 5:14 PM Age: 79 years old Clinical indication: Injury or trauma; Fall; Blunt trauma TECHNIQUE: Imaging protocol: Computed tomography of the cervical spine without contrast. Radiation optimization: All CT scans at this facility use at least one of these dose optimization techniques: automated exposure control; mA and/or kV adjustment per patient size (includes targeted exams where dose is matched to clinical indication); or iterative reconstruction. COMPARISON: CR XR cervical spine 3V* [id number] 12/09/2021 1:21 PM RADIATION DOSE METRICS: Total DLP (mGy-cm): 192 FINDINGS: Bones/joints: The cervical vertebral body heights are maintained. Normal alignment. Moderate to severe disc space narrowing at C5-C6 and C6-C7. C2-C3: No significant disc bulge or herniation. No severe spinal canal stenosis. No significant neuroforaminal narrowing. C3-C4: No significant disc bulge or herniation. No severe spinal canal stenosis. No significant neuroforaminal narrowing. C4-C5: No significant disc bulge or herniation. No severe spinal canal stenosis. No significant neuroforaminal narrowing. C5-C6: Broad-based disc osteophyte complex with mild central canal stenosis. Moderate left neuroforaminal narrowing secondary to uncovertebral and facet hypertrophy. C6-C7: Broad-based disc osteophyte complex with mild central canal stenosis. Mild left neuroforaminal narrowing secondary to uncovertebral and facet hypertrophy. C7-T1: No significant disc bulge or herniation. No severe spinal canal stenosis. No significant neuroforaminal narrowing. Lungs: Lung apices are normal. Soft tissues: Bilateral carotid bulb calcifications. Prominent heterogeneous thyroid gland with underlying nodules. Thyroid gland would be better assessed with thyroid ultrasound if clinically warranted. CT/CT cervical spin wo con* [id number] IMPRESSION: No acute bony abnormality. If symptoms persist, consider further evaluation with MRI, if there are no contraindications to obtaining a MRI scan. COMMENTS: Consistent with the [employer]'s Incidental Findings Committee white paper (J Am Marvin Radiol 2015): In patients aged 35 years and older with an incidental thyroid nodule equal to or greater than 1.[address], MRI or extrathyroidal US, further evaluation with dedicated thyroid US is recommended for patients with normal life expectancy and without comorbidities. For smaller nodules without suspicious features, no further evaluation or follow up is recommended.
--- NOTE | 2025-02-19 16:46 | CTR_ITS ---
PROCEDURE INFORMATION: Exam: CT Head Without Contrast Exam date and time: 02/19/2025 5:14 PM Age: 79 years old Clinical indication: Injury or trauma; Fall; Blunt trauma (contusions or hematomas); Without loss of consciousness TECHNIQUE: Imaging protocol: Computed tomography of the head without contrast. Radiation optimization: All CT scans at this facility use at least one of these dose optimization techniques: automated exposure control; mA and/or kV adjustment per patient size (includes targeted exams where dose is matched to clinical indication); or iterative reconstruction. COMPARISON: CT head wo con* [id number] 12/09/2021 2:06 PM RADIATION DOSE METRICS: Total DLP (mGy-cm): 1094.1 FINDINGS: Brain: Encephalomalacia is seen involving the medial inferior right frontal lobe. No acute confluent lobar ischemic infarct. No acute intracranial hemorrhage. Cerebral ventricles: The ventricles and sulci are normal in size and shape for the patient's stated age. Paranasal sinuses: No fluid levels. Mastoid air cells: Visualized mastoid air cells are well aerated. Bones: No acute calvarial fracture. Soft tissues: Visualized soft tissues are unremarkable. CT/CT head wo con* [id number] IMPRESSION: No acute intracranial abnormality. If symptoms persist, consider further evaluation with MRI, if there are no contraindications to obtaining a MRI scan.
--- NOTE | 2025-02-19 16:46 | CTR_ITS ---
PROCEDURE INFORMATION: Exam: CT Thoracic Spine Without Contrast Exam date and time: 02/19/2025 5:19 PM Age: 79 years old Clinical indication: Injury or trauma; Fall; Blunt trauma (contusions or hematomas) TECHNIQUE: Imaging protocol: Computed tomography of the thoracic spine without contrast. Radiation optimization: All CT scans at this facility use at least one of these dose optimization techniques: automated exposure control; mA and/or kV adjustment per patient size (includes targeted exams where dose is matched to clinical indication); or iterative reconstruction. COMPARISON: CT cervical spin wo con* [id number] 02/19/2025 5:14 PM RADIATION DOSE METRICS: Total DLP (mGy-cm): 455.6 FINDINGS: Bones/joints: There is mild central superior endplate depression at T11 which is chronic, visualized on 06/30/[address] No anterior wedging deformity. No acute lucent fracture lines visualized. No destructive osseous lesions are seen. Spinal cord: No severe central canal or neural foraminal stenosis demonstrated by CT. Soft tissues: Unremarkable. CT/CT thoracic spin wo con* [id number] IMPRESSION: 1. Mild central superior endplate depression at T12 is chronic. 2. No acute thoracic spinal injury demonstrated by CT.
--- NOTE | 2025-02-19 16:47 | W.ED.HEATRA ---
HPI - Head Injury General: Chief complaint: Head Injury Stated complaint: fall, hit head on tree, neck and back pain Time Seen by Provider: 02/19/25 16:38 Source: patient Mode of arrival: ambulatory Limitations: no limitations History of Present Illness: 79-year-old female states she was walking her dog tripped and hit a tree states she hit her head, jammed her head down into her neck and is having neck and upper spine pain as well denies loss conscious does have a headache rates her pain a 6 out of 10. Denies any other injuries Associated symptoms: Reports neck pain; Deny nausea or vomiting Related Data Home Medications ?Medication ?Instructions ?Recorded ?Confirmed turmeric 400 mg capsule 400 mg PO DAILY 02/23/21 01/12/25 biotic silver See Rx Instructions .Route 05/12/23 01/12/25 .COMPLEX PRN Shortness Of Breath Or Wheezing coenzyme Q10 100 mg capsule 100 mg PO DAILY 01/16/24 01/12/25 (CoQ-10) vitamin B complex 1 tab PO DAILY 01/16/24 01/12/25 cilostazol 100 mg tablet See Rx Instructions .Route .COMPLEX 06/30/24 01/12/25 insulin glargine 100 unit/mL (3 45 unit SUBCUT BEDTIME 06/30/24 01/12/25 mL) subcutaneous pen (Lantus Solostar U-100 Insulin) Previous Rx's ?Medication ?Instructions ?Recorded carvedilol 25 mg tablet 25 mg PO BID #180 tabs 03/04/24 polyethylene glycol 3350 17 17 g PO DAILY #510 grams 06/30/24 gram/dose oral powder (Miralax) amlodipine 10 mg tablet 10 mg PO DAILY #90 tabs 07/18/24 lisinopril 40 mg tablet 20 mg (1/2 x 40 mg) PO BID #90 tabs 08/11/24 nitroglycerin 0.4 mg sublingual 0.4 mg sublingual Q5M PRN chest 01/12/25 tablet pain #25 tabs Allergies Allergy/AdvReac Type Severity Reaction Status Date / Time ciprofloxacin (From Cipro) Allergy Unknown Verified 02/19/25 16:29 nitrofurantoin (From Allergy Unknown Verified 02/19/25 16:29 Macrobid) Penicillins Allergy Unknown Verified 02/19/25 16:29 Review of Systems Const: Denies: fever(s), chills, body aches or change in appetite Eyes: Denies: blurry vision or eye discomfort ENMT: Denies: throat pain or dental pain Card: Denies: chest pain Resp: Denies: dyspnea GI: Denies: abdominal pain, nausea, vomiting or diarrhea Musc: Reports: neck pain and back pain Skin/Breast: Denies: rash Neuro: Reports: headache(s) PFSH ED PFSH: Medical History PAD (peripheral artery disease) Ischemic cardiomyopathy 05/20/2023: LVEF 60 to 65%, grade 2 diastolic dysfunction CAD (coronary artery disease) Diabetes Dyslipidemia HTN (hypertension) Surgical History S/P cholecystectomy S/P appendectomy S/P hysterectomy Family History Other CAD (coronary artery disease) Cancer Diabetes Social History Smoking and tobacco/nicotine status: former use of tobacco/nicotine Second hand smoke exposure: Yes Alcohol intake: never Substance/Drug Use: never Lives independently: Yes Household members: none Marital status: Single Current occupational status: employed Pets and animals: No Do you think of yourself as: Straight/Heterosexual Current gender identity: Female Physical Exam Const: COMMON NORMALS: no acute distress, patient oriented x3 and healthy appearing HENMT: COMMON NORMALS: normocephalic and atraumatic HEAD & SCALP: normocephalic and atraumatic Eye: COMMON NORMALS: conjunctivae normal CONJUNCTIVA: Yes conjunctivae normal Neck/C-Spine: COMMON NORMALS: full ROM and supple Chest: COMMONS NORMALS: normal inspection of the chest Resp: COMMON NORMALS: normal respiratory effort Cardio: COMMON NORMALS: regular rate and No murmurs present (Cardio) RATE: regular rate Back/Pelvis: OTHER: tenderness along thoracic spine Extremity: COMMON NORMALS: normal to inspection and full ROM Neuro: COMMON NORMALS: patient oriented x3, moves all extremities and no focal motor deficits Psych: COMMON NORMALS: mental status grossly normal, Normal thought process present and cooperative THOUGHT PROCESS: Normal thought process present Skin: COMMON NORMALS: no rashes or lesions noted and no wounds GENERAL SKIN EXAM: no rashes or lesions noted Course Vital Signs: Vital signs: Vital Signs Temperature 98.3 F 02/19/25 16:21 Pulse Rate 99 02/19/25 16:21 Blood Pressure 205/103 02/19/25 16:21 Pulse Oximetry 99 02/19/25 16:21 Oxygen Delivery Me thod Room Air 02/19/25 16:21 MDM - Head Injury Medcial Decision Making Patient presents here with closed head injury along with neck back pain imaging here is negative she is well-appearing here she stable for discharge follow-up PCP return if worsening. Medical Records I reviewed the patient's medical records. Lab Data Radiology Impressions Cervical Spine CT 02/19/25 16:46 IMPRESSION: No acute bony abnormality. If symptoms persist, consider further evaluation with MRI, if there are no contraindications to obtaining a MRI scan. COMMENTS: Consistent with the [employer]'s Incidental Findings Committee white paper (J Am Marvin Radiol 2015): In patients aged 35 years and older with an incidental thyroid nodule equal to or greater than 1.[address], MRI or extrathyroidal US, further evaluation with dedicated thyroid US is recommended for patients with normal life expectancy and without comorbidities. For smaller nodules without suspicious features, no further evaluation or follow up is recommended. Head CT 02/19/25 16:46 IMPRESSION: No acute intracranial abnormality. If symptoms persist, consider further evaluation with MRI, if there are no contraindications to obtaining a MRI scan. Thoracic Spine CT 02/19/25 16:46 IMPRESSION: 1. Mild central superior endplate depression at T12 is chronic. 2. No acute thoracic spinal injury demonstrated by CT. All radiology interpretation(s) finalized by discharge Discharge Plan Discharge Patient Disposition: Home Clinical Impression: Closed head injury, Back pain Condition: Stable Prescriptions: No Action biotic silver aerosol See Rx Instructions .ROUTE .COMPLEX PRN (Reason: Shortness Of Breath Or Wheezing) Rx Instructions: Use as directed inhaled intranasal as needed. nitroglycerin 0.4 mg tablet, sublingual 0.4 mg sublingual Q5M PRN (Reason: chest pain) Qty: 25 2RF Rx Instructions: do not exceed 3 doses per episode carvedilol 25 mg tablet 25 mg PO BID Qty: 180 1RF Rx Instructions: must administer with a meal/food amlodipine 10 mg tablet 10 mg PO DAILY Qty: 90 3RF turmeric 400 mg Capsule 400 mg PO DAILY cilostazol 100 mg tablet See Rx Instructions .ROUTE .COMPLEX Rx Instructions: TAKE 1 TABLET BY MOUTH 30 MINUTES BEFORE OR TWO HOURS AFTER BREAKFAST AND DINNER TWICE DAILY. insulin glargine [Lantus Solostar U-100 Insulin] 100 unit/mL (3 mL) insulin pen 45 unit SUBCUT BEDTIME polyethylene glycol 3350 [Miralax] 17 gram/dose powder 17 g PO DAILY Qty: 510 0RF Rx Instructions: Take 1 scoop daily while taking pain medications. 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
[2025-02-19] MEDS: naproxen 500 mg Tablet PO (17:35)
[2025-02-19 18:12] VITALS: BP 188/98; PULSE 94; O2SAT 95
== END 2025-02-19 18:12 | disposition home or self-care (01) ==
PROVIDERS: Emergency Provider Emergency Medicine; PCP Electrodiagnostic Medicine
DX: S09.8XXA Other specified injuries of head, initial encounter (principal); M54.9 Dorsalgia, unspecified; Z79.4 Long term (current) use of insulin; Z87.891 Personal history of nicotine dependence; E11.9 Type 2 diabetes mellitus without complications; E78.5 Hyperlipidemia, unspecified; I25.10 Atherosclerotic heart disease of native coronary artery without angina pectoris; I10 Essential (primary) hypertension; W01.0XXA Fall on same level from slipping, tripping and stumbling without subsequent striking against object, initial encounter
CPT/HCPCS: 70450; 72125; 72128; 99284; J9999

== ENCOUNTER 2025-03-13 16:58 | Inpatient (IN) | payer MEDICARE, OTHER, SELFPAY ==
[2025-03-13] VITALS (13 sets, daily range): BP systolic 115–160; BP diastolic 71–97; PULSE 100–122; RESP 16; TEMP 36.7; O2SAT 92–96; BMI 24.9; BMI 25.1
--- NOTE | 2025-03-13 17:00 | XRR_ITS ---
PROCEDURE INFORMATION: Exam: XR Chest Exam date and time: 03/13/2025 5:15 PM Age: 79 years old Clinical indication: Other: Confusion; Additional info: Cxr TECHNIQUE: Imaging protocol: Radiologic exam of the chest. Views: 1 view. COMPARISON: CR XR chest 1V portable [id number] 08/09/2024 5:18 PM FINDINGS: Lungs: Unremarkable. No consolidation or mass. Pleural spaces: Unremarkable. No pleural effusion. No pneumothorax. Heart/Mediastinum: Unremarkable. No cardiomegaly. Bones/joints: Unremarkable. XR/XR chest 1V portable [id number] IMPRESSION: No acute findings.
--- NOTE | 2025-03-13 17:09 | CTR_ITS ---
PROCEDURE INFORMATION: Exam: CT Head Without Contrast Exam date and time: 03/13/2025 5:26 PM Age: 79 years old Clinical indication: Altered mental status/memory loss; Confusion or disorientation; Additional info: AMS TECHNIQUE: Imaging protocol: Computed tomography of the head without contrast. Radiation optimization: All CT scans at this facility use at least one of these dose optimization techniques: automated exposure control; mA and/or kV adjustment per patient size (includes targeted exams where dose is matched to clinical indication); or iterative reconstruction. COMPARISON: CT head wo con* [id number] 02/19/2025 5:14 PM RADIATION DOSE METRICS: Total DLP (mGy-cm): 993.58 FINDINGS: Brain: Normal. No hemorrhage. Unremarkable white matter. No mass effect or acute infarct. Cerebral ventricles: No ventriculomegaly. No midline shift. Paranasal sinuses: Visualized sinuses are unremarkable. No fluid levels. Mastoid air cells: Visualized mastoid air cells are well aerated. Bones: Unremarkable. No acute fracture. Soft tissues: Unremarkable. CT/CT head wo con* [id number] IMPRESSION: No acute intracranial abnormality.
--- NOTE | 2025-03-13 17:14 | W.ED.AMS ---
HPI - Altered Mental Status General: Chief Complaint: Altered Mental Status Stated Complaint: dr stiles, confusion Time Seen by Provider: 03/13/25 16:59 Source: patient Mode of arrival: ambulatory Limitations: no limitations History of Present Illness: 79-year-old female who states she has been having some increased confusing some word finding difficulty since Thursday. Spoke to daughter on the phone as well states that she has not been her normal self since Thursday. Patient here is able to tell me the year where she lives in her name but does seem to struggle to find words at times and repeats herself. Did have a fall with a head injury on Mother's Day was cleared at that time. Denies any headaches currently no fevers Related Data Home Medications ?Medication ?Instructions ?Recorded ?Confirmed turmeric 400 mg capsule 400 mg PO DAILY 02/23/21 01/12/25 biotic silver See Rx Instructions .Route 05/12/23 01/12/25 .COMPLEX PRN Shortness Of Breath Or Wheezing coenzyme Q10 100 mg capsule 100 mg PO DAILY 01/16/24 01/12/25 (CoQ-10) vitamin B complex 1 tab PO DAILY 01/16/24 01/12/25 cilostazol 100 mg tablet See Rx Instructions .Route .COMPLEX 06/30/24 01/12/25 insulin glargine 100 unit/mL (3 45 unit SUBCUT BEDTIME 06/30/24 01/12/25 mL) subcutaneous pen (Lantus Solostar U-100 Insulin) Previous Rx's ?Medication ?Instructions ?Recorded carvedilol 25 mg tablet 25 mg PO BID #180 tabs 03/04/24 polyethylene glycol 3350 17 17 g PO DAILY #510 grams 06/30/24 gram/dose oral powder (Miralax) amlodipine 10 mg tablet 10 mg PO DAILY #90 tabs 07/18/24 lisinopril 40 mg tablet 20 mg (1/2 x 40 mg) PO BID #90 tabs 08/11/24 nitroglycerin 0.4 mg sublingual 0.4 mg sublingual Q5M PRN chest 01/12/25 tablet pain #25 tabs Allergies Allergy/AdvReac Type Severity Reaction Status Date / Time ciprofloxacin (From Cipro) Allergy Unknown Verified 02/19/25 16:29 nitrofurantoin (From Allergy Unknown Verified 02/19/25 16:29 Macrobid) Penicillins Allergy Unknown Verified 02/19/25 16:29 Review of Systems Const: Denies: fever(s) or chills Eyes: Denies: blurry vision or eye discomfort ENMT: Denies: throat pain or dental pain Card: Denies: chest pain Resp: Denies: dyspnea GI: Denies: abdominal pain, nausea, vomiting or diarrhea : Denies: dysuria Musc: Denies: neck pain or back pain Skin/Breast: Denies: rash Neuro: Reports: confusion; Denies: headache(s) PFSH ED PFSH: Medical History PAD (peripheral artery disease) Ischemic cardiomyopathy 05/20/2023: LVEF 60 to 65%, grade 2 diastolic dysfunction CAD (coronary artery disease) Diabetes Dyslipidemia HTN (hypertension) Surgical History S/P cholecystectomy S/P appendectomy S/P hysterectomy Family History Other CAD (coronary artery disease) Cancer Diabetes Social History Smoking and tobacco/nicotine status: former use of tobacco/nicotine Second hand smoke exposure: Yes Alcohol intake: never Substance/Drug Use: never Lives independently: Yes Household members: none Marital status: Single Current occupational status: employed Pets and animals: No Do you think of yourself as: Straight/Heterosexual Current gender identity: Female Physical Exam Const: COMMON NORMALS: patient oriented x3 HENMT: COMMON NORMALS: normocephalic and atraumatic HEAD & SCALP: normocephalic and atraumatic Eye: COMMON NORMALS: Equal, round and reactive pupils present and EOMs intact bilaterally PUPIL: Yes Equal, round and reactive pupils present Neck/C-Spine: COMMON NORMALS: full ROM and supple Chest: COMMONS NORMALS: normal inspection of the chest Resp: COMMON NORMALS: normal respiratory effort, No retractions, No use of accessory muscles and clear to auscultation bilaterally AUSCULTATION: clear to auscultation bilaterally Cardio: COMMON NORMALS: regular rate, regular rhythm and No murmurs present (Cardio) RATE: regular rate RHYTHM: regular rhythm Extremity: COMMON NORMALS: normal to inspection and full ROM Neuro: COMMON NORMALS: patient oriented x3, moves all extremities and no focal motor deficits CRANIAL NERVES: Yes CN normal except as noted MOTOR EXAM: 5/5 motor strength present throughout OTHER: Has some word finding difficulty and repeats her words at times no slurred speech Psych: COMMON NORMALS: mental status grossly normal, Normal thought process present and cooperative THOUGHT PROCESS: Normal thought process present Skin: COMMON NORMALS: no rashes or lesions noted and no wounds GENERAL SKIN EXAM: no rashes or lesions noted Course Vital Signs: Vital signs: Vital Signs Temperature 98.1 F 03/13/25 17:01 Pulse Rate 108 H 03/13/25 18:30 Respiratory Rate 16 03/13/25 17:01 Blood Pressure 130/80 03/13/25 18:30 Pulse Oximetry 94 03/13/25 18:30 Oxygen Delivery Me thod Room Air 03/13/25 18:30 MDM - Altered Mental Status Medical Decision Making Patient presents here with some confusion altered mental status head CT here is normal we will admit for observation. Medical Records I reviewed the patient's medical records. Lab Data I reviewed the patient's lab results. 03/13/25 18:54 03/13/25 18:54 Radiology Impressions Chest X-Ray 03/13/25 17:00 IMPRESSION: No acute findings. Head CT 03/13/25 17:09 IMPRESSION: No acute intracranial abnormality. Laboratory Results WBC 2.62 10^3/uL (3.29-11.43) L 03/13/25 18:54 RBC 4.40 10^6/uL (3.85-5.65) 03/13/25 18:54 Hgb 13.50 g/dL (11.27-16.99) 03/13/25 18:54 Hct 40.1 % (36-47) 03/13/25 18:54 MCV 91.1 fl (85-98) 03/13/25 18:54 MCH 30.7 pg (27-33) 03/13/25 18:54 MCHC 33.7 g/dL (30-55) 03/13/25 18:54 RDW 12.5 % (12.1-15.1) 03/13/25 18:54 Plt Count 163 10^3/cmm (157-399) 03/13/25 18:54 MPV 10.7 fL (7.4-10.4) H 03/13/25 18:54 Neut % (Auto) 53.9 % 03/13/25 18:54 Lymph % (Auto) 30.9 % 03/13/25 18:54 Randolph % (Auto) 13.7 % 03/13/25 18:54 Eos % (Auto) 0.0 % 03/13/25 18:54 Baso % (Auto) 1.1 % 03/13/25 18:54 Neut # (Auto) 1.41 10^3/uL (1.8-7.7) L 03/13/25 18:54 Lymph # (Auto) 0.8 10^3/uL (0.8-4.8) 03/13/25 18:54 Randolph # (Auto) 0.4 10^3/uL (0.2-0.9) 03/13/25 18:54 Eos # (Auto) 0.0 10^3/uL (0.0-0.8) 03/13/25 18:54 Baso # (Auto) 0.0 10^3/uL (0.0-0.1) 03/13/25 18:54 Nucleated RBC % (auto) 0 % 03/13/25 18:54 Nucleated RBCs # 0.0 /100WBC 03/13/25 18:54 PT 13.90 SECONDS (12.1-14.9) 03/13/25 18:54 INR 1.00 (0.8-1.2) 03/13/25 18:54 Sodium 136 mmol/L (136-145) 03/13/25 18:54 Potassium 3.9 mmol/L (3.5-5.1) 03/13/25 18:54 Chloride 104 mmol/L (98-107) 03/13/25 18:54 Carbon Dioxide 21 mmol/L (22-29) L 03/13/25 18:54 Anion Gap 14.9 (5-19) 03/13/25 18:54 BUN 28 mg/dL (8-23) H 03/13/25 18:54 Creatinine 1.0 mg/dL (0.5-0.9) H 03/13/25 18:54 GFR Calculation Not Reportable 03/13/25 18:54 Glucose 147 mg/dL (65-115) H 03/13/25 18:54 Calculated Osmolality 290 mOsm/kg (285-295) 03/13/25 18:54 Calcium 9.6 mg/dL (8.5-10.5) 03/13/25 18:54 Total Bilirubin 0.4 mg/dL (0.15-1.2) 03/13/25 18:54 AST 41 U/L (0-32) H 03/13/25 18:54 ALT 39 U/L (0-33) H 03/13/25 18:54 Alkaline Phosphatase 96 U/L (35-105) 03/13/25 18:54 Total Protein 6.7 g/dL (6.6-8.7) 03/13/25 18:54 Albumin 3.9 g/dL (3.5-5.2) 03/13/25 18:54 Globulin 2.8 g/dL (1.3-4.6) 03/13/25 18:54 TSH 4.12 uIU/mL (0.27-4.20) 03/13/25 18:54 Urine Color Yellow (Yellow) 03/13/25 18:20 Urine Appearance Clear (CLEAR) 03/13/25 18:20 Urine pH 5.0 (5-7) 03/13/25 18:20 Ur Specific [place] 1.022 (1.005-1.030) 03/13/25 18:20 Urine Protein Trace (Negative) A 03/13/25 18:20 Urine Glucose (UA) Negative (Normal) 03/13/25 18:20 Urine Ketones Trace (Negative) 03/13/25 18:20 Urine Blood 1+ (Negative) A 03/13/25 18:20 Urine Nitrate Negative (Negative) 03/13/25 18:20 Urine Bilirubin Negative (Negative) 03/13/25 18:20 Urine Urobilinogen 1.0 mg/dL (Negative) 03/13/25 18:20 Ur Leukocyte Esterase Negative (Negative) 03/13/25 18:20 Urine RBC 0-2 /hpf (0-2) 03/13/25 18:20 Urine WBC 0-5 /hpf (0-5) 03/13/25 18:20 Ur Squamous Epith Cells 0-5 /hpf (0-5) 03/13/25 18:20 Amorphous Sediment Not Reportable 03/13/25 18:20 Urine Bacteria None seen /hpf (NONE) 03/13/25 18:20 Hyaline Casts 10.73 /lpf 03/13/25 18:20 All radiology interpretation(s) finalized by discharge EKG Data EKG 1: I personally reviewed and interpreted this EKG as follows: EKG interpretation date: 03/13/25 EKG interpretation time: 17:35 Interpretation: sinus tach hr [address] elevation qrs 85 qtc 380 Discharge Plan Discharge Patient Disposition: Admitted As Inpatient Clinical Impression: Altered mental status Condition: Stable Coding Level of Care Code ED [employer] Wendy NIH stroke score NIHSS Level Of Consciousness - 1a: 0 Level Of Consciousness Questions - 1b: Both Correct Level Of Consciousness Commands - 1c: Both Correct Best Gaze - 2: Normal Visual Wiggins - 3: No Visual Loss Facial Palsy - 4: Normal Motor Arm Right - 5: No Drift Motor Arm Left - 5: No Drift Motor Leg Right - 6: No Drift Motor Leg Left - 6: No Drift Limb Ataxia - 7: Absent Sensory - 8: Normal Best Language - 9: No Aphasia Dysarthia - 10: Normal Extinction And Inattention - 11: 0 Score Total Score: 0
--- NOTE | 2025-03-13 17:35 | ECG_ITS ---
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 Measurements Intervals [place] Rate: 110 P: 75 NC: 198 QRS: 6 QRSD: 85 T: 74 QT: 315 QTc: 426 Interpretive Statements SINUS TACHYCARDIA POSSIBLE ANTERIOR MYOCARDIAL INFARCTION , OF INDETERMINATE AGE [30 ms Q WAVE IN V3/V4, OR R < 0.2 mV IN V4] Compared to ECG 08/10/2024 00:40:05 Myocardial infarct finding now present Sinus rhythm no longer present First degree AV block no longer present T-wave abnormality no longer present Electronically Signed On 03-14-2025 11:35:56 CDT by Milton Diaz M.D. [email or web address] [id number]
[2025-03-13 18:39] LABS: Bilirubin Urine Negative (Negative); Blood Urine 1+ (Negative); Glucose Urine UA Negative (Normal); Ketones Urine Trace (Negative); Leukocyte Esterase Urine Negative (Negative); Nitrate Urine Negative (Negative); Protein Urine Trace (Negative); Specific Gravity, Urine 1.022 (1.005-1.030); Urine Appearance Clear (CLEAR); Urine Color Yellow (Yellow)
[2025-03-13 18:44] LABS: Add Urine Microscopic? YES; Bacteria Urine None Seen /hpf; Hyaline Casts Urine 10.73 /lpf; RBC Urine 0-2 /hpf (0-2); Squamous Epithelial Cell Urine 0-5 /hpf (0-5); WBC Urine 0-5 /hpf (0-5)
[2025-03-13 18:55] LABS: UA Slide Review UA Slide Review Perf
[2025-03-13 18:57] LABS: Add Urine Culture? No
[2025-03-13 19:25] LABS: Basophils % 1.1 %; Hematocrit 40.1 % (36-47); Lymphocytes # 0.8 10^3/uL (0.8-4.8); Lymphocytes % 30.9 %; Mean Corpuscular HGB Conc 33.7 g/dL (30-55); Mean Corpuscular Hemoglobin 30.7 pg (27-33); Mean Corpuscular Volume 91.1 fl (85-98); Mean Platelet Volume 10.7 fL (7.4-10.4); Monocytes # 0.4 10^3/uL (0.2-0.9); Monocytes % 13.7 %; Neutrophils # 1.41 10^3/uL (1.8-7.7); Neutrophils % 53.9 %; Nucleated Red Blood Cells % 0 %; Platelet Count 163 10^3/cmm (157-399); Red Cell Distribution Width 12.5 % (12.1-15.1); White Blood Count 2.62 10^3/uL (3.29-11.43)
[2025-03-13 19:50] LABS: Alanine Aminotransferase 39 U/L (0-33); Albumin Level 3.9 g/dL (3.5-5.2); Alkaline Phosphatase 96 U/L (35-105); Anion Gap 14.9 (5-19); Aspartate Amino Transferase 41 U/L (0-32); Blood Urea Nitrogen 28 mg/dL (8-23); Calcium 9.6 mg/dL (8.5-10.5); Carbon Dioxide 21 mmol/L (22-29); Chloride 104 mmol/L (98-107); Creatinine Clr Calc Pharmacy 41.2099; Globulin 2.8 g/dL (1.3-4.6); Glucose 147 mg/dL (65-115); Osmolality Calculated 290 mOsm/kg (285-295); Potassium 3.9 mmol/L (3.5-5.1); Sodium 136 mmol/L (136-145); Thyroid Stimulating Hormone 4.12 uIU/mL (0.27-4.20); Total Bilirubin 0.4 mg/dL (0.15-1.2); Total Protein 6.7 g/dL (6.6-8.7)
[2025-03-13 21:56] LABS: Glucose Point of Care 119 mg/dL (70-110)
[2025-03-14] VITALS (17 sets, daily range): BP systolic 126–193; BP diastolic 65–90; PULSE 79–103; RESP 16–20; TEMP 36.5–37.1; O2SAT 91–95
--- NOTE | 2025-03-14 03:28 | MR_ITS ---
WS: [id number] MRI BRAIN WITH AND WITHOUT CONTRAST HISTORY: Weakness with change in mental status COMPARISON: None available. TECHNIQUE: Multiplanar imaging performed through the brain with MultiHance MultiHance 14 mL. ml's IV. No acute infarcts are seen. Peña-white matter differentiation is well preserved. Mild central and peripheral atrophy. Mild small vessel disease. Minimal progression of small vessel disease since the prior exam. No significant hippocampal atrophy. No susceptibility artifacts or prior lacunar infarcts. Ventricles and extra-axial spaces are normal. Clivus and pituitary gland are normal. Visualized posterior fossa and brainstem are also normal. Postcontrast images are negative for masses or vascular malformations. Dural venous sinuses are normal. Paranasal sinuses: Large mucous retention cyst in the RIGHT maxillary sinus. Mastoid air cells: Normal. Calvarium and scalp: Normal. MR/MR head wo/w con [id number] IMPRESSION: 1. No acute infarct. 2. Mild central and peripheral atrophy and small vessel disease. Minimal progr ession since 2013. 3. No enhancing masses or vascular malformation. 4. No hippocampal atrophy.
--- NOTE | 2025-03-14 03:30 | USCV_ITS ---
Olena Carmella Age: 79 Gender: F : 1945 Exam Date: 03/14/2025 04:07 Ordering Phys: Duyen Aleman MD Technologist: TYLER Exam Location: [facility] [place] Indication: acute stroke BP: 143 / 72 HR: 94 Rhythm: Sinus Technical Quality: Adequate MEASUREMENTS (Male / Female) Normal Values 2D ECHO LV Diastolic Diameter PLAX 3.4 cm 4.2 - 5.9 / 3.9 - 5.3 cm IVS Diastolic Thickness 1.1 cm 0.6 - 1.0 / 0.6 - 0.9 cm IVS Systolic Thickness 1.3 cm LVPW Diastolic Thickness 1.0 cm 0.6 - 1.0 / 0.6 - 0.9 cm LVPW Systolic Thickness 1.6 cm LVOT Diameter 1.6 cm LV Ejection Fraction 2D Teich 64.3 % LV Ejection Fraction MOD 4C 52.8 % LV Ejection Fraction MOD 2C 62.6 % LV Ejection Fraction 2C AL 69.3 % LA Diameter 3.0 cm Aorta at Sinotubular Diameter 2.8 cm IVC Diameter 1.4 cm M-MODE LA Ao Ratio MM 1.1 AV Cusp Separation MM 1.7 cm DOPPLER AV Peak Velocity 129.0 cm/s LVOT Peak Velocity 84.0 cm/s AV Area Cont Eq vti 1.5 cm squared AV Area Cont Eq pk 1.3 cm squared MV Peak Velocity 128.0 cm/s MV Area PHT 4.8 cm squared Mitral E to A Ratio 0.7 TR Peak Velocity 254.0 cm/s TR Peak Gradient 25.8 mmHg TV Peak E Velocity 59.0 cm/s PV Peak Velocity 79.0 cm/s FINDINGS Left Ventricle Left ventricle is normal in size. LV systolic function is normal with EF of 60-65%. No regional wall motion abnormalities are seen. Grade 1 diastolic dysfunction Right Ventricle Normal in size and function Right Atrium Normal in size Left Atrium Normal in size Mitral Valve Structurally normal mitral valve. Mild mitral regurgitation. Aortic Valve Aortic valve is thickened. No significant stenosis or regurgitation. Tricuspid Valve Insufficient TR jet to calculate RVSP Pulmonic Valve Not well visualized Pericardium Small pericardial effusion seen. Aorta Normal in size IVC Appears to be normal CONCLUSIONS LV systolic function is normal with EF of 60-65% Grade 1 diastolic dysfunction Mild mitral regurgitation Small pericardial effusion Milton Diaz MD (Electronically Signed) Final Date: 14 March 2025 10:18 S
[2025-03-14] MEDS: sodium chloride 0.9% 1,000 ML 75 ML IV ×2 (04:00→16:58)
[2025-03-14 06:06] LABS: Basophils % 1.5 %; Eosinophils % 0.4 %; Hematocrit 38.6 % (36-47); Lymphocytes # 1.1 10^3/uL (0.8-4.8); Lymphocytes % 39.8 %; Mean Corpuscular HGB Conc 33.2 g/dL (30-55); Mean Corpuscular Hemoglobin 30.2 pg (27-33); Mean Platelet Volume 10.9 fL (7.4-10.4); Monocytes # 0.5 10^3/uL (0.2-0.9); Monocytes % 17.3 %; Neutrophils # 1.08 10^3/uL (1.8-7.7); Neutrophils % 40.6 %; Nucleated Red Blood Cells % 0 %; Platelet Count 149 10^3/cmm (157-399); Red Blood Count 4.24 10^6/uL (3.85-5.65); Red Cell Distribution Width 12.6 % (12.1-15.1); White Blood Count 2.66 10^3/uL (3.29-11.43)
[2025-03-14] MEDS: heparin 5,000 unit/mL INJ 1 mL 5000 UNIT SUBCUT ×2 (06:06→16:58)
[2025-03-14 06:28] LABS: Alanine Aminotransferase 35 U/L (0-33); Albumin Level 3.6 g/dL (3.5-5.2); Alkaline Phosphatase 92 U/L (35-105); Anion Gap 13.9 (5-19); Aspartate Amino Transferase 36 U/L (0-32); Blood Urea Nitrogen 23 mg/dL (8-23); Calcium 9.4 mg/dL (8.5-10.5); Carbon Dioxide 20 mmol/L (22-29); Chloride 107 mmol/L (98-107); Chol HDL Ratio 5.68 mg/dL (0.0-4.40); Cholesterol 159 mg/dL (0-200); Creatinine Clr Calc Pharmacy 50.1211; Globulin 2.9 g/dL (1.3-4.6); Glucose 129 mg/dL (65-115); HDL Cholesterol 28 mg/dL (60-100); LDL Cholesterol Calculated 100 mg/dL (50-129); LDL HDL Ratio 3.57 RATIO (0.00-3.22); Osmolality Calculated 289 mOsm/kg (285-295); Phosphorus 2.7 mg/dL (2.5-4.5); Potassium 3.9 mmol/L (3.5-5.1); Sodium 137 mmol/L (136-145); Total Bilirubin 0.4 mg/dL (0.15-1.2); Total Protein 6.5 g/dL (6.6-8.7); Triglycerides 154 mg/dL (0-150)
[2025-03-14 06:32] LABS: Estmated Average Glucose 160; Hemoglobin A1C 7.2 % (4.0-6.0)
--- NOTE | 2025-03-14 06:39 | P.HP_ITS ---
Providers/Chief Complaint 2 Admitting Physician: Duyen Aleman MD----- patient was seen before 12 midnight Primary Care Provider: Charbel Glez DO Chief Complaint: dr stiles, confusion History of Present Illness Carmella Hyatt is a 79 year old female with medical history significant for high blood pressure diabetes who had presented to the emergency room upon being directed because of confusion. Patient was able to tell her own medical history upon my evaluation of this patient. She understood that she was getting confused but does not know why. Patient only knew that she went to sleep on Thursday and slept all through into Thursday about 2 days of sleeping weak tired did not have any energy to do anything. Patient was evaluated in the emergency room CT of the brain and CTA of the head and neck were unremarkable for any large vessel occlusion. All other workup including laboratory studies and urinalysis were unremarkable for any suspicion of infection. Patient does have history of cardiovascular risk factors. This being said workup for CVA was entertained. Patient weakness was generalized with a very soft to weakness on the left side upper and lower than the right. Emergency room doctor had consulted neurology who will be following up with the patient today. Neurology recommendation is to get MRI this morning and get an echocardiogram and this has been ordered and pending. The area no sign of infection anywhere. NIH was 0. Patient be observation be evaluated and be supported with PT OT and plan for a safe discharge when patient is able. Diarrhea no infection. Follow- up the results of MRI and echocardiogram Review of Systems 2 Narrative: System review upon 10 organ review with entirely unremarkable except for patient trying to recollect as to what is going on patient able to tell on story. Patient able to manage herself lives alone with daughter living next-door. Medications/Allergies Home Medications ?Medication ?Instructions ?Recorded ?Confirmed ?Last Taken ?Type turmeric 400 mg capsule 400 mg PO DAILY 02/23/2101/0306/29/24 History biotic silver See Rx Instructions .Route 0 05/12/23 01/12/25 Unknown History .COMPLEX PRN Shortness Of Breath Or Wheezing coenzyme Q10 100 mg capsule 100 mg PO DAILY 01/16/24 0 01/12/25 06/29/24 History (CoQ-10) vitamin B complex 1 tab PO DAILY 01/16/24 04/01/0306/29/24 History carvedilol 25 mg tablet 25 mg PO BID #180 tabs 03/0401/12/25 06/30/24 Rx cilostazol 100 mg tablet See Rx Instructions .Route . COMPLEX 06/30/24 01/12/25 08/10/24 History insulin glargine 100 unit/mL (3 45 unit SUBCUT BEDTIME 06/30/24 01/12/25 06/29/24 History mL) subcutaneous pen (Lantus Solostar U-100 Insulin) polyethylene glycol 3350 17 17 g PO DAILY #510 grams 0 06/30/24 01/12/25 Unknown Rx gram/dose oral powder (Miralax) amlodipine 10 mg tablet 10 mg PO DAILY #90 tabs 05/0401/12/25 08/10/24 Rx lisinopril 40 mg tablet 20 mg (1/2 x 40 mg) PO BID # 90 tabs 08/11/24 01/12/25 08/09/24 Rx nitroglycerin 0.4 mg sublingual 0.4 mg sublingual Q5M PRN chest 01/12/25 01/12/25 Unknown Rx tablet pain #25 tabs Allergies Allergy/AdvReac Type Severity Reaction Status Date / Time ciprofloxacin (From Cipro) Allergy Unknown Verified 02/19/25 16:29 nitrofurantoin (From Allergy Unknown Verified 02/19/25 16:29 Macrobid) Penicillins Allergy Unknown Verified 02/19/25 16:29 PFSH Acute 2 PFSH: Medical History PAD (peripheral artery disease) Ischemic cardiomyopathy 05/20/2023: LVEF 60 to 65%, grade 2 diastolic dysfunction CAD (coronary artery disease) Diabetes Dyslipidemia HTN (hypertension) Surgical History S/P cholecystectomy S/P appendectomy S/P hysterectomy Family History Other CAD (coronary artery disease) Cancer Diabetes Social History Smoking and tobacco/nicotine status: former use of tobacco/nicotine Second hand smoke exposure: Yes Alcohol intake: never Substance/Drug Use: never Lives independently: Yes Household members: none Marital status: Single Current occupational status: employed Pets and animals: No Do you think of yourself as: Straight/Heterosexual Current gender identity: Female Vitals/I&O/Wt Last Vital Signs Temp 98.2 F 03/14/25 04:36 Pulse 88 03/14/25 06:14 Resp 17 03/14/25 04:36 BP 132/68 03/14/25 06:31 Pulse Ox 92 03/14/25 06:14 O2 Del Method Simple Mask 03/14/25 06:30 03/13/25 03/13/25 03/14/25 14:59 22:59 06:59 Intake Total 200 / 200 100 / 300 Balance 200 / 200 100 / 300 Weight last 48 hrs Weight 65.317 kg Weight 65.317 kg Weight 65.862 kg Physical Exam 2 Narrative: General the patient looks well in no apparent distress awake and alert oriented x 3 and able to relate coherently no speech or language problem HEENT?normocephalic atraumatic Neck?neck is supple Chest?lungs are clear with good breath sounds Abdomen?soft nontender nondistended has good bowel sounds. unremarkable Extremities?intact no edema has good pulses decreased motor strength with subtotal decrease in strength in the left upper and lower at 4/5 compared to the right. Patient verbalizes just feel generally weak. Neurology?essentially nonfocal Data 03/13/25 18:54 03/14/25 05:26 CT Head: My impression: There is no acute process in the imaging of the CT of the head and CTA of the head and neck Follow-up MRI Radiologist's impression: Negative studies A&P Assessment and plan (1) Weakness: In this case he has no sign of infection Must follow-up with MRI for any acute CVA. Follow-up with PT OT consultation for strength ? Have speech to see patient stroke protocol in place await MRI and echocardiogram neurology has been consulted by emergency room department. Otherwise patient continues to stay stable with no new events. -Continue antiplatelets and statin once speech had seen the patient (2) Altered mental status: There is a change in mental status but not actual confusion Patient with some form of brain fogginess and being very weak and tired and very sleepy stroke protocol in place (3) Dehydration: Gentle hydration and follow-up with any electrolytes and optimize accordingly PDMP PDMP Reviewed: Last Reviewed 03/14/25 07:18 by Duyen Aleman MD Attestations 2 Medical Necessity Statement*: I attest that the patient is ideal for observation admission for what looks like a TIA with no sign of infection and nothing else to explain patient sensorium will complete the workup and optimized prior to discharge. Coding Level of Care Code 79921 Diagnoses Weakness R53.1 Altered mental status R41.82 Dehydration E86.0 Time Spent (min) 60
[2025-03-14 07:06] LABS: Slide Review Slide Review Perform
[2025-03-14] MEDS: pantoprazole 40 mg SDV IVP (07:49)
[2025-03-14] MEDS: aspirin 300 mg Supp PR (07:49)
--- NOTE | 2025-03-14 12:11 | P.PN_ITS ---
Subjective 2 Subjective: Seen this morning. She states she feels weak overall and work with physical therapy who told her she did okay. He states she had a stroke quite a few years ago and also had an IA in 2016. She does not have any apparent swallowing issues however she states when she drinks water sometimes she has trouble and struggles with it. Speech therapy evaluation has been ordered. Denies nausea vomiting diarrhea chest pain. Has not had any falls. Did report unsteadiness at home. Vitals/I&O/Wt Last Vital Signs Temp 98.2 F 03/14/25 11:15 Pulse 100 03/14/25 11:15 Resp 20 H 03/14/25 11:15 BP 126/78 03/14/25 11:15 Pulse Ox 94 03/14/25 11:15 O2 Del Method Room Air 03/14/25 11:15 03/13/25 03/14/25 03/14/25 22:59 06:59 14:59 Intake Total 200 / 200 100 / 300 Balance 200 / 200 100 / 300 Weight last 48 hrs Weight 65.317 kg Weight 65.317 kg Weight 65.862 kg Physical Exam 2 Narrative: Alert oriented x 3, resting comfortably in bed. HEENT?normocephalic atraumatic Neck?neck is supple Chest?lungs are clear with good breath sounds Abdomen?soft nontender nondistended has good bowel sounds. unremarkable Extremities?intact no edema has good pulses decreased motor strength with subtotal decrease in strength in the left upper and lower at 4/5 compared to the right. Patient verbalizes just feel generally weak. Neurology?essentially nonfocal Data 03/14/25 05:26 03/14/25 05:26 A&P Assessment and plan (1) Weakness: In this case he has no sign of infection Must follow-up with MRI for any acute CVA. Follow-up with PT OT consultation for strength ? Have speech to see patient stroke protocol in place await MRI and echocardiogram neurology has been consulted by emergency room department. Otherwise patient continues to stay stable with no new events. -Continue antiplatelets and statin once speech had seen the patient (2) Altered mental status: There is a change in mental status but not actual confusion Patient with some form of brain fogginess and being very weak and tired and very sleepy stroke protocol in place (3) Dehydration: Gentle hydration and follow-up with any electrolytes and optimize accordingly Plan 03/14/2025 Unclear etiology of generalized weakness. However nursing staff does report that patient's daughter stated that she has had quite a few tick bites lately and has been pulling ticks off of her body. She has had a stroke in the past and states she has some residual left-sided weakness from it. I think it would be prudent to obtain an MRI brain at this time to rule out another stroke. I would continue on aspirin atorvastatin at this time. I will hold off on Plavix until results of MRI Continue IV fluids 75 cc/h. Check tick panel. Denies any fevers or other symptoms to indicate tickborne illness. Speech therapy evaluation pending Echo pending Hemoglobin A1c 7.2 TSH 4.12, lipid profile completed, LDL 100. UA negative. Further recommendations to be made after MRI results PDMP PDMP Reviewed: Not Reviewed Attestations 2 Medical Necessity Statement*: futher workup needed for gen weakness Diagnoses Weakness R53.1 Altered mental status R41.82 Dehydration E86.0
[2025-03-14] MEDS: gadobenate dimeglumine 20 mL vial 14 ML IV (12:43)
[2025-03-14] MEDS: atorvastatin 40 mg Tablet PO (20:05)
[2025-03-15] VITALS (7 sets, daily range): BP systolic 154–193; BP diastolic 77–82; PULSE 98–110; RESP 16–17; TEMP 36.6–36.9; O2SAT 92–96
[2025-03-15] MEDS: hyDRALAzine 20 mg/mL INJ 1 mL 10 MG IVP (01:31)
[2025-03-15] MEDS: sodium chloride 0.9% 1,000 ML 75 ML IV (04:20)
[2025-03-15] MEDS: heparin 5,000 unit/mL INJ 1 mL 5000 UNIT SUBCUT (05:20)
[2025-03-15 06:01] LABS: Eosinophils % 0.3 %; Hematocrit 36.8 % (36-47); Lymphocytes # 1.3 10^3/uL (0.8-4.8); Lymphocytes % 41.4 %; Mean Corpuscular HGB Conc 33.2 g/dL (30-55); Mean Corpuscular Hemoglobin 29.5 pg (27-33); Mean Corpuscular Volume 88.9 fl (85-98); Monocytes # 0.5 10^3/uL (0.2-0.9); Neutrophils # 1.32 10^3/uL (1.8-7.7); Nucleated Red Blood Cells % 0 %; Platelet Count 136 10^3/cmm (157-399); Red Blood Count 4.14 10^6/uL (3.85-5.65); Red Cell Distribution Width 12.4 % (12.1-15.1); White Blood Count 3.14 10^3/uL (3.29-11.43)
--- NOTE | 2025-03-15 06:14 | P.DS_ITS ---
Discharge Providers Date of Admission: 03/14/25 03:15 Date of Discharge: March 17, 2025 Attending Provider at Admission: Duyen Aleman MD Attending Provider at Discharge: Jud Mercedes MD Primary Care Provider: Charbel Glez DO Diagnoses at Discharge Discharge Diagnosis (1) Weakness: Status: Resolved (2) Altered mental status: Status: Resolved (3) Dehydration: Status: Resolved Reason for Visit Reason for Visit: dr stiles, confusion Hospital Course Hospital Course Patient presented to the hospital with complaint of generalized weakness. There was report of tick bite by daughter. Does have a history of stroke. Once seen in the hospital by the hospitalist patient generally stated that she had generalized weakness which did improve with the day of discharge. MRI was pursued which ruled out acute stroke. Tach panel was ordered. Speech evaluation completed. Patient's daughter at bedside. Discussed patient's care with her in detail. She was on 45 units of Lantus. Hemoglobin A1c 7.2. I recommended we hold Lantus at this time and monitor blood sugars at home. And to follow-up with primary care doctor for adjustment of blood sugar medications. She may be having hypoglycemic episodes at home. During hospitalization patient's blood sugar remained below 170. She did not require lispro. Patient's electrolytes were repleted and she was given IV fluids. She did feel better on day of discharge. All other workup was mainly negative. Physical Exam Narrative: Alert oriented x 3, resting comfortably in bed. HEENT?normocephalic atraumatic Neck?neck is supple Chest?lungs are clear with good breath sounds Abdomen?soft nontender nondistended has good bowel sounds. unremarkable Extremities?intact no edema has good pulses decreased motor strength with subtotal decrease in strength in the left upper and lower at 4/5 compared to the right. Neurology?essentially nonfocal Discharge Data Studies Completed and Pending Completed Studies During Hospitalization Category Date Time Status CT head wo con* [id number] Stat Cat Scan 03/13/25 17:09 Completed XR chest 1V portable [id number] Stat Exams 03/13/25 17:00 Completed MR head wo/w con [id number] Routine MRI 03/14/25 03:28 Completed CV. echo complete* [id number] Routine Ultrasound 03/14/25 03:30 Completed Pending at discharge Category Date Time Status Tick Panel Stat Lab 03/14/25 13:54 Results Radiology Impressions Chest X-Ray 03/13/25 17:00 IMPRESSION: No acute findings. Head CT 03/13/25 17:09 IMPRESSION: No acute intracranial abnormality. Head MRI 03/14/25 03:28 IMPRESSION: 1. No acute infarct. 2. Mild central and peripheral atrophy and small vessel disease. Minimal progression since 2013. 3. No enhancing masses or vascular malformation. 4. No hippocampal atrophy. Laboratory Results WBC 3.14 10^3/uL (3.29-11.43) L 03/15/25 05:16 RBC 4.14 10^6/uL (3.85-5.65) 03/15/25 05:16 Hgb 12.20 g/dL (11.27-16.99) 03/15/25 05:16 Hct 36.8 % (36-47) 03/15/25 05:16 MCV 88.9 fl (85-98) 03/15/25 05:16 MCH 29.5 pg (27-33) 03/15/25 05:16 MCHC 33.2 g/dL (30-55) 03/15/25 05:16 RDW 12.4 % (12.1-15.1) 03/15/25 05:16 Plt Count 136 10^3/cmm (157-399) L 03/15/25 05:16 MPV 11.0 fL (7.4-10.4) H 03/15/25 05:16 Neut % (Auto) 42.0 % 03/15/25 05:16 Lymph % (Auto) 41.4 % 03/15/25 05:16 [place] % (Auto) 15.0 % 03/15/25 05:16 Eos % (Auto) 0.3 % 03/15/25 05:16 Baso % (Auto) 1.0 % 03/15/25 05:16 Neut # (Auto) 1.32 10^3/uL (1.8-7.7) L 03/15/25 05:16 Lymph # (Auto) 1.3 10^3/uL (0.8-4.8) 03/15/25 05:16 [place] # (Auto) 0.5 10^3/uL (0.2-0.9) 03/15/25 05:16 Eos # (Auto) 0.0 10^3/uL (0.0-0.8) 03/15/25 05:16 Baso # (Auto) 0.0 10^3/uL (0.0-0.1) 03/15/25 05:16 Nucleated RBC % (auto) 0 % 03/15/25 05:16 Nucleated RBCs # 0.0 /100WBC 03/15/25 05:16 PT 13.90 SECONDS (12.1-14.9) 03/13/25 18:54 INR 1.00 (0.8-1.2) 03/13/25 18:54 Sodium 136 mmol/L (136-145) 03/15/25 05:16 Potassium 3.9 mmol/L (3.5-5.1) 03/15/25 05:16 Chloride 104 mmol/L (98-107) 03/15/25 05:16 Carbon Dioxide 19 mmol/L (22-29) L 03/15/25 05:16 Anion Gap 16.9 (5-19) 03/15/25 05:16 BUN 14 mg/dL (8-23) 03/15/25 05:16 Creatinine 0.6 mg/dL (0.5-0.9) 03/15/25 05:16 GFR Calculation Not Reportable 03/15/25 05:16 Glucose 170 mg/dL (65-115) H 03/15/25 05:16 POC Glucose 245 mg/dL (70-110) H 03/15/25 11:04 Estimat Average Glucose 166 03/15/25 05:16 Hemoglobin A1c 7.4 % (4.0-6.0) H 03/15/25 05:16 Calculated Osmolality 286 mOsm/kg (285-295) 03/15/25 05:16 Calcium 9.3 mg/dL (8.5-10.5) 03/15/25 05:16 Phosphorus 2.7 mg/dL (2.5-4.5) 03/14/25 05:26 Magnesium 1.7 mg/dL (1.7-2.3) 03/15/25 05:16 Total Bilirubin 0.5 mg/dL (0.15-1.2) 03/15/25 05:16 AST 37 U/L (0-32) H 03/15/25 05:16 ALT 33 U/L (0-33) 03/15/25 05:16 Alkaline Phosphatase 91 U/L (35-105) 03/15/25 05:16 Total Protein 6.5 g/dL (6.6-8.7) L 03/15/25 05:16 Albumin 3.7 g/dL (3.5-5.2) 03/15/25 05:16 Globulin 2.8 g/dL (1.3-4.6) 03/15/25 05:16 Triglycerides 165 mg/dL (0-150) H 03/15/25 05:16 Cholesterol 137 mg/dL (0-200) 03/15/25 05:16 LDL Cholesterol, Calc 77 mg/dL (50-129) 03/15/25 05:16 HDL Cholesterol 27 mg/dL (60-100) L 03/15/25 05:16 LDL/HDL Ratio 2.85 RATIO (0.00-3.22) 03/15/25 05:16 Cholesterol/HDL Ratio 5.07 mg/dL (0.0-4.40) H 03/15/25 05:16 TSH 4.12 uIU/mL (0.27-4.20) 03/13/25 18:54 Urine Color Yellow (Yellow) 03/13/25 18:20 Urine Appearance Clear (CLEAR) 03/13/25 18:20 Urine pH 5.0 (5-7) 03/13/25 18:20 Ur Specific [place] 1.022 (1.005-1.030) 03/13/25 18:20 Urine Protein Trace (Negative) A 03/13/25 18:20 Urine Glucose (UA) Negative (Normal) 03/13/25 18:20 Urine Ketones Trace (Negative) 03/13/25 18:20 Urine Blood 1+ (Negative) A 03/13/25 18:20 Urine Nitrate Negative (Negative) 03/13/25 18:20 Urine Bilirubin Negative (Negative) 03/13/25 18:20 Urine Urobilinogen 1.0 mg/dL (Negative) 03/13/25 18:20 Ur Leukocyte Esterase Negative (Negative) 03/13/25 18:20 Urine RBC 0-2 /hpf (0-2) 03/13/25 18:20 Urine WBC 0-5 /hpf (0-5) 03/13/25 18:20 Ur Squamous Epith Cells 0-5 /hpf (0-5) 03/13/25 18:20 Amorphous Sediment Not Reportable 03/13/25 18:20 Urine Bacteria None seen /hpf (NONE) 03/13/25 18:20 Hyaline Casts 10.73 /lpf 03/13/25 18:20 Lyme Ab (Western Blot) <0.90 index 03/14/25 13:54 Vitals Last Vital Signs Temp 98.3 F 03/15/25 11:50 Pulse 100 03/15/25 11:50 Resp 17 03/15/25 11:50 BP 154/82 03/15/25 11:50 Pulse Ox 92 03/15/25 11:50 O2 Del Method Room Air 03/15/25 11:21 Discharge Plan Discharge Patient Disposition: Home Condition: Stable Prescriptions: Continued biotic silver aerosol See Rx Instructions .ROUTE .COMPLEX PRN (Reason: Shortness Of Breath Or Wheezing) Rx Instructions: Use as directed inhaled intranasal as needed. nitroglycerin 0.4 mg tablet, sublingual 0.4 mg sublingual Q5M PRN (Reason: chest pain) Qty: 25 2RF Rx Instructions: do not exceed 3 doses per episode amlodipine 10 mg tablet 10 mg PO DAILY Qty: 90 3RF turmeric 400 mg Capsule 400 mg PO DAILY cilostazol 100 mg tablet See Rx Instructions .ROUTE .COMPLEX Rx Instructions: TAKE 1 TABLET BY MOUTH 30 MINUTES BEFORE OR TWO HOURS AFTER BREAKFAST AND DINNER TWICE DAILY. lisinopril 40 mg tablet 20 mg PO BID Qty: 90 3RF vitamin B complex Tablet 1 tab PO DAILY solifenacin 5 mg tablet 5 mg PO DAILY polyethylene glycol 3350 [Miralax] 17 gram/dose powder 17 g PO DAILY PRN (Reason: Constipation) Held insulin glargine [Lantus Solostar U-100 Insulin] 100 unit/mL (3 mL) insulin pen 45 unit SUBCUT BEDTIME Hold Instructions: see pcp coenzyme Q10 [CoQ-10] 100 mg Capsule 100 mg PO DAILY Hold Instructions: see pcp Discontinued carvedilol 25 mg tablet 25 mg PO BID PRN (Reason: Blood Pressure) Rx Instructions: must administer with a meal/food Discharge Orders: Discharge Order (Routine); Ordered 03/15/25 Ordered By: Jud Mercedes Referrals: Charbel Glez DO [Primary Care Provider, Family Practice] - 03/21/25 3:50 pm Discharge Diet: Cardiac and Diabetic Discharge Activity: As per PT/OT instructions Patient Instructions: Dehydration (GEN), Weakness (GEN), Altered Mental Status (ED), Opioid Safety Discharge Attestations Time Spent in Discharge Care*: greater than 30 min Quality Metrics Clinical Quality Measures [ No reported AMI, CVA or VTE this stay] Coding Level of Care Code Acute Code for Chg Fwd Diagnoses Weakness R53.1 Altered mental status R41.82 Dehydration E86.0
[2025-03-15 06:26] LABS: Alanine Aminotransferase 33 U/L (0-33); Albumin Level 3.7 g/dL (3.5-5.2); Alkaline Phosphatase 91 U/L (35-105); Blood Urea Nitrogen 14 mg/dL (8-23); Calcium 9.3 mg/dL (8.5-10.5); Carbon Dioxide 19 mmol/L (22-29); Chloride 104 mmol/L (98-107); Creatinine Clr Calc Pharmacy 51.7799; Globulin 2.8 g/dL (1.3-4.6); Glucose 170 mg/dL (65-115); Magnesium 1.7 mg/dL (1.7-2.3); Total Bilirubin 0.5 mg/dL (0.15-1.2); Total Protein 6.5 g/dL (6.6-8.7)
[2025-03-15 06:31] LABS: Chol HDL Ratio 5.07 mg/dL (0.0-4.40); Cholesterol 137 mg/dL (0-200); Estmated Average Glucose 166; HDL Cholesterol 27 mg/dL (60-100); Hemoglobin A1C 7.4 % (4.0-6.0); LDL Cholesterol Calculated 77 mg/dL (50-129); LDL HDL Ratio 2.85 RATIO (0.00-3.22); Triglycerides 165 mg/dL (0-150)
[2025-03-15 06:47] LABS: Anion Gap 16.9 (5-19); Aspartate Amino Transferase 37 U/L (0-32); Osmolality Calculated 286 mOsm/kg (285-295); Potassium 3.9 mmol/L (3.5-5.1); Sodium 136 mmol/L (136-145)
[2025-03-15 06:49] LABS: Slide Review Slide Review Perform
[2025-03-15] MEDS: pantoprazole DR 40 mg Tablet PO (09:42)
--- NOTE | 2025-03-15 10:16 | PC.CHAP ---
Pastoral Care Encounter/Spiritual Assessment Type of Contact [] Declined chicken catcher visit [] Patient/Family/Request visit [] Outpatient visit [] Follow-up visit [] Physician referral [] Code/Alert [] Routine visit [] Staff referral [] Actively dying [] Patient sleeping [] Family support [] [] Out of room [] Palliative care [] [x] Receiving care in room [] Pre-surgical visit [] Trauma [] Long length of stay [] ICU visit [] Other: Relational/Emotional Strength [] Patient feels connected with others/family/visitors/staff [] Distress [] Loneliness/isolation [] Abandonment Spirituality of Patient [] Person of Jovita [] Attends Christian of their Jovita [] Believes in Prayer [] Reads Bible or Mandaeism materials [] There are Spiritual issues to be addressed Supply Chain Program Manager Interventions [] Prayer [] Active listening [] Non-anxious presence [] Spiritual/emotional support [] Crisis/trauma care [] Spiritual counseling [] Bereavement support [] Provided bereavement packet [] Provided Bible/devotional materials [] Provided toy/stuffed animal, coloring book to patient or family member [] Provided Communion [] Anointing/[place] [] Salvation [] Completed spiritual assessment [] Other: Impact on Illness or Injury [] Angry [] Fearful [] Anxious [] Often cries [] Exhaustion [] Unable to work [] Unable to attend denominational [] Unable to walk/stand [] Unable to read [] Unable to drive [] Unable to eat/drink [] Unable to sleep [] Unable to be with family [] Patient intubated [] Other: Summary Time spent with patient
--- NOTE | 2025-03-15 10:28 | PC.SOCIAL ---
IMM Update pg 2 of IMM updated and reviewed w/ patient. Copy provided. Copy dated, initialed and placed in chart.
[2025-03-15 11:51] LABS: Glucose Point of Care 245 mg/dL (70-110)
[2025-03-16 07:42] LABS: Lyme AB Screen <0.90 index
[2025-03-18 18:29] LABS: E. Chaffeensis AB IGG <1:64; E. Chaffeensis AB IGM <1:20
[2025-03-20 20:21] LABS: RMSF IGG DETECTED; RMSF IGM NOT DETECTED
== END 2025-03-15 11:52 | disposition home or self-care (01) | DRG 641 ==
LOC: ER 20:33 → MEDSURG 21:10
PROVIDERS: Admitting Provider Internal Medicine; Emergency Provider Emergency Medicine; PCP Electrodiagnostic Medicine; Visit Provider Internal Medicine
DX: E86.0 Dehydration (principal); R53.1 Weakness; E11.51 Type 2 diabetes mellitus with diabetic peripheral angiopathy without gangrene; I25.5 Ischemic cardiomyopathy; I25.10 Atherosclerotic heart disease of native coronary artery without angina pectoris; E78.5 Hyperlipidemia, unspecified; I10 Essential (primary) hypertension; Z79.4 Long term (current) use of insulin; Z86.73 Personal history of transient ischemic attack (TIA), and cerebral infarction without residual deficits; Z91.81 History of falling; Z87.891 Personal history of nicotine dependence
CPT/HCPCS: 36415; 36416; 70450; 70553; 71045; 80053; 80061; 81001; 82962; 83036; 83735; 84100; 84443; 85025; 85610; 86618; 86666; 86757; 92507; 92523; 92610; 93005; 93306; 96372; 97116; 97161; 97165; 99285; G0378; J0360; J1644; J2470; J7030; J9999

== ENCOUNTER → 2025-07-20 14:44 | Outpatient (BNVA) | payer MEDICARE, OTHER, SELFPAY | PROVIDERS: PCP Electrodiagnostic Medicine; Visit Provider Internal Medicine | DX: R06.09 Other forms of dyspnea (principal); I25.5 Ischemic cardiomyopathy; I25.10 Atherosclerotic heart disease of native coronary artery without angina pectoris; I10 Essential (primary) hypertension; E78.5 Hyperlipidemia, unspecified; E11.9 Type 2 diabetes mellitus without complications; Z87.891 Personal history of nicotine dependence; Z79.4 Long term (current) use of insulin | CPT/HCPCS: 99213 ==

== ENCOUNTER 2025-08-23 20:25 | Emergency (ER) | payer MEDICARE, OTHER, SELFPAY ==
--- OUTSIDE RECORDS SUMMARY | 2024-12-29 07:30 | XMS_ITS ---
Author Organization [facility] Address [address] [place] [address] Care Team Providers Care Lapel Padder Name Role Phone Charbel Glez DO Primary Care Provider Unavail Nash Plunkett Unavailable [phone] Ketan Kasper Unavailable [phone] REASON FOR VISIT 6 mos f/u with MICHAEL Encounters Encounter Location Date Provider Diagnosis [facility] [address] [place] [address] 12/29/2024 Ketan Kasper Plan Of Treatment Next Appt Details Provider Name:Bhaskar valiente, 07/04/2026 09:30:00 AM, [address] [place] [address] [address], [place], [address], Provider Name:Nash gonzales, 07/04/2026 09:45:00 AM, [address] [place] [address] [address], [place], [address], Progress Notes * Carmella HYATTDOB: [birth year] (79 yo F)Acc No.[id number]:12/29/2024 Patient: Jozef dara Carmella Campbell Provider: José Luis Kasper MD :1945 A ge:79 Y S ex:Female Date:12/29/2024 Address:[address] [place], [place] [id number] Pcp:Charbel Glez DO Subjective: * Chief Complaints: * 6 mos f/u with MICHAEL Billing Information: * Procedure Codes: * Electronic signature of Ketan Kasper MD on 08/23/2025 at 08:30 PM 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
--- OUTSIDE RECORDS SUMMARY | 2025-04-19 09:20 | XMS_ITS ---
Author Organization [employer] [employer] Address [address] [place] [address] Care Team Providers Care Risk Control Manager Name Role Phone Charbel Glez Primary Care Provider ALEXSANDER Avila Unavailable [phone] ABBY LONG Unavailable [phone] REASON FOR VISIT 8 wks w/ ua/pvr Procedures Procedure Date Ordered Date Performed Result Body Sit e Bladder Scan 04/19/2025 N/A Encounters Encounter Location Date Provider Diagnosis [employer] [address] [place] [address] 04/19/2025 ABBY LONG OAB (overactive bladder) N32.81 Assessments Encounter Date Diagnosis (ICD Code) Assessment Notes Treatment Notes Treatment Clinical Notes Section Notes 04/19/2025 OAB (overactive bladder) (ICD-10 - N32.81) Plan Of Treatment Pending Test Test Name Order Date Urinalysis, Routine 04/19/2025 Bladder Scan 04/19/2025 Progress Notes * Carmella HYATTDOB: 4 (79 yo F)Acc No.[id number]:04/19/2025 Progress Notes Patient: Jozef BRAGG Carmella Campbell Provider: KEESHA Toro :1945 A ge:79 Y S ex:Female Date:04/19/2025 Address:[address] [place] [id number] Pcp:Charbel Glez Subjective: * Chief Complaints: * 1 . 8 wks w/ ua/pvr. * Medical History: Objective: * Vitals: Assessment: * Assessment: 1. O AB (overactive bladder) - N32.81 Plan: * Treatment: * Procedure Codes: 8 1003 URINALYSIS, AUTO, W/O SCOPE, 52041 US URINE CAPACITY MEASURE * Billing Information: * Visit Code: * Procedure Codes: 69300 URINALYSIS, AUTO, W/O SCOPE. 77333 US URINE CAPACITY MEASURE. * Electronic signature of ABBY LONG APRN on 08/23/2025 at 08:31 PM RELAY TELEGRAPHER Sign off status: Pending * Provider: Meaghan Long APRN-STONECUTTER HAND Date: 0 04/19/2025 Generated for Miroslava sandhu/Higinio/Ed on: 1 10/23/2024 08:31 PM RELAY TELEGRAPHER
--- OUTSIDE RECORDS SUMMARY | 2025-06-14 05:15 | XMS_ITS ---
Author Organization [facility] Address [address] [place] [address] Care Team Providers Care Photonics Technician Name Role Phone Charbel Glez DO Primary Care Provider Unavail Nash Plunkett Unavailable [phone] Ketan Kasper Unavailable [phone] REASON FOR VISIT 6 mos f/u with MICHAEL Encounters Encounter Location Date Provider Diagnosis [facility] [address] [place] [address] 06/14/2025 Ketan Kasper Plan Of Treatment Next Appt Details Provider Name:Bhaskar valiente, 07/04/2026 09:30:00 AM, [address] [place] [address] [address], [place], [address], Provider Name:Nash gonzales, 07/04/2026 09:45:00 AM, [address] [place] [address] [address], [place], [address], Progress Notes * aCrmella HYATTDOB: 4 (79 yo F)Acc No.[id number]:06/14/2025 Patient: Jozef dara Carmella Campbell Provider: José Luis Kasper MD :1945 A ge:79 Y S ex:Female Date:06/14/2025 Address:[address] [place] [address] [facility] Pcp:Charbel Glez DO Subjective: * Chief Complaints: * 6 mos f/u with MICHAEL Billing Information: * Procedure Codes: * Electronic signature of Ketan Kasper MD on 08/23/2025 at 08:30 PM AIRPLANE FLIGHT ATTENDANT Sign off status: Pending * Provider: José Luis Kasper MD Date: 0 06/14/2025 Generated for Miroslava sandhu/Higinio/Ed on: 1 10/23/2024 08:30 PM AIRPLANE FLIGHT ATTENDANT
--- OUTSIDE RECORDS SUMMARY | 2025-06-14 05:30 | XMS_ITS ---
Author Organization [facility] Address [address] [place] [address] Care Team Providers Care Electrician Underground Name Role Phone Charbel Glez DO Primary Care Provider Unavail able Nash Abreu Unavailable [phone] Kimi Rao Unavailable [phone] REASON FOR VISIT 6 mos f/u with MICHAEL Medications Medication SIG (Take, Route, Frequency, Duration) Notes Start Date End Date Status Coreg 25 MG Tablet 1 tablet with food Orally Twice a day Active Cilostazol 100 MG Tablet 1 tablet 30 min utes before or 2 hours after breakfast and dinner Orally Twice a day; Duration: 30 days 04/07/2024 Active Lisinopril 40 MG Tablet 1 tablet Orally Twice a day Active CoQ-10 Active Insulin Aspart 45units 1x Acti ve Turmeric Active Encounters Encounter Location Date Provider Diagnosis [facility] [address] [place] [address] 06/14/2025 Kimi Rao Plan Of Treatment Next Appt Details Provider Name:Bhaskar vlaiente, 07/04/2026 09:30:00 AM, [address] [place] [address] [address], [place], [address], Provider Name:Nash gonzales, 07/04/2026 09:45:00 AM, [address] [place] [address] [address], [place], [address], Progress Notes * Carmella HYATTDOB: 4 (79 yo F)Acc No.[id number]:06/14/2025 Progress Notes Patient: Carmella Kemp Provider: José Luis Rao APRN :1945 A ge:79 Y S ex:Female Date:06/14/2025 Address:[address] [place] [address], [id number] Pcp:Charbel Glez DO Subjective: * Chief Complaints: * 6 mos f/u with MICHAEL * Medications: T akingTurmeric Insulin Aspart , Notes to Pharmacist: 45units 1xCoQ-10 Coreg 25 MG Tablet 1 tablet with food Orally Twice a day Lisinopril 40 MG Tablet 1 tablet Orally Twice a day Cilostazol 100 MG Tablet 1 tablet 30 minutes before or 2 hours after breakfast and dinner Orally Twice a day Taking Turmeric Taking Insulin Aspart , Notes to Pharmacist: 45units 1xTaking CoQ-10 Taking Coreg 25 MG Tablet 1 tablet with food Orally Twice a day Taking Lisinopril 40 MG Tablet 1 tablet Orally Twice a day Taking Cilostazol 100 MG Tablet 1 tablet 30 minutes before or 2 hours after breakfast and dinner Orally Twice a day Billing Information: * Procedure Codes: Care Plan Details* * Electronic signature of AUSTIN Velarde on 08/23/2025 at 08:31 PM HEALTHCARE NETWORK CONSULTANT Sign off status: Pending * Provider: José Luis Rao APRN Date: 0 06/14/2025 Generated for Miroslava sandhu/Higinio/Ed on: 10/23/2024 08:31 PM HEALTHCARE NETWORK CONSULTANT
--- OUTSIDE RECORDS SUMMARY | 2025-07-03 06:30 | XMS_ITS ---
Author Organization [facility] Address [address] [place] [address] Care Team Providers Care Saxophone Assembler Name Role Phone Charbel Glez DO Primary Care Provider Unavail able Nash Abreu Unavailable [phone] Ketan Kasper Unavailable [phone] REASON FOR VISIT 6 month f/u ABIs hx of PVD Encounters Encounter Location Date Provider Diagnosis [facility] [address] [place] [address] 07/03/2025 Ketan Kasper Plan Of Treatment Next Appt Details Provider Name:Bhaskar valiente, 07/04/2026 09:30:00 AM, [address] [place] [address] [address], [place], [address], Provider Name:Nash gonzales, 07/04/2026 09:45:00 AM, [address] [place] [address] [address], [place], [address], Progress Notes * Carmella HYATTDOB: 4 (79 yo F)Acc No.[id number]:07/03/2025 Patient: Jozef Carmella diamond Provider: José Luis Kasper MD :1945 A ge:79 Y S ex:Female Date:07/03/2025 Address:[address] [place], [place] [id number] Pcp:Charbel Glez DO Subjective: * Chief Complaints: * 6 month f/u ABIs hx of PVD Billing Information: * Procedure Codes: * Electronic signature of Ketan Kasper MD on 08/23/2025 at 08:30 PM SERVICE SHOP FOREMAN Sign off status: Pending * Provider: José Luis Kasper MD Date: 0 07/03/2025 Generated for Miroslava sandhu/Higinio/eTransmitting on: 1 10/23/2024 08:30 PM SERVICE SHOP FOREMAN
--- OUTSIDE RECORDS SUMMARY | 2025-08-23 20:30 | XMS_ITS | Encounter Summary ---
Author Organization [facility] Address [address] [place] [address] Care Team Providers Care Clinic Office Assistant Name Role Phone Unavailable Primary Care Provider Unavailabl e Encounter Details Date Type Department Care Team (Latest Contact Info) Description 09/06/2001 Outpatient Historical [facility] [address] [facility] [address] [place] [address] Jose Kumar Jr., MD [address] [facility] [address] [place] [address] HYPERTENSION NOS (Primary Dx); HEADACHE; VACCINE FOR INFLUENZA Social History Tobacco Use Types Packs/Day Years Used Date Smoking Tobacco: Never Assessed Comments Unknown Sex and Gender Information Value Date Recorded Sex Assigned at Not on file Legal Sex Female 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
--- OUTSIDE RECORDS SUMMARY | 2025-08-23 20:30 | XMS_ITS | Encounter Summary ---
Author Organization [facility] Address [address] [place] [address] Care Team Providers Care Stamping Die Maker Name Role Phone Unavailable Primary Care Provider Unavailabl e Encounter Details Date Type Department Care Team (Latest Contact Info) Description 01/26/2002 Outpatient Historical [facility] Internal Medicine-[place] [address] [facility] [address] [place] [address] Jose Kumar Jr., MD [address] [facility] [address] [place] [address] ABDOMINAL PAIN UNSPEC SITE (Primary Dx); REFLUX ESOPHAGITIS; URINARY FREQUENCY Social History Tobacco Use Types Packs/Day Years Used Date Smoking Tobacco: Never Assessed Comments Unknown Sex and Gender Information Value Date Recorded Sex Assigned at Not on file Legal Sex Female 4:01 AM EP TECH Gender Identity Not on file Sexual Orientation Not on file documented as of this encounter Plan of Treatment Not on file documented as of this encounter Visit Diagnoses Diagnosis Abdominal pain, unspecified site- Primary Reflux esophagitis Urinary frequency documented in this encounter
--- OUTSIDE RECORDS SUMMARY | 2025-08-23 20:30 | XMS_ITS | Encounter Summary ---
Author Organization [facility] Address [address] [place] [address] Care Team Providers Care Education Analyst Name Role Phone Unavailable Primary Care Provider Unavailabl e Encounter Details Date Type Department Care Team (Latest Contact Info) Description 05/31/2001 Outpatient Historical [facility] [address] [facility] [address] [place] [address] Kimi Arana MD NO ADDRESS ON FILE Nonspecific abnormal findings on radiological or other examinations of the breast (Primary Dx) Social History Tobacco Use Types Packs/Day Years Used Date Smoking Tobacco: Never Assessed Comments Unknown Sex and Gender Information Value Date Recorded Sex Assigned at Not on file Legal Sex Female 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
--- OUTSIDE RECORDS SUMMARY | 2025-08-23 20:30 | XMS_ITS | Encounter Summary ---
Author Organization [employer] [facility] Address [address] [place] [address] Care Team Providers Care Administrative Job Titles Name Role Phone Unavailable Primary Care Provider Unavailabl e Encounter Details Date Type Department Care Team (Latest Contact Info) Description 09/09/2000 Outpatient Historical [facility] Juanita, Cyrus Brock MD [address] [address] Abdominal pain, right upper quadrant (Primary Dx) Social History Tobacco Use Types Packs/Day Years Used Date Smoking Tobacco: Never Assessed Comments Unknown Sex and Gender Information Value Date Recorded Sex Assigned at Not on file Legal Sex Female 4:01 AM SCIENTIFIC ARTIST Gender Identity Not on file Sexual Orientation Not on file documented as of this encounter Plan of Treatment Not on file documented as of this encounter Visit Diagnoses Diagnosis Abdominal pain, right upper quadrant- Primary documented in this encounter
--- OUTSIDE RECORDS SUMMARY | 2025-08-23 20:30 | XMS_ITS | Patient Health Record ---
Author Organization [facility] Address [address] [place] [address] Care Team Providers Care Electrical Manager Name Role Phone Glez Charbel YUNG Primary Care Provider Unavail able Nash Abreu Unavailable [phone] Kimi Rao Unavailable [phone] Ketan Kasper Unavailable [phone] Deena Cueto Unavailable [phone] Allergies Allergen (clinical drug ingredient) Drug/Non Drug Allergy documented on EMR Reaction Allergy Type Onset Date Status aspirin Aspirin PRUITIS, BURNING, HTN Drug Allergy Active penicillin G Penicillin G Potassium rash Drug Allergy Active acetaminophen Tylenol Unknown Drug Allergy Act debra sertraline Zoloft Unknown Drug Allergy Active Penicillin Unknown Drug Allergy Active Results Component Value Reference Range Notes US Ankle Brachial Pressure I [id number] Reviewed date:07/27/2025 07:23:40 AM Interpretation: Performing Lab: Notes/Report: [id number]=iSite US Ankle Brachial Pressure I [id number] Reviewed date:07/05/2025 01:54:14 PM Interpretation: Performing Lab: Notes/Report: This report was dictated at the [facility] FINAL REPORT Read This report was dict ated at the [facility] Reason For Referral No Information Medications Medication SIG (Take, Route, Frequency, Duration) Notes Start Date End Date Status Turmeric Active Coreg 25 MG Tablet 1 tablet with food Orally Twice a day Not-Taking Cilostazol 100 MG Tablet 1 tablet 30 minutes before or 2 hours after breakfast and dinner Orally Twice a day; Duration: 30 days 04/07/2024 Active CoQ-10 Active Insulin Aspart 45units 1x Acti ve Lisinopril 40 MG Tablet 1 tablet Orally Twice a day Active Social History Tobacco Use: Social History Observation Description Date Details (start date - stop date) Former Smoker NA - NA Social History Drugs/Alcohol: Social Info Question Answer Notes Caffeine Intake: 1-2 cups per day Tobacco Use: Social Info Question Answer Notes Tobacco Control (Standard) Tobacco use: Former smoker How long has it been since you last smoked? Greater than 10 years Additional Details Category Social Info Options Details Drugs/Alcohol: Do you smoke marijuana? De nies Do you drink alcohol? No Problems Problem Type SNOMED Code ICD Code Onset Dates Problem Status W/U Status Risk Notes Problem Essential hypertension (51003941) Essential hypertension (I10) Active confirmed Problem Type II diabetes mellitus without complication (845823271) Type 2 diabetes mellitus without complication, unspecified whether longterm insulin use (E11.9) Active confirmed Problem Intermittent claudication (46652908) Intermittent claudication (I73.9) Active confirmed Problem Peripheral vascular disease (645072972) Peripheral vascular disease (I73.9) Active confirmed Vital Signs Heart Rate 93 /min 07/03/2025 Temperature 98.0 degrees Fahrenheit 07/03/2025 Blood pressure diastolic 80 mm Hg 07/03/2025 Oximetry 97 % 07/03/2025 Weight-kg 65.9 kg 07/03/2025 Blood pressure systolic 130 mm Hg 07/03/2025 Weight 145.28 lbs 07/03/2025 Encounters Encounter Location Date Provider Diagnosis [facility] [address] [place] [address] 07/03/2025 Nash Abreu Peripheral vascular disease I73.9 [facility] [address] [place] [address] 12/29/2024 Deena Cueto Peripheral vascular disease I73.9 [facility] [address] [place] [address] 07/03/[address] [facility] [address] [place] [address] 01/10/2025 [facility] Peripheral vascular disease I73.9 [facility] [address] [place] [address] 12/29/2024 [facility] [address] [place] [address] 07/17/2025 [facility] Peripheral vascular disease I73.9 [facility] [address] [place] [address] 01/03/2025 Ketan Suri Assessments Encounter Date Diagnosis (ICD Code) Assessment Notes Treatment Notes Treatment Clinical Notes Section Notes 12/29/2024 Peripheral vascular disease (ICD-10 - I73.9) Today had a profound increase in values on her ABIs, continue Pletal and follow-up in 6 months as discussed.Patient understand that if they develop lower extremity pain or signs or symptoms of claudication to notify us sooner than this or wound. Patient was educated on signs and symptoms of lower limb ischemia in the ER immediately with the such as blue-black discoloration, also function, blanching, cold extremities, or pain not relieved with rest. Patient denies all these and verbalized understanding. 07/03/2025 Peripheral vascular disease (ICD-10 - I73.9) 79-year-old female with peripheral vascular disease who is been taking Pletal for the last year continues to have good outcomes from the medication with her claudication symptoms.Patient understand that if they develop lower extremity pain or signs or symptoms of claudication to notify us CHARISMA. Patient was educated on signs and symptoms of lower limb ischemia such as blue-black discoloration, loss of function, blanching, cold extremities, or pain not relieved with rest and to go to the ER immediately. Patient denies all these and verbalized understanding. Will continue with a yearly surveillance with ABIs. 07/17/2025 Peripheral vascular disease (ICD-10 - I73.9) 01/10/2025 Peripheral vascular disease (ICD-10 - I73.9) Plan Of Treatment Next Appt Details Provider Name:Bhaskar valiente, 07/04/2026 09:30:00 AM, [address] [place] [address] [address], [place], [address], Provider Name:Nash gonzales, 07/04/2026 09:45:00 AM, [address] [place] [address] [address], [place], [address], Insurance Providers Payer Name Payer Address Payer Phone Subscriber Number Group Number Insured Name Patient Relationship to Insured Coverage Start Date Coverage End Date [place] [address] [address] [place] [phone] [id number] Carmella Hyatt Self - patient is the insured [facility] Insurance [address] [address] [place] [address] [id number] Carmella Hyatt Self - patient is the insured Medical (General) History Medical History History ICD Code Diabetes Heart attack 2 strokes Uterine Cancer Surgical History Surgery Date(Month/Year) Hysterectomy/Uterine Cancer 1999 Tick fever surgery Abscess Stents x3 Hospitalization History Reason Date(Month/Year) ER Visit - kidney stones 06.30.2024 ER Visit - BP High
--- OUTSIDE RECORDS SUMMARY | 2025-08-23 20:30 | XMS_ITS | Encounter Summary ---
Author Organization [employer] [facility] Address [address] [place] [address] Care Team Providers Care Commercial Finance Analyst Name Role Phone Unavailable Primary Care Provider Unavailabl e Encounter Details Date Type Department Care Team (Latest Contact Info) Description 02/01/2002 Outpatient Historical [facility] Nic Marroquin MD [address] [place] [phone] CHEST PAIN NOS (Primary Dx); BACKACHE NOS; Toxic effect venom Social History Tobacco Use Types Packs/Day Years Used Date Smoking Tobacco: Never Assessed Comments Unknown Sex and Gender Information Value Date Recorded Sex Assigned at Not on file Legal Sex Female 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
--- OUTSIDE RECORDS SUMMARY | 2025-08-23 20:30 | XMS_ITS | Encounter Summary ---
Author Organization [employer] [facility] [employer] [facility] [facility] Address [address] [place] [address] Care Team Providers Care Photogeologist Name Role Phone Unavailable Primary Care Provider Unavailabl e Encounter Details Date Type Department Care Team (Latest Contact Info) Description 02/07/2002 Outpatient Historical [facility] Nic Marroquin MD [address] [place] [phone] Toxic effect venom (Primary Dx); VENOMOUS SNAKE BITE Social History Tobacco Use Types Packs/Day Years Used Date Smoking Tobacco: Never Assessed Comments Unknown Sex and Gender Information Value Date Recorded Sex Assigned at Not on file 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
--- OUTSIDE RECORDS SUMMARY | 2025-08-23 20:31 | XMS_ITS | Encounter Summary ---
Author Organization [facility] Address [address] [place] [address] Care Team Providers Care Permit Specialist Name Role Phone Unavailable Primary Care Provider Unavailabl e Encounter Details Date Type Department Care Team (Late st Contact Info) Description 04/13/2000 Outpatient Historical [facility] Breast Center [address] [facility] [address] [place] [address] Kimi Arana MD NO ADDRESS ON FILE Other specified personal history presenting hazards to health(V15.89) (Primary Dx); Screening mammogram for high-risk patient Social History Tobacco Use Types Packs/Day Years Used Date Smoking Tobacco: Never Assessed Comments Unknown Sex and Gender Information Value Date Recorded Sex Assigned at Not on file 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
--- OUTSIDE RECORDS SUMMARY | 2025-08-23 20:31 | XMS_ITS | Encounter Summary ---
Author Organization [employer] [facility] Address [address] [place] [address] Care Team Providers Care Music Arranger Name Role Phone Unavailable Primary Care Provider Unavailabl e Encounter Details Date Type Department Care Team (Latest Contact Info) Description 10/20/2000 Outpatient Historical [facility] Nic Marroquin MD [address] [place] [phone] Other and unspecified angina pectoris (Primary Dx); Chest pain, unspecified; Dyspepsia and other specified disorders of function of stomach; Palpitations Social History Tobacco Use Types Packs/Day Years Used Date Smoking Tobacco: Never Assessed Comments Unknown Sex and Gender Information Value Date Recorded Sex Assigned at Not on file Legal Sex Female 4:01 AM CORROSION ENGINEER Gender Identity Not on file Sexual Orientation Not on file documented as of this encounter Plan of Treatment Not on file documented as of this encounter Visit Diagnoses Diagnosis Other and unspecified angina pectoris- Primary Chest pain, unspecified Dyspepsia and other specified disorders of function of stomach Palpitations documented in this encounter
--- OUTSIDE RECORDS SUMMARY | 2025-08-23 20:31 | XMS_ITS | Encounter Summary ---
Author Organization [facility] Address [address] [place] [address] Care Team Providers Care Landing Signal Officer Name Role Phone Unavailable Primary Care Provider Unavailabl e Encounter Details Date Type Department Care Team (Latest Contact Info) Description 10/08/1998 Outpatient Historical [facility] Breast Center [address] [facility] [address] [place] [address] De Sahu MD NO ADDRESS ON FILE Other sign and symptom in breast (Primary Dx) Social History Tobacco Use Types Packs/Day Years Used Date Smoking Tobacco: Never Assessed Comments Unknown Sex and Gender Information Value Date Recorded Sex Assigned at Not on file Legal Sex Female 4:01 AM SUPERVISING LAW ENFORCEMENT ANALYST Gender Identity Not on file Sexual Orientation Not on file documented as of this encounter Plan of Treatment Not on file documented as of this encounter Visit Diagnoses Diagnosis Other sign and symptom in breast- Primary documented in this encounter
--- OUTSIDE RECORDS SUMMARY | 2025-08-23 20:31 | XMS_ITS | Encounter Summary ---
Author Organization [employer] Address [address] [facility] Attn: Epic Prelude ADT AHSAN PEREIRA [address] Care Team Providers Care Lace Machine Operator Name Role Phone Unavailable Primary Care Provider Unavailabl e Encounter Details Date Type Department Care Team (Late st Contact Info) Description 04/20/2002 Outpatient Historical Ruddy Jones MD [address] [place] [phone] Social History Tobacco Use Types Packs/Day Years Used Date Smoking Tobacco: Never Assessed Comments Unknown Sex and Gender Information Value Date Recorded Sex Assigned at Not on file Legal Sex Female 4:01 AM MACHINE FANCY STITCHER Gender Identity Not on file Sexual Orientation Not on file documented as of this encounter Plan of Treatment Not on file documented as of this encounter Visit Diagnoses Not on filedocumented in this encounter
--- OUTSIDE RECORDS SUMMARY | 2025-08-23 20:31 | XMS_ITS | Encounter Summary ---
Author Organization [employer] [facility] Address [address] [place] [address] Care Team Providers Care Web Press Operator Apprentice Name Role Phone Unavailable Primary Care Provider Unavailabl e Encounter Details Date Type Department Care Team (Latest Contact Info) Description 03/14/2002 Outpatient Historical [facility] Nic Marroquin MD [address] [place] [address] HYPERTENSION NOS (Primary Dx); DIZZINESS AND GIDDINESS; PERS HX OF PAST NONCOMPLIANCE Social History Tobacco Use Types Packs/Day Years Used Date Smoking Tobacco: Never Assessed Comments Unknown Sex and Gender Information Value Date Recorded Sex Assigned at Not on file Legal Sex Female 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
--- OUTSIDE RECORDS SUMMARY | 2025-08-23 20:31 | XMS_ITS | Encounter Summary ---
Author Organization [employer] [facility] Address [address] [place] [address] Care Team Providers Care Label Stamper Name Role Phone Unavailable Primary Care Provider Unavailabl e Encounter Details Date Type Department Care Team (Latest Contact Info) Description 09/23/2000 Outpatient Historical [facility] JuanitaCyrus olivera MD [address] [address] Abdominal pain, right upper quadrant (Primary Dx) Social History Tobacco Use Types Packs/Day Years Used Date Smoking Tobacco: Never Assessed Comments Unknown Sex and Gender Information Value Date Recorded Sex Assigned at Not on file Legal Sex Female 4:01 AM GREY STOCK RECORDER Gender Identity Not on file Sexual Orientation Not on file documented as of this encounter Plan of Treatment Not on file documented as of this encounter Visit Diagnoses Diagnosis Abdominal pain, right upper quadrant- Primary documented in this encounter
--- OUTSIDE RECORDS SUMMARY | 2025-08-23 20:31 | XMS_ITS | Encounter Summary ---
Author Organization [facility] Address [address] [place] [address] Care Team Providers Care Equipment Service Engineer Name Role Phone Unavailable Primary Care Provider Unavailabl e Encounter Details Date Type Department Care Team (Latest Contact Info) Description 09/24/1998 Outpatient Historical [facility] Kvng Aguero, Jose Cannon MD [address] [place] [phone] Abdominal pain, right upper quadrant (Primary Dx) Social History Tobacco Use Types Packs/Day Years Used Date Smoking Tobacco: Never Assessed Comments Unknown Sex and Gender Information Value Date Recorded Sex Assigned at Not on file 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
--- OUTSIDE RECORDS SUMMARY | 2025-08-23 20:31 | XMS_ITS | Encounter Summary ---
Author Organization [facility] Address [address] [place] [address] Care Team Providers Care Qa Specialist Name Role Phone Unavailable Primary Care Provider Unavailabl e Encounter Details Date Type Department Care Team (Latest Contact Info) Description 05/03/1999 Outpatient Historical [facility] Internal Medicine-[facility] [address] [facility] [address] [place] [address] Jose Kumar Jr., MD [address] [facility] [address] [place] [address] Unspecified essential hypertension (Primary Dx) Social History Tobacco Use Types Packs/Day Years Used Date Smoking Tobacco: Never Assessed Comments Unknown Sex and Gender Information Value Date Recorded Sex Assigned at Not on file Legal Sex Female 4:01 AM DIRECTOR OF CATH LAB Gender Identity Not on file Sexual Orientation Not on file documented as of this encounter Plan of Treatment Not on file documented as of this encounter Visit Diagnoses Diagnosis Unspecified essential hypertension- Primary documented in this encounter
--- OUTSIDE RECORDS SUMMARY | 2025-08-23 20:31 | XMS_ITS | Clinical Summary ---
Author Organization [employer] Address [address] [facility] [address] Nievesn: Epic Prelude ADT AHSAN PEREIRA [address] Care Team Providers Care Rn Hedis Name Role Phone Unavailable Primary Care Provider Unavailabl e Immunizations Immunization Administration Dates Next Due Influenza Seasonal Unspecified Formulation IM Social History Tobacco Use Types Packs/Day Years Used Date Smoking Tobacco: Never Assessed Comments Unknown Sex and Gender Information Value Date Recorded Sex Assigned at Not on file Legal Sex Female 4:01 AM CARTOGRAPHY PROFESSOR Gender Identity Not on file Sexual Orientation Not on file Plan of Treatment Health Maintenance Due Date Last Done Comments DTAP/TDAP/TD VACCINES (1 - Tdap) 1962 PNEUMOCOCCAL VACCINE 50+ YEARS (1 of 1 - PCV) 11/30/18 94 ZOSTER VACCINE (1 of 2) 1993 OSTEOPOROSIS SCREENING 2008 RSV VACCINE (60+ or ) (1 - 1-dose 75+ series) 2018 INFLUENZA VACCINE (#1) 2025 09/06/2001 FIT/FOBT Q 1 year Discontinued 11/29/1999 COLORECTAL SCREENING Discontinued 04/20/2002 Colorectal Cancer Screening Discontinued FIT-DNA Q 3 years Discontinued Flex Sig/CT Colonography Q 5 years Discontinued
--- OUTSIDE RECORDS SUMMARY | 2025-08-23 20:31 | XMS_ITS | Encounter Summary ---
Author Organization [employer] [facility] Address [address] [place] [address] Care Team Providers Care Engineering Drafter Name Role Phone Unavailable Primary Care Provider Unavailabl e Encounter Details Date Type Department Care Team (Latest Contact Info) Description 10/21/2000 Outpatient Historical [facility] Mike Rosario NO ADDRESS ON FILE Closed fracture of one or more phalanges of foot (Primary Dx) Social History Tobacco Use Types Packs/Day Years Used Date Smoking Tobacco: Never Assessed Comments Unknown Sex and Gender Information Value Date Recorded Sex Assigned at Not on file Legal Sex Female 4:01 AM PALS NURSE Gender Identity Not on file Sexual Orientation Not on file documented as of this encounter Plan of Treatment Not on file documented as of this encounter Visit Diagnoses Diagnosis Closed fracture of one or more phalanges of foot- Primary documented in this encounter
--- OUTSIDE RECORDS SUMMARY | 2025-08-23 20:31 | XMS_ITS | Data Portability ---
Author Organization [facility]ren [facility] Address [address] [facility] [address] [place] [address] Care Team Providers Care Jewelry Dipper Name Role Phone ALBA SCHAFFER Primary Care Provider Unavailabl e Assessment Encounter Date Assessment Date Assessment LastModified by Organization Details LastModified Time 06/13/2025 06/13/2025 Document scribed by Obi Kilpatrick Combination Worker. I was present during interview and exam. I have reviewed and agree with above documentation . Dr. Alba Schaffer. [email or web address] Not available 06/13/2025 10:59:11 06/21/2025 06/21/2025 Document scribed by Obi Kilpatrick Combination Worker. I was present during interview and exam. I have reviewed and agree with above documentation . Dr. Alba Schaffer. [email or web address] Not available 06/21/2025 14:29:09 06/28/2025 06/28/2025 Document scribed by Obi Kilpatrick Combination Worker. I was present during interview and exam. I have reviewed and agree with above documentation . Dr. Alba Schaffer. [email or web address] Not available 06/28/2025 08:31:32 Plan of Treatment Reminders Order Date Submit Date Provider Last Modified By Organization Details Last Modified Time Details Appointments None recorded. Lab hemoglobin A1C/hemoglo bin total, QN, blood 2024 025 sadie Waterman [facility], [address] [facility], [facility], [place], [address], 07:56:14 CMP, serum or plasma 2024 [address] [facility], [address] [facility], [address], [place], [address], 07:56:14 Referral None recorded. Procedures None recorded. Surgeries None recorded. Imaging None recorded. Medication Orders cephalexin 500 mg capsule [address] [facility], [place], [facility] [place], [address], 08:57:29 MediHoney (honey) 80 % topical gel [address], [address] [place], [address], 07:56:14 Bactrim DS 800 mg-160 mg tablet [address] [facility] [place], [place], [facility] [place], [address], 05:01:19 Patient TargetsNo targets recorded. Patient Instructions Encounter Date Encounter Id Patient Instructions Last Modified By Organization Details Last Modified Time 07/05/2025 [id number] Discussion with patient. Under care of PCP and vascular surgeon for this issue and was seen a couple of days ago and told it is healing fine. She is concerned due to the pain. We discussed things to help with the pain including B12 and foods to promote healing. Discussed exercise to promote circulation. Follow up for worsening with PCP [email or web address] Not available 07/05/2025 18:42:52 Reason for Referral None Reported. Results Created Date Observation Date Name Description Value Unit Range Abnormal Flag Note LastModifiedBy Organization Detail LastModifiedTime 06/13/2006/13/2025 HBA1C hemaglobin A1C 7.7 4.2-6. 5 high Not Available [facility] [address], [place], [address], 06/13/2025 11:57:13 06/13/2006/13/2025 CMP (FEMA LE) glucose 208.0 mg/dL 60.0-9 9.0 high Not Available [facility] [address] [facility] [place], [address], 06/13/2025 15:17:32 06/13/20 25 06/13/2025 CMP (FEMA LE) BUN (blood urea nitrogen) 24.0 mg/dL 10.0-2 6.0 Not Available [facility] [address] [facility], [place], [address], 06/13/2025 15:17:32 06/13/20 25 06/13/2025 CMP (FEMA LE) creatinine (serum) 1.1 mg/dL 0.4-1. 5 Not Available [facility] [address] [facility], [place], [address], 06/13/2025 15:17:32 06/13/20 25 06/13/2025 CMP (FEMA LE) BUN/creatini ne ratio 21.82 ratio Not Available [facility] [address] [facility], [place], [address], 06/13/2025 15:17:32 06/13/20 25 06/13/2025 CMP (FEMA LE) eGFR calculated 50.7 Not Available [facility] [address] [facility], [place], [address], 06/13/2025 15:17:32 06/13/20 25 06/13/2025 CMP (FEMA LE) total protein 8.7 g/dL 6.0-8. 5 high Not Available [facility] [address] [place] [facility], [place], [address], 06/13/2025 15:17:32 06/13/20 25 06/13/2025 CMP (FEMA LE) total bilirubin 0.7 mg/dL 0.2-1. 3 Not Available [facility] [address] [facility], [place], [address], 06/13/2025 15:17:32 06/13/20 25 06/13/2025 CMP (FEMA LE) albumin 5.1 g/dL 3.5-5. 5 Not Available [facility] [address] [facility], [place], [address], 06/13/2025 15:17:32 06/13/20 25 06/13/2025 CMP (FEMA LE) globulin 3.6 calc Not Available [facility] [address] [place] Dam[address] [facility], [place], [address], 06/13/2025 15:17:32 06/13/20 25 06/13/2025 CMP (FEMA LE) AST (SGOT) 38.0 U/L 0.0-46 .0 Not Available [facility] [address] [facility], [place], [address], 06/13/2025 15:17:32 06/13/20 25 06/13/2025 CMP (FEMA LE) altv (SGPT) 23.0 U/L 13.0-6 9.0 normal Not Available [facility] [address] [place] [facility], [place], [address], 06/13/2025 15:17:32 06/13/20 25 06/13/2025 CMP (FEMA LE) A/G ratio 1.4 ratio Not Available [facility] [address] [place] [facility], [place], [address], 06/13/2025 15:17:32 06/13/20 25 06/13/2025 CMP (FEMA LE) ALP phos 80.0 U/L 30.0-1 40.0 normal Not Available [facility] [address] [facility], [place], [address], 06/13/2025 15:17:32 06/13/20 25 06/13/2025 CMP (FEMA LE) calcium 11.0 mg/dL 8.4-10 .5 high Not Available [facility] [address] [facility], [place], [address], 06/13/2025 15:17:32 06/13/20 25 06/13/2025 CMP (FEMA LE) sodium 140.0 mmol/ L 136.0- 145.0 Not Available [facility] [address] [facility] [address], [place], [address], 06/13/2025 15:17:32 06/13/2006/13/2025 CMP (FEMA LE) potassium 4.4 mmol/ L 3.5-5. 1 Not Available [facility] [address] [facility], [place], [address], 06/13/2025 15:17:32 06/13/20 25 06/13/2025 CMP (FEMA LE) chloride 106.0 mmol/ L 98.0-1 10.0 normal Not Available [facility] [address] [facility] [address], [place], [address], 06/13/2025 15:17:32 06/13/20 25 06/13/2025 CMP (FEMA LE) C02 22.0 mmol/ L 22.0-3 1.0 Not Available [facility] [address] [facility] [address], [place], [address], 06/13/2025 15:17:32 06/13/2006/13/2025 CMP (FEMA LE) anion gap 12.0 calc Not Available [facility] [address] [facility] [address], [place], [address], 06/13/2025 15:17:32 06/13/2006/13/2025 CMP (FEMA LE) osmolality 298.4 calc Not Available [facility] [address], [place], [facility], 06/13/2025 15:17:32 Result Notes None recorded. Problems Name Problem SNOMED Code Status Onset Date Resolution Date Notes Provider Name and Address Organization Details Recorded Time Malignant neoplasm of uterus 317002967 Active 2022 Uterine Cancer Gisele Foster [facility], [facility] 4 07:43:20 Bilateral sacroiliac joint pain 280020968204 18722 Active 2022 Alba Schaffer [address], [address] [place] [address] 5, [facility] 3 11:31:36 Mixed urinary incontinen ce 997023754 Active [address], [address], [facility] 5 17:44:19 Essential hypertensi on 36941377 Active [address], [address], [facility] 5 17:44:19 Hyperlipid emia 84867042 Active 2022 Alba Schaffer [address], [address], [facility] 5 17:44:19 Increased frequency of urination 473812508 Active 2022 Alba Schaffer [address], [address], [facility] 3 08:22:27 Active or passive immunizati on Active 2022 Alba Schaffer, [address], [address], [facility] 3 08:32:40 Cellulitis of toe of left foot 616171948009 [address]2539 Active 2022 Alba Schaffer DO [address] [place] [address], [address], [facility] 3 14:02:43 Pain of toe of left foot 582199820974 108 Active 2022 Alba Schaffer [address], [address], [facility] 3 14:02:45 Type 2 diabetes mellitus 21891923 Active 2022 Alba Schaffer [address], [address], [facility] 5 17:44:19 Intermitte nt claudicati on 58238534 Active 2023 Alba Schaffer [address], [address], [facility] 4 09:36:09 Peripheral vascular disease 545701410 Active 2023 Albajoselin Schaffer [address], [address], [facility] 5 17:44:19 Low back pain 415298400 Active 2023 Alba Schaffer [address], [address], [facility] 4 17:58:35 Recurrent urinary tract infection 324894443 Active 2023 Albajoselin Schaffer [address], [address], [facility] 5 17:44:19 Non-alcoho lic fatty liver 871979570 Active 2023 Alba Schaffer [address], [address], [facility] 5 17:44:19 Chronic diarrhea 280104784 Active 2023 Alba Schaffer [address], [address], [facility] 4 08:48:25 Acute thoracic back pain 343665410 Active 2023 Alba Schaffer [address], [address], [facility] 4 17:49:55 Problem Notes None recorded. Procedures Surgical History Date Name Laterality Status Provider Name and Address Organization Details Recorded Time Hysterectomy completed Annabelle Ruiz [facility] 05/13/2024 14:51:34 Imaging Results None recorded. Procedure Notes None recorded. Medical Equipment None Reported. Allergies Allergen ID Allergen Name Allergen Category Reaction Reaction Severity Criticality Documentation Date Start Date Code Code System Note Provider Name and Address Organization Details Recorded Time 2404 Product containin g penicilli n (product) medicatio n rash mild low 02/10/2023 73748 8001 SNOMED Gisele [facility] 4 14:54:32 2405 Zoloft medicatio n other moderate low 02/10/2023 64585 RxNorm allig ator skin Gisele [facility] 4 07:55:54 93466 penicilli n V potassium medicatio n rash Not available Not available 05/09/202332078 5 RxNorm React ion: Rash; Comme nt: Recor ded 11/17 2:53P M by Alice martel, Offic e Visit ; Jose camacho; Kali rodriguez ce: *; ; [facility] 4 14:54:35 68110 aspirin medicatio n itching other rash moderate severe moderate low 05/09/2023 1191 RxNorm Burni ng, HTN [facility] 4 07:55:49 15864 Tylenol medicatio n other moderate low 05/09/202387456 3 RxNorm stool bob es [facility] 4 07:55:52 Medications Name Sig Start Date Stop Date Status Note LastModified by Organization Details LastModified Time cilostazo l 100 mg tablet take ONE tablet BY MOUTH TWICE DAILY active Not Available Not Available No t Available carvedilo l 25 mg tablet Take 1 tablet twice a day by oral route for 90 days. 2023 active Not Available Not Available Not Avai lable doxycycli ne hyclate 100 mg capsule take 1 capsule BY MOUTH TWICE DAILY for 10 days 02/22 completed Not Available Not Available Not Available paroxetin e 10 mg tablet TAKE 1 TABLET BY MOUTH AT BEDTIME active Not Available Not Available No t Available carvedilo l 12.5 mg tablet TAKE 1 TABLET BY MOUTH TWICE DAILY 04/12 completed Not Available Not Available Not Available azithromy justyna 250 mg tablet TAKE 2 TABLETS (500 MG) BY ORAL ROUTE ONCE DAILY FOR 1 DAY THEN 1 TABLET (250 MG) BY ORAL ROUTE ONCE DAILY FOR 4 DAYS 02/22 completed Not Available Not Available Not Available sulfameth oxazole 400 mg-trimet hoprim 80 mg tablet TAKE 1 TABLET BY MOUTH EVERY TWELVE HOURS for 7 days 06/02 completed Not Available Not Available Not Available hydrocodo ne 5 mg-acetam inophen 325 mg tablet TAKE 1 TABLET BY MOUTH EVERY 6 HOURS NEEDED FOR PAIN 07/28 completed Not Available Not Available Not Available prednison e 20 mg tablet Take 1 tablet every day by oral route for 7 days. 02/03 completed Not Available Not Available Not Available metronida zole 500 mg tablet TAKE 1 TABLET BY MOUTH TWICE DAILY for 7 days 06/09 completed Not Available Not Available Not Available ciproflox acin 500 mg tablet TAKE 1 TABLET BY MOUTH EVERY TWELVE HOURS for 7 days 02/22 completed Not Available Not Available Not Available ondansetr on 8 mg disintegr ating tablet dissolve ONE-HALF TO ONE tablet BY MOUTH EVERY 6 HOURS NEEDED FOR NAUSEA AND VOMITING 02/22 completed Not Available Not Available Not Available tamsulosi n 0.4 mg capsule take 1 capsule BY MOUTH EVERY DAY 07/28 completed Not Available Not Available Not Available amlodipin e 10 mg tablet TAKE 1 TABLET BY MOUTH EVERY DAY active Not Available Not Available No t Available doxycycli ne monohydra te 100 mg capsule 09/22 completed Not Available Not Available Not Available cephalexi n 500 mg capsule take 1 capsule BY MOUTH THREE TIMES DAILY for 10 days 07/05 completed Not Available Not Available Not Available nitroglyc tino 0.4 mg sublingua l tablet DISSOLVE 1 TABLET UNDER THE TONGUE EVERY 5 MINUTES NEEDED FOR CHEST PAIN. DO NOT EXCEED A TOTAL OF 3 DOSES IN 15 MINUTES. active Not Available Not Available No t Available lisinopri l 40 mg tablet take 1/2 tablet BY MOUTH TWICE DAILY active Not Available Not Available No t Available cefdinir 300 mg capsule TAKE 1 CAPSULE BY MOUTH TWICE DAILY FOR 10 DAYS 03/12 completed Not Available Not Available Not Available fluticaso ne propionat e 50 mcg/actua tion nasal spray,kyle pension USE 2 SPRAYS IN EACH NOSTRIL EVERY DAY 05/19 completed Not Available Not Available Not Available amoxicill in 875 mg-potass ium clavulana te 125 mg tablet TAKE 1 TABLET BY MOUTH EVERY 12 HOURS 02/10 completed Not Available Not Available Not Available Bactrim DS 800 mg-160 mg tablet Take 1 tablet every 12 hours by oral route for 10 days. 06/22 completed Not Available Not Available Not Available solifenac in 5 mg tablet TAKE 1 TABLET BY MOUTH EVERY DAY active Not Available Not Available No t Available CoQ10 daily active Not Available Not Availa ble Not Available Levemir U-100 Insulin 100 unit/mL subcutane ous solution INJECT 28 UNITS UNDER THE SKIN TWICE DAILY FOR DIABETES 09/22 completed Not Available Not Available Not Available Levemir FlexPen 100 unit/mL (3 mL) solution subcutane ous insulin pen Inject by subcutan eous route for 37 days. 04/12 completed Not Available Not Available Not Available Lantus Solostar U-100 Insulin 100 unit/mL (3 mL) subcutane ous pen inject 45 units SUBCUTAN EOUSLY AT BEDTIME FOR diabetes active Not Available Not Available No t Available ClearLax 17 gram/dose oral powder take ONE SCOOP (17g) EVERY DAY while taking pain medicati ons active Not Available Not Available No t Available MediHoney (honey) 80 % topical gel Apply 1 applicat ion twice a day by topical route. 2024 active Not Available Not Available Not Avai lable Levemir FlexTouch U100 Insulin twice a day 09/22 completed DM/sd; 45580; Recorded 09/08/20 12:24PM by Lindsay Leal (Authori marissa through Alba Schaffer DO), Annotati on/Adden dum; Refill Quantity : 4; Each; Not Available Not Available Not Available Ozempic 0.25 mg or 0.5 mg (2 mg/1.5 mL) subcutane ous pen injector INJECT 0.25MG SUBCUTAN EOUSLY WEEKLY FOR 4 WEEKS, THEN 0.5MG WEEKLY 02/10 completed Not Available Not Available Not Available Rybelsus 3 mg tablet daily 05/19 completed recorded , not sent to pharmacy DM/sd; 36164; Recorded 09/02/20 22 8:41AM by Lindsay Leal (Authori marissa through Alba Schaffer DO), Office Visit; Refill Quantity : 0; Not Available Not Available Not Available Arthritis Pain (diclofen ac) 1 % topical gel APPLY TWO GRAMS TO AFFECTED AREA FOUR TIMES DAILY 04/12 completed Not Available Not Available Not Available Vitals Date Recorded Body height Body mass index (BMI) Body weight Oxygen saturation Oxygen saturation in Arterial blood by Pulse oximetry Heart rate Respiratory rate Body temperature Systolic And Diastolic Provider Name and Address Organization Details Last Updated DateTime 5 162.56 cm 25.7 kg/m2 26845.8 6 g 97 % 97 % 86 /min 16 /min 98.2 [degF] 130/66 mm[Hg] Kristine Mcwilliams [facility] 5 15:59:19 Date Recorded Body height Body mass index (BMI) Body weight Oxygen saturation Oxygen saturation in Arterial blood by Pulse oximetry Heart rate Respiratory rate Systolic And Diastolic Provider Name and Address Organization Details Last Updated DateTime 5 162.56 cm 25.4 kg/m2 73030.0 7 g 97 % 97 % 103 /min 18 /min 138/80 mm[Hg] Renate Fam [facility] 5 10:48:52 Date Recorded Body height Body mass index (BMI) Body weight Oxygen saturation Oxygen saturation in Arterial blood by Pulse oximetry Heart rate Respiratory rate Systolic And Diastolic Provider Name and Address Organization Details Last Updated DateTime 5 162.56 cm 25.1 kg/m2 43480.8 9 g 96 % 96 % 93 /min 18 /min 144/80 mm[Hg] SUMANTH MALONEAGER [facility] 5 14:05:03 Date Recorded Body height Body mass index (BMI) Body weight Oxygen saturation Oxygen saturation in Arterial blood by Pulse oximetry Heart rate Respiratory rate Body temperature Systolic And Diastolic Provider Name and Address Organization Details Last Updated DateTime 5 162.56 cm 24.6 kg/m2 64519.8 1 g 99 % 99 % 71 /min 18 /min 97.9 [degF] 116/70 mm[Hg] Renate Fam [facility] 5 08:27:46 Date Recorded Body height Body mass index (BMI) Body weight Oxygen saturation Oxygen saturation in Arterial blood by Pulse oximetry Heart rate Respiratory rate Body temperature Systolic And Diastolic Provider Name and Address Organization Details Last Updated DateTime 5 162.56 cm 24.5 kg/m2 86995.7 1 g 98 % 98 % 84 /min 16 /min 98.2 [degF] 124/80 mm[Hg] Kristine Mcwilliams [facility] 14:42:36 Social History Question Answer Notes LastModified by Organizat ion Details LastModified Time Tobacco Smoking Status Never Smoker Gisele Foster evelyne [facility] 04/12/2024 14:55:57 Is Your Home Air Conditioned? Yes Information not available 07/28/2024 Do You Have A Basement? Yes Information not available 07/28/2024 Are You Blind Or Do You Have Difficulty Seeing? No Information n ot available 07/28/2024 Are You A Caregiver? No Information not available 07/28/2024 Are You Deaf Or Do You Have Serious Difficulty Hearing? No Information not available 07/28/2024 What Type Of Diet Are You Following? REGULAR Information n ot available 07/28/2024 What Is The Highest Grade Or Level Of School You Have Completed Or The Highest Degree You Have Received? [id number] Information not available 07/28/2024 Do You Have An Electrostatic Air Filter? No Information not available 07/28/2024 Which Of Your Hands Is Dominant? Right Information n ot available 07/28/2024 Do You Work In Healthcare? No Information not available 07/28/2024 Do You Have A Humidifier? No Information not available 07/28/2024 Do You Use Insect Repellent Routinely? Yes Information not available 07/28/2024 Do You Have Moisture Problems In Your Home? No Information not available 07/28/2024 What Was The Date Of Your Most Recent Tobacco Screening? 07/05/2025 [email or web address] Information not available 07/05/2025 Do You Have Any Pets? No Information not available 07/28/2024 Do You Use Sunscreen Routinely? Yes Information not available 07/28/2024 Have You Recently Traveled Abroad? No Information not available 07/28/2024 Do You Have Difficulty Walking Or Climbing Stairs? No Information not available 07/28/2024 Are You Currently In School? No Information not available 07/28/2024 Do You Have Any Dietary Restrictions? No Information not available 07/28/2024 Sex: Unknown Functional Status Question Answer Note LastModified by Organizat ion Details LastModified Time Do you use any illicit or recreational drugs? No [email or web address] Information not available 02/10/2023 Do you or have you ever used any other forms of tobacco or nicotine? No [email or web address] Information not available 02/10/2023 What is your level of alcohol consumption? None [email or web address] Information not available 02/10/2023 Are you currently employed? Yes Information not available 07/28/2024 Do you have transportation difficulties? No Information not available 07/28/2024 Are you able to walk independently without assistance or assistive devices? [email or web address] Information not available 07/28/2024 Do you have difficulty doing errands alone? No Information not available 07/28/2024 Are you able to care for yourself independently? Yes Information not available 07/28/2024 Do you have difficulty dressing, bathing, grooming, or toileting? No Information not available 07/28/2024 What is your exercise level? Occasional Information not available 07/28/2024 Mental Status Question Answer Note LastModified by Organization D etails LastModified Time Do you have difficulty concentrating, remembering or making decisions? No Information no t available 07/28/2024 Family History Nothing Reported. Medical History Condition Response Coronary Artery Disease N Other N Gout N Kidney Stones N Blood Diseases N Hyperthyroidism N Breast Cancer N Blood Transfusion N Depression N Hypothyroidism N Lung Disease N COPD N Defects or Inherited Disease N Developmental or Behavioral Disorders N Breast Problem N Difficulty Swallowing N Anesthesia Complications N Meniere's disease N Anxiety Disorder N Muscle, Joint, or Bone Problems N Vision or Eye Problems N Arthritis N Polyps N Infertility N Cancer N Varicosities N Stroke N Endometriosis N Bladder or Kidney Problems N High Cholesterol N Liver Disease N Fibromyalgia N Headaches N Kidney Disease N Allergies/Hayfever N Heart Problems N Ear or Hearing Problems N Hospitalizations N Thyroid Problems N GI Problems N ADD/ADHD N Skin Problems N Eating Disorder N Anemia N Constipation N Mental Illness N Ovarian Cancer N Diabetes N Bedwetting N Seizures/Epilepsy N Tuberculosis N Eczema N Diverticulitis N Abuse/Domestic Violence N Asthma N Reflux/GERD N Hepatitis N Heart Disease N Pulmonary Embolism N Pre-Eclampsia N Hypertension N Chronic Ear Infections N Osteoporosis N Chicken Pox N Autism Spectrum Disorder (ASD) N Thrombophilias N Gynecological HistoryNo gynecological history recorded. Obstetrics History GPAL:G 0 P 0 0 0 0 Immunizations Vaccine Type Date Status Note Provider Nam e and Address Organization Details Recorded Time Influenza, split virus, trivalent, preservative 3 completed Not Available [facility] 05/09/2023 02:43:45 COVID-19, mRNA, LNP-S, PF, 100 mcg/0.5mL dose or 50 mcg/0.25mL dose 1 completed Renate stubbs [facility] 04/05/2024 16:41:15 COVID-19, mRNA, LNP-S, PF, 100 mcg/0.5mL dose or 50 mcg/0.25mL dose 1 completed Renate stubbs [facility] 04/05/2024 16:41:15 COVID-19, mRNA, LNP-S, PF, 100 mcg/0.5mL dose or 50 mcg/0.25mL dose 2 completed Renate stubbs [facility] 04/05/2024 16:41:15 Influenza, split virus, quadrivalent, PF 3 completed [facility] 09/22/2023 09:38:35 Pneumococcal conjugate PCV20, polysaccharide BSY095 conjugate, adjuvant, PF 4 completed MANAN BASILIO [address] [place] [address], [phone], [facility] 07/28/2024 15:24:13 Past Encounters Encounter ID Performer Location Encounter Start Date Encounter Closed Date Diagnosis/Indication Diagnosis SNOMED-CT Code Diagnosis ICD10 Code Diagnosis IMO Codes Diagnosis Note [id number] Alba Schaffer DO [facility] [address] [place] [phone] 02/10/2023 10:20:59 02/10/2023 19:24:20 Diabetes mellitus 78437597 E11.69 pt started new OTC supplement about 2 wks ago. report glucose staying around 70-90s. but a1c is still above 11. counseled pt on medication usage, specifical ly insulin. pt should not be skippng doses. pt needs to call use and have us adjust medication s.she will continue with levemir 40u bid, as well as her OTC supplement .f/u 4 wks. Bilateral sacroiliac joint pain [id number] 2003033 M53.3 continue with chiropract or twice a week, discussed exercises, handout given. consider SI injections Mixed urin santosh incontinence 736139805 N39.46 I counseled the patient on diagnosis, treatment options, medication s, and expectatio ns. All questions were addressed. pt will limit sugar, improve diabetes, start pelvic floor exercises: handout given and discussed. consider meds. f/[place] 1 [place] [id number] Alba Schaffer DO [facility] [address] [place] [phone] 5 03/12/2023 08:52:36 03/12/2023 09:29:52 Mixed urinary incontinence 219168847 N39.46 improved. pt to work on kegel exercises and diabetes. Diabetes mellitus 851383 09 E11.69 E11.22 continues to improve with supplement s and lantus 40u bid. pt to continue this and diet. f/u 2 mts with repeat a1c prior Bilateral sacroiliac joint pain [id number] 4115286 M53.3 continue with chiropract or twice a week, discussed exercises, handout given. consider SI injections Hyperlipidemia 31754382 E78.5 pt declines medication s. will take OtC supplement s. Essential hypertension 35067605 I10 pt declines medication s again. checking at home some, reports under 140systoli c. pt to continue to monitor. counseled [id number] Alba Schaffer DO [facility] [address] [place] [address] 05/19/2023 08:03:04 05/19/2023 10:36:31 Diabetes mellitus 56778700 E11.69 continue levemir 40u bid. a1c much imrpoved at 6.6 on 05/18/23. pt to work on diet, exericse. f/u 4 mts with labs prior. Essential hypertension 94311717 I10 very high lately. pt only taking the coreg as needed despite my and Dr. Stein's recommenda tions. she reports she is taking the lisinopirl daily. pt has ECHO and another cardiac test tomorrow AM for Dr. Stein. [id number] Alba Schaffer DO [facility] [address] [place] [address] [phone] 5 09/22/2023 08:02:32 09/22/2023 09:10:39 Essential hypertension 87919770 I10 very high lately. pt did not take her bp meds this AM. she will go home, take them, if staying above 170/95, she will f/u with cardiology or go to ER. continue with Dr. Stein. Hyperlipidemia 79696204 E78.5 pt declines medication s. will take OtC supplement s. Increased frequency of urination 734618518 R35.0 Diabetes mellitus 418368 09 E11.69 continue levemir 40u bid. a1c much improved at 6.6 on 05/18/23. pt to work on diet, exercise. labs today. Mixed urin santosh incontinence 804669789 N39.46 not much improved. pt to work on kegel exercises and diabetes. Active or passive immunization 608146635 Z23 I counsled pt on vaccinatio ns. pt given fluvax today as above per pt request. [id number] Alba Schaffer DO [facility] [address] [place] [address] [phone] 5 10/07/2023 12:41:14 10/07/2023 14:20:06 Pain of toe of left foot 2789666402 21613 M79.675 Cellulitis of toe of left foot [id number] 3750990 L03.032 Type 2 camilo betes mellitus 73400173 E11.69 [id number] Alba Schaffer DO [facility] [address] [place] [address] [phone] 5 12/30/2023 08:39:52 12/30/2023 09:20:35 Type 2 diabetes mellitus 32366381 E11.69 I reviewed most recent labs with pt as per above. We reconciled medication s. We discussed diet, exercise, weight management . We discussed routine eye care and foot care. Pt to monitor glucose regularly. a1c very high in dec. repeat labs today.cont inue current medication s for now: continue levemir 40u bid. Cellulitis of toe of left foot [id number] 0262447 L03.032 resolved. Essential hypertension 78990104 I10 improved. continue lisinopril . continue with Dr. Stein. Hyperlipidemia 33182364 E78.5 pt declines medication s. will continue OtC supplement s. Malignant neoplasm of uterus 111112347 C55 hx of. remote. [id number] Alba Schaffer DO [facility] [address] [place] [address] [phone] 5 01/05/2024 15:44:36 01/05/2024 17:26:41 Low back pain 736005690 M54.50 Continue Aleve twice daily. Will send Prednisone to use if not improving. Counseled at her current age we want to avoid muscle relaxers. Type 2 camilo betes mellitus 19805087 E11.69 01/05/24- insurance no longer covering Levemir after 01/11/24, will change to Lantus, she does have Levemir pens at home she will finish. Will write Basaglar 45u at hs. [id number] Alba Schaffer DO [facility] [address] [place] [address] [phone] 5 02/04/2024 08:27:01 02/04/2024 09:38:41 Essential hypertension 18323958 I10 we will keep BP meds the same, bp much improved after being more consistant with taking bp pills. Intermitte nt claudication 36303363 I73.9 will get ABIS. feet on exam today with no concern for vascular compromise at rest in office. but symptoms concerning per hx. Type 2 camilo betes mellitus 99413601 E11.69 02/04/24- Basaglar not covered well, pt to call insurance and find out what long acting insulin is covered,sh e will contact us. 01/05/24- insurance no longer covering Levemir after 01/11/24, will change to Lantus, she does have Levemir pens at home she will finish. Will write Basaglar 45u at hs. [id number] Alba Schfafer DO [facility] [address] [place] [address] [phone] 5 03/08/2024 08:05:58 03/08/2024 11:48:48 Essential hypertension 49793236 I10 03/08/24- counseled go ahead and increase Carvedilol to 25mg BID as per Cardiology for increased BP, continue Lisinopril 40mg daily. Hyperlipidemia 18634927 E78.5 pt declines medication s. will continue OtC supplement s.03/08/24- counseled on cholestero l control significan ce, with PVD, pt not currently wanting to take med, she will consider. Type 2 camilo betes mellitus 03605277 E11.69 03/08/24- glucose improving, continue current tx, f/u late March to repeat A1c. 4- Basaglar not covered well, pt to call insurance and find out what long acting insulin is covered,juancarlos gonzales will contact us. 01/05/24- insurance no longer covering Levemir after 01/11/24, will change to Lantus, she does have Levemir pens at home she will finish. Will write Basaglar 45u at hs. Peripheral vascular disease 020945849 I73.9 03/08/24- reviewed and discussed MICHAEL's performed on 03/02/24: normal resting MICHAEL b/l, abnormal resting TBI b/l, with occlusion of b/l PT arteries. Counseled she has blockages, I want to send her to a Vascular Specialist , she prefers [facility]. Counseled take 81mg Asa to help with blood flow. Not currently taking cholestero l med, she will consider this. Low back pain 669840884 M54.50 Counseled muscle pain and spasm. [id number] Alba Schaffer DO [facility] [address] [place] [address] [phone] 5 04/05/2024 16:31:11 04/05/2024 18:05:09 Essential hypertension 19466724 I10 04/05/24: Improved. Continue carvedilol and lisinopril .03/08/24- counseled go ahead and increase Carvedilol to 25mg BID as per Cardiology for increased BP, continue Lisinopril 40mg daily. Hyperlipidemia 60018934 E78.5 pt declines medication s. will continue OtC supplement s.03/08/24- counseled on cholestero l control significan ce, with PVD, pt not currently wanting to take med, she will consider. Type 2 camilo betes mellitus 72638870 E11.69 04/05/24: Home blood sugars running mid 100s. Patient again declines medication s. We will check A1c and renal function today.03/08- glucose improving, continue current tx, f/u late March to repeat A1c. 4- Basaglar not covered well, pt to call insurance and find out what long acting insulin is covered,sh e will contact us. 01/05/24- insurance no longer covering Levemir after 01/11/24, will change to Lantus, she does have Levemir pens at home she will finish. Will write Basaglar 45u at hs. Peripheral vascular disease 972532150 I73.9 04/05/24: Patient is to keep appointmen t with vascular specialist this week. Continue aspirin and blood pressure medication s.03/08/24- reviewed and discussed MICHAEL's performed on 03/02/24: normal resting MICHAEL b/l, abnormal resting TBI b/l, with occlusion of b/l PT arteries. Counseled she has blockages, I want to send her to a Vascular Specialist , she prefers [facility]. Counseled take 81mg Asa to help with blood flow. Not currently taking cholestero l med, she will consider this. Low back pain 720709652 M54.50 Counseled muscle pain and spasm. [id number] MANAN BASILIO [facility] [address] [place] [address] [phone] 5 04/12/2024 14:48:58 04/12/2024 17:03:36 Dysuria 96002075 R30.0 Acute urin santosh tract infection 965746270 N39.0 UA results reviewed and discussed with pt. We will start antibiotic s. Pt will increase oral fluids and can use cranberry. Return to office with no improvemen t or any problems. Go to ER with severe worsening or severe problems.She gonzales will obtain urine culture [id number] Alba Schaffer DO [facility] [address] [place] [address] [phone] 5 04/27/2024 08:15:29 04/27/2024 10:27:21 Dysuria 69728412 R30.0 Recent urinary tract infection with leukocytos is, culture positive for E. coli, treated with cephalexin . She states her symptoms are not much improved. However her urinalysis is normal and her white blood cell counts are back to normal. We will get repeat culture but hold off on further antibiotic s due to her GI symptoms. Chronic diarrhea 7779058 09 K52.9 More than 3 weeks. With some leakage. This does not appear to be medication or supplement related. She was recently on antibiotic s. She will start completion daily. Consider stool studies if no improvemen t in the next 5 to 7 days. [id number] [facility] [address] [place] [address] [phone] 5 05/13/2024 14:35:38 05/13/2024 18:28:15 Dysuria 23759668 R30.0 Urine dip is normal today. Will send culture and vaginal swab for testing.Wi ll contact patient with results. [id number] Alba Schaffer DO [facility] [address] [place] [address] [phone] 5 06/02/2024 08:27:03 06/02/2024 08:53:58 Recurrent urinary tract infection 672325312 N39.0 treated with bactrim and fagyl on 05/13/24. I reviewed + culture. will repeat UA and culture tocay. Non-alcoho lic fatty liver 540161795 K76.0 known for several years, mild. now with increased pain RUQ, will get US and repeat labs. Chronic diarrhea 2051460 09 K52.9 wit leadage an incontinan ce at times. will get stool studies. counseled [id number] Alba Schaffer DO [facility] [address] [place] [address] [phone] 5 06/08/2024 09:18:23 06/09/2024 11:17:27 [id number] [facility] [address] [place] [address] [phone] 5 07/28/2024 09:12:59 07/28/2024 13:32:34 Type 2 diabetes mellitus 07320506 E11.69 diabetic foot exam completed today. Administra tion of pneumococcal vaccine 55976220 Z23 Prevnar 20 administer ed today. Diabetic p eripheral neuropathy 369372276 E11.40 Patient had positive findings on diabetic foot exam today. X 's on jotter drawings show areas pt has not sensation. Vaccine de clined by patient 9511327444 02 Z28.20 Declined influenza, shingles, and Tdap vaccine today Osteoporos is screening declined [id number] 28606 Z53.20 Pt declined bone density scan. Advance care planning 71 1534904 Z71.89 informatio n provided to patient regarding advanced care plan planning. [id number] Alba Schaffer DO [facility] [address] [place] [address] [phone] 5 08/15/2024 11:17:03 08/16/2024 15:05:36 Acute thoracic back pain 455626237 M54.6 Cardiac etiology ruled out with negative [employer]. pain improved. rest, nsaids, exercises at home if pain returns and does not resolve, go to ER, May need to consider anigogram if pain is the same as prior AMI. [id number] [facility] [address] [place] [address] [phone] 5 10/02/2024 15:00:37 10/02/2024 16:01:44 Acute bacterial bronchitis 822390273 J20.9 Discussed use of otc medication s for symptom management .Push oral fluids and rest.If you develop fever, sob, or start feeling worse then return for re-evaluat ion. [id number] Alba Schaffer DO [facility] [address] [place] [address] [phone] 5 02/22/2025 15:08:56 02/23/2025 15:49:33 Closed injury of head 2531067049 06 S09.90XD [id number] Counseled expect slow improvemen t. Type 2 camilo betes mellitus 26434712 E11.69 04/05/24: Home blood sugars running mid 100s. Patient again declines medication s. We will check A1c and renal function today.03/08- glucose improving, continue current tx, f/u late March to repeat A1c. 4- Basaglar not covered well, pt to call insurance and find out what long acting insulin is covered,sh e will contact us. 01/05/24- insurance no longer covering Levemir after 01/11/24, will change to Lantus, she does have Levemir pens at home she will finish. Will write Basaglar 45u at hs. Peripheral vascular disease 669130783 I73.9 04/05/24: Patient is to keep appointmen t with vascular specialist this week. Continue aspirin and blood pressure medication s.03/08/24- reviewed and discussed MICHAEL's performed on 03/02/24: normal resting MICHAEL b/l, abnormal resting TBI b/l, with occlusion of b/l PT arteries. Counseled she has blockages, I want to send her to a Vascular Specialist , she prefers [facility]. Counseled take 81mg Asa to help with blood flow. Not currently taking cholestero l med, she will consider this. Malignant neoplasm of uterus 058076127 C55 hx of. remote. Low back pain 923177692 M54.50 Counseled muscle pain and spasm. Hyperlipidemia 77410381 E78.5 pt declines medication s. will continue OtC supplement s.03/08/24- counseled on cholestero l control significan ce, with PVD, pt not currently wanting to take med, she will consider. Essential hypertension 57268686 I10 04/05/24: Improved. Continue carvedilol and lisinopril .03/08/24- counseled go ahead and increase Carvedilol to 25mg BID as per Cardiology for increased BP, continue Lisinopril 40mg daily. Type 2 camilo betes mellitus with peripheral angiopathy 980587762 E11.51 Z79.4 E11.40 40702069 04/05/24: Home blood sugars running mid 100s. Patient again declines medication s. We will check A1c and renal function today.03/08- glucose improving, continue current tx, f/u late March to repeat A1c. 4- Basaglar not covered well, pt to call insurance and find out what long acting insulin is covered,sh christian will contact us. 01/05/24- insurance no longer covering Levemir after 01/11/24, will change to Lantus, she does have Levemir pens at home she will finish. Will write Basaglar 45u at . Rheumatoid arthritis 698 63047 M06.9 [id number] stable. [id number] [facility] [address] [place] [address] [phone] 5 03/13/2025 17:01:16 03/15/2025 10:25:47 [id number] Alba Schaffer DO [facility] [address] [place] [address] [phone] 5 03/21/2025 16:19:39 04/03/2025 09:57:39 Essential hypertension 10294597 I10 03/21/25: stable. no med changes.: Improved. Continue carvedilol and lisinopril .03/08/24- counseled go ahead and increase Carvedilol to 25mg BID as per Cardiology for increased BP, continue Lisinopril 40mg daily. Type 2 camilo betes mellitus 37255691 E11.69 03/21/25: a1c imoproved. continue lantus. will check renal labs post hospital d/c. 4: Home blood sugars running mid 100s. Patient again declines medication s. We will check A1c and renal function today.03/08- glucose improving, continue current tx, f/u late March to repeat A1c. 4- Basaglar not covered well, pt to call insurance and find out what long acting insulin is covered,sh e will contact us. 01/05/24- insurance no longer covering Levemir after 01/11/24, will change to Lantus, she does have Levemir pens at home she will finish. Will write Basaglar 45u at hs. [id number] Alba Schaffer DO [facility] [address] [place] [address] 04/12/2025 12:24:59 04/12/2025 13:58:23 Type 2 diabetes mellitus 22122561 E11.69 04/12/25: Counseled on diet, change Boost to Glucerna to help her glucose, counseled on diet and exercise.: a1c imoproved. continue lantus. will check renal labs post hospital d/c. 4: Home blood sugars running mid 100s. Patient again declines medication s. We will check A1c and renal function today.03/08- glucose improving, continue current tx, f/u late March to repeat A1c. 4- Basaglar not covered well, pt to call insurance and find out what long acting insulin is covered,sh e will contact us. 01/05/24- insurance no longer covering Levemir after 01/11/24, will change to Lantus, she does have Levemir pens at home she will finish. Will write Basaglar 45u at hs. Essential hypertension 07128779 I10 04/12/25: Repeat lab today. Consider stopping Amlodipine .03/21/25: stable. no med changes.: Improved. Continue carvedilol and lisinopril .03/08/24- counseled go ahead and increase Carvedilol to 25mg BID as per Cardiology for increased BP, continue Lisinopril 40mg daily. Peripheral vascular disease 842824553 I73.9 04/05/24: Patient is to keep appointmen t with vascular specialist this week. Continue aspirin and blood pressure medication s.03/08/24- reviewed and discussed MICHAEL's performed on 03/02/24: normal resting MICHAEL b/l, abnormal resting TBI b/l, with occlusion of b/l PT arteries. Counseled she has blockages, I want to send her to a Vascular Specialist , she prefers [facility]. Counseled take 81mg Asa to help with blood flow. Not currently taking cholestero l med, she will consider this. [id number] [facility] [address] [place] [address] [phone] 5 06/05/2025 15:48:40 06/05/2025 16:46:53 Cellulitis of left lower limb [id number] 6433528 L03.888 [id number] Discussed to wash with soap and water daily. Take bactrim as prescribed . F/u if symptoms not resolving or worsening. [id number] Alba Schaffer DO [facility] [address] [place] [address] [phone] 5 06/13/2025 09:36:37 06/14/2025 10:33:23 Cellulitis of lower leg 501940864 L03.116 83647269 06/13/25: reassured pt this LLE wound appears to be healing on the inside. Will send in script for Medihoney, to apply twice daily until improved, counseled on nonstick dressing to use to help prevent tearing of her skin. Type 2 camilo betes mellitus 18954171 E11.69 06/13/25: Counseled I don't want her skipping her Lantus, we will lower it from 48u to 35u at hs, continue to monitor glucose closely. A1c lab today.: Counseled on diet, change Boost to Glucerna to help her glucose, counseled on diet and exercise.: a1c imoproved. continue lantus. will check renal labs post hospital d/c. 4: Home blood sugars running mid 100s. Patient again declines medication s. We will check A1c and renal function today.03/08- glucose improving, continue current tx, f/u late March to repeat A1c. 4- Basaglar not covered well, pt to call insurance and find out what long acting insulin is covered, e will contact us. 01/05/24- insurance no longer covering Levemir after 01/11/24, will change to Lantus, she does have Levemir pens at home she will finish. Will write Basaglar 45u at hs. [id number] Alba Schaffer DO [facility] [address] [place] [address] [phone] 5 06/21/2025 13:31:49 06/28/2025 11:42:36 Cellulitis of lower leg 563081502 L03.116 [id number] 06/21/25: unchanged with Bactrim and OTC ointment, pharmacy told pt they didn't have Medihoney. Counseled this is still infected, will treat with a different abx, Cephalexin 500mg capsule TID for 10 days, counseled on wound care, avoid wearing tight legged pants or compressio n socks until this is healed.06/13: reassured pt this LLE wound appears to be healing on the inside. Will send in script for Medihoney, to apply twice daily until improved, counseled on nonstick dressing to use to help prevent tearing of her skin. [id number] Alba Schaffer DO [facility] [address] [place] [address] [phone] 5 06/28/2025 08:11:47 07/19/2025 11:52:34 Cellulitis of lower leg 484680519 L03.116 [id number] 06/28/25: Counseled continue Cephalexin , keep wound clean, keep upcoming appt with Vascular Surgeon on 07/03/25.08/05: unchanged with Bactrim and OTC ointment, pharmacy told pt they didn't have Medihoney. Counseled this is still infected, will treat with a different abx, Cephalexin 500mg capsule TID for 10 days, counseled on wound care, avoid wearing tight legged pants or compressio n socks until this is healed.06/13: reassured pt this LLE wound appears to be healing on the inside. Will send in script for Medihoney, to apply twice daily until improved, counseled on nonstick dressing to use to help prevent tearing of her skin. [id number] CLARISSA MEYER APRN [facility] [address] [place] [address] [phone] 5 07/05/2025 14:36:11 07/05/2025 18:56:29 Pain in left lower limb 565158843 M79.605 [id number] Health Concerns Section Related Observation LastModified by Organization Detai ls LastModified Time None Recorded Concern Status LastModified by Organization Details LastModified Time None Recorded Advance Directives Directive None Recorded Payers Insurance Date Sequence Insurance Name Policy Number Policy Monteiro Covered Member ID Monteiro Member ID Guarantor Name 07/12/2025 2 [employer] (MEDICARE SUPPLEMENT) Carmella Campbell Olena [id number] Carmella Campbell Olena 06/12/2025 1 [place] Carmella Campbell Olena [id number] Carmella Campbell Olena 06/12/2025 [facility] [facility] [place] - [facility] (MEDICARE) Carmella Campbell Olena [id number] 2 Carmella Campbell Olena Notes Date Note Type Note Provider Name and Address Organization Details Recorded Time 06/05/2025 text/html LacerationReport ed by PatientROS as noted in the HPI walk in patientpatient is here today for a laceration on her lower left leg from hitting a toolbox from 2 weeks ago, patient said that it is not healing.Patient is also has been having ankle and foot edema that started 3 weeks ago KAREN VALLES, [address], [phone], [facility], [facility] 06/05/2025 16:46:14 06/13/2025 text/html ROS as noted in the HPI Pt presents for [place] f/u She was seen in [place] for edema on 06/05/25walk in patientpatient is here today for a laceration on her lower left leg from hitting a toolbox from 2 weeks ago, patient said that it is not healing.Patient is also has been having ankle and foot edema that started 3 weeks ago Plan at visit:Cellulitis of left lower extremityDiscussed to wash with soap and water daily. Take bactrim as prescribed. F/u if symptoms not resolving or worsening.L03.116: Cellulitis of left lower limbBactrim DS 800 mg-160 mg tablet - Take 1 tablet(s) every 12 hours by oral route for 10 days. Qty: (20) tablet Refills: 0 Pharmacy: [facility] She is taking the Bactrim.She is concerned that the wound on her left baltazar is not healed yet and has been present for 3 weeks, has been using abx, applying abx ointment and silver cream. She has felt hot all over, as she chronically does, has felt cold, thinking she may have had fever when she suddenly gets cold. She has questions re her blood sugar, after her recent hospitalization glucose was around 200. She is taking Berberine and insulin, having some lows, concerned too low at times.Her glucose seems to be up in the evenings, 200's, too low in the am, 60's.Taking Lantus 48u at hs, admits she didn't take any last night d/t glucose being low.A1c 7.1 on 02/22/25. Alba Schaffer, DO [address] [place] [address], [phone], [facility] 06/20/2025 03:02:46 06/21/2025 text/html ROS as noted in the HPI Pt presents f/u for laceration LLE and BLE edema Seen 06/05/25 in [place] for this, treated with Bactrim.We saw her 06/13/25, prescribed Medihoney for Cellulitis of LLE after hitting it on a toolbox 3 weeks prior.She has not been using the Medihoney, reports pharmacy told her they didn't have it.She has been applying OTC ointment and reports this is not healing, c/o increased pain, redness, drainage. She admits she wears tight fitting pants, wonders if this is effecting her healing. She has upcoming appt with Vascular Surgeon on 07/03/25. Alba Schaffer, [address] [place], [address], [facility], Kayleen. 06/28/2025 08:39:19 06/28/2025 text/html ROS as noted in the HPI Pt presents recheck, 6 days LLE lac. Seen 06/05/25 in [place] for this, treated with Bactrim.We saw her 06/13/25, prescribed Medihoney for Cellulitis of LLE after hitting it on a toolbox 3 weeks prior. She was unable to obtain the Medihoney, pharmacy didn't have it, had been cleaning and apply abx ointment.We saw on 06/22/25, treated with Cephalexin 500mg, counseled on wound care. Today she just wants to check on the healing, wonders if she needs to see Wound Care.She c/o increased pain to the wound that kept her awake through the night last night.This am she scrubbed wound with soap and water, I washed it as hard as I could and it quit hurting . She has upcoming appt with Vascular Surgeon on 07/03/25. Alba Schaffer, [address] [place], [address], [facility], LJuan RLHermila. 07/19/2025 11:21:58 07/05/2025 text/html Skin LesionRepor doug by Patient walk in patientpatient is here today for a sore on her left lower leg that has been being treated by her vascular surgeon and Dr Schaffer for this wound. Patient has been on cefalexin and bactrim. Patient said that the wound is still hurting and itching. CLARISSA MEYER APRN [address] [place], [address], [facility], LJuan RLHermila. 07/05/2025 18:43:08 OBGyn Episode No OBEpisode recorded.
--- OUTSIDE RECORDS SUMMARY | 2025-08-23 20:31 | XMS_ITS | Patient Health Record ---
Author Organization [facility] Address [address] [place] [address] Care Team Providers Care Transfer Iron Operator Name Role Phone Newton Charbel Primary Care Provider UnavailALEXSANDER Kathleen Unavailable [phone] CAMPOSMOR COOLEY Unavailable [phone] ABBY LONG Unavailable [phone] Allergies Allergen (clinical drug ingredient) Drug/Non Drug Allergy documented on EMR Reaction Allergy Type Onset Date Status Penicillin Unknown Drug Allergy Active Results Component Value Reference Range Notes Urinalysis, Routine Reviewed date:02/07/2025 03:45:02 PM Interpretation: Performing Lab: Notes/Report: Urine-Color Yellow Appearance slightly cloudy Glucose - Bilirubin - Ketones - Specific [place] 1.010 Occult Blood - pH 7.5 Urine Protein trace Urobilinogen,Semi-Qn - Nitrite, Urine - WBC Esterase 2+ Urinalysis Gross Exam - Reason For Referral No Information Medications Medication SIG (Take, Route, Frequency, Duration) Notes Start Date End Date Status Co Q 10 Active Paxil 10 MG 1 tablet in the morn ing Orally Once a day Not-Taking amLODIPine Besylate 10 MG 1 tablet Orally Once a day Active Coreg 25 MG 1 tablet with food Orally Twice a day Active Lisinopril 40 MG 1 tablet Orally Once a day Active Problems Problem Type SNOMED Code ICD Code Onset Dates Problem Status W/U Status Risk Notes Problem Urge incontinence of urine (06315651) Urge incontinence (N39.41) Active confirmed Problem Nephrolithiasis (31173773) Nephrolithiasis (N20.0) Active confirmed Problem Constipation (07054631) Constipation (K59.00) Active confirmed Problem Calculus of kidney and ureter (006020663) Calculus of kidney and ureter (N20.2) Active confirmed Problem Overactive urinary bladder (disorder) (467565604) OAB (overactive bladder) (N32.81) Active confirmed Vital Signs Height-cm 157.48 cm 02/07/2025 Weight-kg 70.31 kg 02/07/2025 Height 62 in 02/07/2025 Weight 155 lbs 02/07/2025 BMI 28.35 kg/m2 02/07/2025 Encounters Encounter Location Date Provider Diagnosis [facility], [facility] [address] [place] [address] 02/07/2025 MOR CAMPOS Acute cystitis N30.0 0 ; OAB (overactive bladder) N32.81 ; Calculus of kidney and ureter N20.2 ; Renal cyst, left N28.1 ; Constipation K59.00 ; Hydronephrosis N13.30 and Urge incontinence N39.41 Assessments Encounter Date Diagnosis (ICD Code) Assessment Notes Treatment Notes Treatment Clinical Notes Section Notes 02/07/2025 Acute cystitis (ICD-10 - N30.00) Patient has no t had any further breakthrough infections but notes chronic back pain but has not agreed to further workup with PCP and keeps mentioning nephrolithiasis which I do not think is her cause of mid spine back pain. I have offered further imaging but she defers and does have some bothersome urge incontinence that has not been treated. We have discussed further options and she is amenable to proceeding with Vesicare trial. She will return here with any breakthrough infections and side effects of Vesicare reviewed. Return in 3 months for reassessment and PVR. 02/07/2025 OAB (overactive bladder) (ICD-10 - N32.81) Notes constant leakage, UI. I recommend vesicare, review side effects. Rx sent today. She will return in 8 weeks with UA, PVR. Return sooner with any concerns Will consider cysto in the future for further evaluation of the anatomy if symptoms don't resolve with Vesicare. Patient has not had any further breakthrough infections but notes chronic back pain but has not agreed to further workup with PCP and keeps mentioning nephrolithiasis which I do not think is her cause of mid spine back pain. I have offered further imaging but she defers and does have some bothersome urge incontinence that has not been treated. We have discussed further options and she is amenable to proceeding with Vesicare trial. She will return here with any breakthrough infections and side effects of Vesicare reviewed. Return in 3 months for reassessment and PVR. 02/07/2025 Calculus of kidney and ureter (ICD-10 - N20.2) Patient has not had any further breakthrough infections but notes chronic back pain but has not agreed to further workup with PCP and keeps mentioning nephrolithiasis which I do not think is her cause of mid spine back pain. I have offered further imaging but she defers and does have some bothersome urge incontinence that has not been treated. We have discussed further options and she is amenable to proceeding with Vesicare trial. She will return here with any breakthrough infections and side effects of Vesicare reviewed. Return in 3 months for reassessment and PVR. 02/07/2025 Renal cyst, left (ICD-10 - N28.1) Patient has not had any further breakthrough infections but notes chronic back pain but has not agreed to further workup with PCP and keeps mentioning nephrolithiasis which I do not think is her cause of mid spine back pain. I have offered further imaging but she defers and does have some bothersome urge incontinence that has not been treated. We have discussed further options and she is amenable to proceeding with Vesicare trial. She will return here with any breakthrough infections and side effects of Vesicare reviewed. Return in 3 months for reassessment and PVR. 02/07/2025 Constipation (ICD-10 - K59.00) Patient has no t had any further breakthrough infections but notes chronic back pain but has not agreed to further workup with PCP and keeps mentioning nephrolithiasis which I do not think is her cause of mid spine back pain. I have offered further imaging but she defers and does have some bothersome urge incontinence that has not been treated. We have discussed further options and she is amenable to proceeding with Vesicare trial. She will return here with any breakthrough infections and side effects of Vesicare reviewed. Return in 3 months for reassessment and PVR. 02/07/2025 Hydronephrosis (ICD-10 - N13.30) Patient has no t had any further breakthrough infections but notes chronic back pain but has not agreed to further workup with PCP and keeps mentioning nephrolithiasis which I do not think is her cause of mid spine back pain. I have offered further imaging but she defers and does have some bothersome urge incontinence that has not been treated. We have discussed further options and she is amenable to proceeding with Vesicare trial. She will return here with any breakthrough infections and side effects of Vesicare reviewed. Return in 3 months for reassessment and PVR. 02/07/2025 Urge incontinence (ICD-10 - N39.41) Patient has no t had any further breakthrough infections but notes chronic back pain but has not agreed to further workup with PCP and keeps mentioning nephrolithiasis which I do not think is her cause of mid spine back pain. I have offered further imaging but she defers and does have some bothersome urge incontinence that has not been treated. We have discussed further options and she is amenable to proceeding with Vesicare trial. She will return here with any breakthrough infections and side effects of Vesicare reviewed. Return in 3 months for reassessment and PVR. 02/07/2025 Other Notes chronic back pain, I recommend to f/u with PCP. I, Bonnie Patel, Scribchristian, am scribing for, and in the presence of, Dr. Campos. I, Dr. Mor Campos, personally performed the services prescribed in this documentation , as scribed by Bonnie Patel, in my presence, and it is both accurate and complete. Patient has not had any further breakthrough infections but notes chronic back pain but has not agreed to further workup with PCP and keeps mentioning nephrolithiasis which I do not think is her cause of mid spine back pain. I have offered further imaging but she defers and does have some bothersome urge incontinence that has not been treated. We have discussed further options and she is amenable to proceeding with Vesicare trial. She will return here with any breakthrough infections and side effects of Vesicare reviewed. Return in 3 months for reassessment and PVR. Plan Of Treatment No Information Insurance Providers Payer Name Payer Address Payer Phone Subscriber Number Group Number Insured Name Patient Relationship to Insured Coverage Start Date Coverage End Date [place] Medicare [address] [place] [id number] Carmella Hyatt Self - patient is the insured [facility] [employer] [address] [address] [place] [id number] [phone] [id number] Carmella Hyatt Self - patient is the insured Medical (General) History Medical History History ICD Code bladder infection heart disease measles mumps HTN cancer diabetes stroke arthritis Surgical History Surgery Date(Month/Year) hysterectomy 1999 heart attack and stents 2015 Hospitalization History Reason Date(Month/Year) HTN 07/2024 see surgeries
--- OUTSIDE RECORDS SUMMARY | 2025-08-23 20:31 | XMS_ITS | Encounter Summary ---
Author Organization [employer] [facility] Address [address] [place] [address] Care Team Providers Care Traffic Rate Analyst Name Role Phone Unavailable Primary Care Provider Unavailabl e Encounter Details Date Type Department Care Team (Latest Contact Info) Description 02/20/2000 Outpatient Historical [facility] Kvng Aguero, Jose Cannon MD [address] [place] [phone] Unspecified essential hypertension (Primary Dx); Hematuria Social History Tobacco Use Types Packs/Day Years Used Date Smoking Tobacco: Never Assessed Comments Unknown Sex and Gender Information Value Date Recorded Sex Assigned at Not on file 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
--- OUTSIDE RECORDS SUMMARY | 2025-08-23 20:31 | XMS_ITS | Encounter Summary ---
Author Organization [facility] Address [address] [place] [address] Care Team Providers Care Golf Instructor Name Role Phone Unavailable Primary Care Provider Unavailabl e Encounter Details Date Type Department Care Team (Latest Contact Info) Description 04/20/2002 Outpatient Historical [facility] G[facility]enterology- [place] [address] [facility] [address] [place] [address] Ruddy Jones MD [address] [place] [address] GI SYSTEM SYMPTOMS OTHER (Primary Dx) Social History Tobacco Use Types Packs/Day Years Used Date Smoking Tobacco: Never Assessed Comments Unknown Sex and Gender Information Value Date Recorded Sex Assigned at Not on file 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
--- OUTSIDE RECORDS SUMMARY | 2025-08-23 20:31 | XMS_ITS | Encounter Summary ---
Author Organization [facility] Address [address] [place] [address] Care Team Providers Care Grocery Department Manager Name Role Phone Unavailable Primary Care Provider Unavailabl e Encounter Details Date Type Department Care Team (Latest Contact Info) Description 12/01/[address] 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
--- OUTSIDE RECORDS SUMMARY | 2025-08-23 20:31 | XMS_ITS | Encounter Summary ---
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); Urinary tract infection, site not specified; Vaginitis and vulvovaginitis, unspecified; Lumbago Social History Tobacco Use Types Packs/Day Years Used Date Smoking Tobacco: Never Assessed Comments Unknown Sex and Gender Information Value Date Recorded Sex Assigned at Not on file 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
--- OUTSIDE RECORDS SUMMARY | 2025-08-23 20:31 | XMS_ITS | Encounter Summary ---
Author Organization [facility] Address [address] [place] [address] Care Team Providers Care Supervisor Transferring And Boxing Name Role Phone Unavailable Primary Care Provider Unavailabl e Encounter Details Date Type Department Care Team (Latest Contact Info) Description 04/18/2002 Outpatient Historical [facility] Internal Medicine-[place] [address] [facility] [address] [place] [address] Jose Kumar Jr., MD [address] 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
--- OUTSIDE RECORDS SUMMARY | 2025-08-23 20:31 | XMS_ITS | Encounter Summary ---
Author Organization [employer] [facility] Address [address] [place] [address] Care Team Providers Care Front End Software Developer Name Role Phone Unavailable Primary Care Provider Unavailabl e Encounter Details Date Type Department Care Team (Latest Contact Info) Description 08/31/2000 Outpatient Historical [facility] Nic Marroquin MD [address] [place] [id number] Abdominal pain, unspecified site (Primary Dx) Social History Tobacco Use Types Packs/Day Years Used Date Smoking Tobacco: Never Assessed Comments Unknown Sex and Gender Information Value Date Recorded Sex Assigned at Not on file 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
--- OUTSIDE RECORDS SUMMARY | 2025-08-23 20:31 | XMS_ITS | Encounter Summary ---
Author Organization [facility] Address [address] [place] [address] Care Team Providers Care Hide Curer Name Role Phone Unavailable Primary Care Provider Unavailabl e Encounter Details Date Type Department Care Team (Latest Contact Info) Description 06/25/1999 Outpatient Historical [facility] Internal Medicine-[place] [address] [facility] [address] [place] [address] Jose Kumar Jr., MD [address] [facility] [address] [place] [address] Toxic effect venom (Primary Dx); Nasal/sinus dis NEC; Myalgia and myositis, unspecified Social History Tobacco Use Types Packs/Day Years Used Date Smoking Tobacco: Never Assessed Comments Unknown Sex and Gender Information Value Date Recorded Sex Assigned at Not on file 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
--- NOTE | 2025-08-23 20:34 | ED_ITS ---
HPI - General Adult 2 General: Chief complaint: Urogenital-Female Stated complaint: Confusion,Possibly UTI Time Seen by Provider: 08/23/25 20:31 History of Present Illness: 79yo F w/pmhx of DM, HTN, CAD w/prior LA D and LCx artery stents, ischemic cardiomyopathy w/EF of 40% w/cc of feeling unwell, urinary urgency though she denies dysuria or hematuria. She has not had a fever at home though she's had some chills and malaise last night. She is tachycardic w/HR of 150-155 but she denies chest pain, shortness of breath, orthopnea, dizziness, presyncope or syncope. She's had a bit of a nonproductive cough. She has chronic LE edema for which she has been taking furosemide. She reports nausea at home and states she's not eaten much today. Patient denies diarrhea or blood in stool. No fall or trauma reported. She does not appear to be on any rate control medications or anticoagulation. Related Data Home Medications ?Medication ?Instructions ?Recorded ?Confirmed turmeric 400 mg capsule 400 mg PO DAILY 02/23/2107/06 biotic silver See Rx Instructions .Route 0 05/12/23 07/20/25 .COMPLEX PRN Shortness Of Breath Or Wheezing coenzyme Q10 100 mg capsule 100 mg PO DAILY 01/16/24 1 (CoQ-10) Held on 03/15/25. Instructions: see pcp vitamin B complex 1 tab PO DAILY 01/16/2407/06 cilostazol 100 mg tablet See Rx Instructions .Route . COMPLEX 06/30/24 07/20/25 insulin glargine 100 unit/mL (3 45 unit SUBCUT BEDTIME 06/30/24 07/20/25 mL) subcutaneous pen (Lantus Solostar U-100 Insulin) Held on 03/15/25. Instructions: see pcp polyethylene glycol 3350 17 17 g PO DAILY PRN Constipa tion 03/14/25 07/20/25 gram/dose oral powder (Miralax) Previous Rx's ?Medication ?Instructions ?Recorded lisinopril 40 mg tablet 20 mg (1/2 x 40 mg) PO BID # 90 tabs 08/11/24 nitroglycerin 0.4 mg sublingual 0.4 mg sublingual Q5M PRN chest 01/12/25 tablet pain #25 tabs furosemide 20 mg tablet (Lasix) 20 mg PO DAILY #90 tab s 07/20/25 amlodipine 10 mg tablet See Rx Instructions .Route 1 .COMPLEX #90 tabs cefdinir 300 mg capsule 300 mg PO BID 5 days #10 cap s 08/24/25 Allergies Allergy/AdvReac Type Severity Reaction Status Date / Time ciprofloxacin (From Cipro) Allergy Unknown Verified 02/19/25 16:29 nitrofurantoin (From Allergy Unknown Verified 02/19/25 16:29 Macrobid) Penicillins Allergy Unknown Verified 02/19/25 16:29 [facility] 2 [facility]: Medical History (Updated 08/24/25 @ 01:04 by Domi Fagan MD) PAD (peripheral artery disease) Ischemic cardiomyopathy 05/20/2023: LVEF 60 to 65%, grade 2 diastolic dysfunction CAD (coronary artery disease) Diabetes Dyslipidemia HTN (hypertension) Surgical History S/P cholecystectomy S/P appendectomy S/P hysterectomy Family History Other CAD (coronary artery disease) Cancer Diabetes Social History Smoking and tobacco/nicotine status: former use of tobacco/nicotine Second hand smoke exposure: Yes Alcohol intake: never Substance/Drug Use: never Lives independently: Yes Household members: none Marital status: Single Current occupational status: employed Pets and animals: No Do you think of yourself as: Straight/Heterosexual Current gender identity: Female Physical Exam 2 Narrative: EXAM NARRATIVE: Vital signs were reviewed. Patient is alert and oriented. She has low grade fever. Patient is breathing comfortably, no increased WOB or accessory muscle use. SpO2 is above 95% on RA. Patient has diffuse coarse rhonchi in all lung henriquez. No hypotension. +Tachycardia. Abdomen is soft, nondistended and nontender. No CVA tenderness on percussion of the flanks. Patient is moving all extremities, no deformity or gross injury. +b/l pitting edema. No LE asymmetry. Course 2 Vital Signs: Vital signs: Vital Signs Temperature 99.9 F H 08/23/25 20:45 Pulse Rate 106 H 08/24/25 00:24 Respiratory Rate 14 08/23/25 20:45 Blood Pressure 136/66 08/24/25 00:24 Pulse Oximetry 95 08/24/25 00:24 Oxygen Delivery Me thod Room Air 08/24/25 00:24 MDM - General Adult Medical Decision Making 79yo F w/cc of malaise, chills, urinary urgency. On exam, she has rhonchi in b/l lung henriquez and has a low grade fever. She is tachycardic w/HR of 150-155 suspicious for atrial flutter. Differential diagnosis includes, but is not limited to, urinary tract infection, urosepsis, upper respiratory infection, COVID-19/flu, pneumonia, COPD/asthma exacerbation, CHF/volume overload, electrolyte derangement, sepsis. Patient was treated with IV diltiazem and p.o. Tylenol for supraventricular tachycardia noted on EKG and low-grade fever. Patient was evaluated lab work including CBC, CMP, lactic acid, procalcitonin, troponin, BNP, COVID and flu screen, UA, EKG and chest x-ray. Patient has a low-grade fever here and mildly elevated white blood cell count but procalcitonin and lactic acid are within normal limits. Patient continues to have normal kidney function and liver function. Troponin is minimally elevated with a negative delta, I suspect that this is due to tachycardia of 150 when she came in. UA is questionable for cystitis/UTI as it demonstrates 1+ leuk esterase, 6-10 white blood cells, no bacteria and some contamination. In light of patient's symptoms I will treat for cystitis. She is negative for COVID and flu. CXR shows: IMPRESSION: Questionable left retrocardiac opacity likely atelectasis though consolidation could be present. Again, given fever, elevated WBC, cough, will choose abx that cover both respiratory and urinary pathogens. She is allergic to cipro, macrobid and penicillins; will give Cefdinir. At this time, patient has been monitored for several hours and has not had recurrence of tachycardia. She declined taking her Tylenol. Repeat EKG does not show STEMI and she is back in normal sinus rhythm. Patient feels well enough to go home. I feel that she is stable for discharge and outpatient management. We discussed strict return precautions, I advised her to follow-up closely with her primary care physician by Thursday, Thursday at the latest. Patient expressed understanding of my instructions, her questions were answered. Patient was discharged in stable condition. Lab Data 08/23/25 21:02 08/23/25 21:02 Radiology Impressions Chest X-Ray 08/23/25 20:47 IMPRESSION: Questionable left retrocardiac opacity likely atelectasis though consolidation could be present. Laboratory Results WBC 11.74 10^3/uL (3.29-11.43) H 08/23/25 21:02 RBC 4.05 10^6/uL (3.85-5.65) 08/23/25 21: Hgb 12.00 g/dL (11.27-16.99) 08/23/25 21: Hct 36.7 % (36-47) 08/23/25 21: MCV 90.6 fl (85-98) 08/23/25 21: MCH 29.6 pg (27-33) 08/23/25 21: MCHC 32.7 g/dL (30-55) 08/23/25 21: RDW 12.7 % (12.1-15.1) 08/23/25 21: Plt Count 242 10^3/cmm (157-399) 08/23/25 21: MPV 10.1 fL (7.4-10.4) 08/23/25 21: Neut % (Auto) 80.6 % 08/23/25 21: Lymph % (Auto) 11.4 % 08/23/25 21:02 [place] % (Auto) 7.1 % 08/23/25 21: Eos % (Auto) 0.2 % 08/23/25 21: Baso % (Auto) 0.3 % 08/23/25 21:02 Neut # (Auto) 9.47 10^3/uL (1.8-7.7) H 08/23/25 21:02 Lymph # (Auto) 1.3 10^3/uL (0.8-4.8) 08/23/25 21:02 [place] # (Auto) 0.8 10^3/uL (0.2-0.9) 08/23/25 21:02 Eos # (Auto) 0.0 10^3/uL (0.0-0.8) 08/23/25 21:02 Baso # (Auto) 0.0 10^3/uL (0.0-0.1) 08/23/25 21:02 Nucleated RBC % (auto) 0 % 08/23/25 21:02 Nucleated RBCs # 0.0 /100WBC 08/23/25 21:02 Sodium 141 mmol/L (136-145) 08/23/25 21:02 Potassium 4.1 mmol/L (3.5-5.1) 08/23/25 21:02 Chloride 106 mmol/L (98-107) 08/23/25 21:02 Carbon Dioxide 21 mmol/L (22-29) L 08/23/25 21:02 Anion Gap 18.1 (5-19) 08/23/25 21:02 BUN 14 mg/dL (8-23) 08/23/25 21:02 Creatinine 0.7 mg/dL (0.5-0.9) 08/23/25 21:02 GFR Calculation Not Reportable 08/23/25 21:02 Glucose 219 mg/dL (65-115) H 08/23/25 21:02 Calculated Osmolality 299 mOsm/kg (285-295) H 08/23/25 21:02 Lactic Acid 1.0 mmol/L (0.5-2.2) 08/23/25 21:02 Calcium 10.2 mg/dL (8.5-10.5) 08/23/25 21:02 Total Bilirubin 0.5 mg/dL (0.15-1.2) 08/23/25 21:02 AST 19 U/L (0-32) 08/23/25 21:02 ALT 18 U/L (0-33) 08/23/25 21:02 Alkaline Phosphatase 88 U/L (35-105) 08/23/25 21:02 Troponin T Baseline 21 ng/L (0-10) H 08/23/25 21:02 Troponin T 120 Minute 17.69 ng/L (0-10) H 08/23/25 22:53 Delta Troponin T -3.31 ABS# (0-10) L 08/23/25 22:53 NT-Pro-B Natriuret Pep 215 pg/mL (0-450) 08/23/25 21:02 Total Protein 7.4 g/dL (6.6-8.7) 08/23/25 21: Albumin 4.7 g/dL (3.5-5.2) 08/23/25 21:02 Globulin 2.7 g/dL (1.3-4.6) 08/23/25 21:02 Procalcitonin 0.34 ng/mL (0-0.5) 08/23/25 21:02 Urine Color Yellow (Yellow) 08/23/25 23:17 Urine Appearance Clear (CLEAR) 08/23/25 23:17 Urine pH 5.0 (5-7) 08/23/25 23:17 Ur Specific [place] 1.018 (1.005-1.030) 08/23/25 23:17 Urine Protein Negative (Negative) 08/23/25 23:17 Urine Glucose (UA) Trace (Normal) H 08/23/25 23:17 Urine Ketones Trace (Negative) 08/23/25 23:17 Urine Blood Negative (Negative) 08/23/25 23:17 Urine Nitrate Negative (Negative) 08/23/25 23:17 Urine Bilirubin Negative (Negative) 08/23/25 23:17 Urine Urobilinogen 0.2 mg/dL (Negative) 08/23/25 23:17 Ur Leukocyte Esterase 1+ (Negative) A 08/23/25 23:17 Urine RBC 0-4 /hpf (0-2) H 08/23/25 23:17 Urine WBC 6-10 /hpf (0-5) 08/23/25 23:17 Ur Squamous Epith Cells 0-5 /hpf (0-5) 08/23/25 23:17 Amorphous Sediment Not Reportable 08/23/25 23:17 Urine Bacteria Trace /hpf (NONE) 08/23/25 23:17 Hyaline Casts 0.40 /lpf 08/23/25 23:17 Urine Yeast 3+ /hpf H 08/23/25 23:17 Influenza A (PCR) Negative (Negative) 08/23/25 21:03 Influenza Type B (PCR) Negative (Negative) 08/23/25 21:03 RSV (PCR) Negative (Negative) 08/23/25 21:03 SARS-CoV-2 (PCR) Negative (Negative) 08/23/25 21:03 All radiology interpretation(s) finalized by discharge EKG Data EKG 1: Interpretation: Supraventricular tachycardia with a heart rate of 155, suspicious for atrial flutter, possible LAD, normal/narrow complex QRS, normal QTc, no STEMI. Computer generated interpretation: Chest X-Ray 08/23/25 20:47 IMPRESSION: Questionable left retrocardiac opacity likely atelectasis though consolidation could be present. EKG 2: Interpretation: Sinus tachycardia with a heart rate of 105, possible AD, normal intervals, no STEMI. Computer generated interpretation: Chest X-Ray 08/23/25 20:47 IMPRESSION: Questionable left retrocardiac opacity likely atelectasis though consolidation could be present. Discharge Plan Discharge Patient Disposition: Home Clinical Impression: Tachycardia, Paroxysmal SVT (supraventricular tachycardia) Acute cystitis Qualifiers: Hematuria presence: with hematuria Qualified Code(s): N30.01 - Acute cystitis with hematuria Condition: Stable Prescriptions: New cefdinir 300 mg capsule 300 mg PO BID 5 Days Qty: 10 0RF No Action biotic silver aerosol See Rx Instructions .ROUTE .COMPLEX PRN (Reason: Shortness Of Breath Or Wheezing) Rx Instructions: Use as directed inhaled intranasal as needed. nitroglycerin 0.4 mg tablet, sublingual 0.4 mg sublingual Q5M PRN (Reason: chest pain) Qty: 25 2RF Rx Instructions: do not exceed 3 doses per episode furosemide [Lasix] 20 mg tablet 20 mg PO DAILY Qty: 90 3RF amlodipine 10 mg tablet See Rx Instructions .ROUTE .COMPLEX Qty: 90 3RF Dose Instruction: TAKE 1 TABLET BY MOUTH EVERY DAY Rx Instructions: TAKE 1 TABLET BY MOUTH EVERY DAY turmeric 400 mg Capsule 400 mg PO DAILY cilostazol 100 mg tablet See Rx Instructions .ROUTE .COMPLEX Rx Instructions: TAKE 1 TABLET BY MOUTH 30 MINUTES BEFORE OR TWO HOURS AFTER BREAKFAST AND DINNER TWICE DAILY. insulin glargine [Lantus Solostar U-100 Insulin] 100 unit/mL (3 mL) insulin pen 45 unit SUBCUT BEDTIME lisinopril 40 mg tablet 20 mg PO BID Qty: 90 3RF vitamin B complex Tablet 1 tab PO DAILY coenzyme Q10 [CoQ-10] 100 mg Capsule 100 mg PO DAILY polyethylene glycol 3350 [Miralax] 17 gram/dose powder 17 g PO DAILY PRN (Reason: Constipation) Discharge Orders: Discharge ED (Routine); Ordered 08/24/25 Ordered By: Domi Fagan Referrals: Charbel Glez DO [Primary Care Provider, Family Practice] Patient Instructions: Opioid Safety, Pain Management, Patient Portal & [place] Instructions, Urinary Tract Infection in Older Adults (ED), Atrial Tachycardia (ED), Supraventricular Tachycardia (ED) Activity Restrictions/Additional Instructions: Please continue to monitor your condition closely at home. Take Tylenol 500- 1000mg every six hours for pain and inflammation. If your condition worsens or additional concerns arise, please return promptly to the emergency department for reassessment. Follow up with your primary care doctor closely, by Thursday ideally. Print Language: Georgian Coding Level of Care Code ED Supervisor [employer] Rec[employer] for Filomena Nguyen
[2025-08-23 20:37] VITALS: BP 135/78; PULSE 157; RESP 14; TEMP 37.7; O2SAT 97; BMI 27.0
[2025-08-23 20:45] VITALS: BP 135/78; PULSE 157; RESP 14; TEMP 37.7; O2SAT 97
--- NOTE | 2025-08-23 20:47 | XRR_ITS ---
PROCEDURE INFORMATION: Exam: XR Chest Exam date and time: 08/23/2025 9:07 PM Age: 79 years old Clinical indication: Other: Confusion TECHNIQUE: Imaging protocol: Radiologic exam of the chest. Views: 1 view. COMPARISON: CR XR chest 1V portable [id number] 03/13/2025 5:15 PM FINDINGS: Lungs: Decreased lung volumes with basilar atelectatic changes. Suboptimal evaluation of the left lung base due to overlying soft tissue and heart. Questionable left retrocardiac opacity likely atelectasis though consolidation could be present. Pleural spaces: No pleural effusion or pneumothorax. Heart/Mediastinum: The cardiomediastinal silhouette is stable. Bones/joints: No acute osseous abnormalities are seen. XR/XR chest 1V portable [id number] IMPRESSION: Questionable left retrocardiac opacity likely atelectasis though consolidation could be present.
--- NOTE | 2025-08-23 20:51 | ECG_ITS ---
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 Measurements Intervals [place] Rate: 155 P: 0 NJ: 0 QRS: -5 QRSD: 81 T: 53 QT: 275 QTc: 443 Interpretive Statements NARROW COMPLEX TACHYCARDIA LOW QRS VOLTAGE IN PRECORDIAL LEADS [QRS DEFLECTION < 1.0 mV IN CHEST LEADS] POSSIBLE ANTERIOR MYOCARDIAL INFARCTION , PROBABLY OLD [30 ms Q WAVE IN V3/V4, OR R < 0.2 mV IN V4] Compared to ECG 03/13/2025 17:35:24 Low QRS voltage now present Myocardial infarct finding still present Electronically Signed On 08-24-2025 19:56:19 TRUCK DESPATCHER by Riccardo Suárez M.D. [email or web address]
[2025-08-23 21:16] LABS: Hematocrit 36.7 % (36-47); Hemoglobin 12.00 g/dL (11.27-16.99); Mean Corpuscular HGB Conc 32.7 g/dL (30-55); Mean Corpuscular Hemoglobin 29.6 pg (27-33); Mean Corpuscular Volume 90.6 fl (85-98); Nucleated Red Blood Cells % 0 %; Platelet Count 242 10^3/cmm (157-399); Red Blood Count 4.05 10^6/uL (3.85-5.65); White Blood Count 11.74 10^3/uL (3.29-11.43)
[2025-08-23 21:32] LABS: Troponin(5th) Baseline 21 ng/L (0-10)
[2025-08-23 21:35] LABS: Alanine Aminotransferase 18 U/L (0-33); Albumin Level 4.7 g/dL (3.5-5.2); Alkaline Phosphatase 88 U/L (35-105); Anion Gap 18.1 (5-19); Aspartate Amino Transferase 19 U/L (0-32); Blood Urea Nitrogen 14 mg/dL (8-23); Calcium 10.2 mg/dL (8.5-10.5); Carbon Dioxide 21 mmol/L (22-29); Chloride 106 mmol/L (98-107); Globulin 2.7 g/dL (1.3-4.6); Glucose 219 mg/dL (65-115); Osmolality Calculated 299 mOsm/kg (285-295); Potassium 4.1 mmol/L (3.5-5.1); Sodium 141 mmol/L (136-145); Total Protein 7.4 g/dL (6.6-8.7)
[2025-08-23 21:36] LABS: Lactic Sepsis W/Reflex 1.0 mmol/L (0.5-2.2)
[2025-08-23 21:40] LABS: Procalcitonin 0.34 ng/mL (0-0.5)
[2025-08-23] MEDS: dilTIAZem 5 mg/mL SDV 5 mL 18 MG IVP (21:45)
[2025-08-23 21:50] VITALS: BP 139/70; PULSE 142; O2SAT 98
[2025-08-23 22:15] LABS: NT Pro B Type Natriuretic Pept 215 pg/mL (0-450)
[2025-08-23 22:24] LABS: Respiratory Syncytial Virus Ce NEGATIVE (Negative); SARS-CoV-2 PCR NEGATIVE (Negative)
[2025-08-23 22:30] VITALS: BP 140/66; PULSE 104; O2SAT 97
--- NOTE | 2025-08-23 22:47 | ECG_ITS ---
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 Measurements Intervals [place] Rate: 105 P: 88 MN: 197 QRS: 2 QRSD: 81 T: 46 QT: 335 QTc: 443 Interpretive Statements SINUS TACHYCARDIA LOW QRS VOLTAGE IN PRECORDIAL LEADS [QRS DEFLECTION < 1.0 mV IN CHEST LEADS] NONSPECIFIC T-WAVE ABNORMALITY ABNORMAL RHYTHM ECG Compared to ECG 08/23/2025 20:51:18 T-wave abnormality now present Supraventricular tachycardia no longer present Myocardial infarct finding no longer present Electronically Signed On 08-25-2025 19:47:52 AIR DRILL OPERATOR by Milton Diaz M.D. [email or web address]
[2025-08-23 23:00] VITALS: BP 140/69; PULSE 106; O2SAT 96
[2025-08-23 23:23] LABS: Troponin 5 2HR 17.69 ng/L (0-10); Troponin 5 2HR Delta -3.31 ABS# (0-10)
[2025-08-23 23:30] VITALS: BP 128/63; PULSE 104
[2025-08-23 23:39] LABS: Glucose Urine UA Trace (Normal); Nitrate Urine Negative (Negative); Specific Gravity, Urine 1.018 (1.005-1.030)
[2025-08-23 23:42] LABS: Add Urine Microscopic? YES
[2025-08-24 00:04] LABS: UA Slide Review UA Slide Review Perf
[2025-08-24 00:24] VITALS: BP 136/66; PULSE 106; O2SAT 95
[2025-08-24 01:26] VITALS: BP 135/66; PULSE 106; RESP 14; O2SAT 96
== END 2025-08-24 01:33 | disposition home or self-care (01) ==
PROVIDERS: Emergency Provider Emergency Medicine; PCP Electrodiagnostic Medicine
DX: I47.19 Other supraventricular tachycardia (principal); N30.01 Acute cystitis with hematuria; Z79.4 Long term (current) use of insulin; Z11.52 Encounter for screening for COVID-19; Z87.891 Personal history of nicotine dependence; I25.10 Atherosclerotic heart disease of native coronary artery without angina pectoris; E11.9 Type 2 diabetes mellitus without complications; E78.5 Hyperlipidemia, unspecified; I10 Essential (primary) hypertension
CPT/HCPCS: 36415; 71045; 80053; 81001; 83605; 83880; 84145; 84484; 85025; 87040; 87086; 87106; 87637; 93005; 96361; 96374; 99285; J3490; J7040; J9999